=== PATIENT | female | born 1940 ===

== ENCOUNTER 2021-02-12 06:48 | Outpatient (REF) | payer MEDICARE, SELFPAY ==
[2021-02-12 08:34] LABS: Alanine Aminotransferase 12 U/L (0-31); Albumin Level 3.9 g/dL (3.5-5.0); Alkaline Phosphatase 76 U/L (39-117); Anion Gap 13 (12-20); Aspartate Amino Transferase 21 U/L (5-31); Bilirubin Total 0.3 mg/dL (0.0-1.0); Blood Urea Nitrogen 13 mg/dL (9-16); Calcium 8.9 mg/dL (8.4-10.2); Carbon Dioxide 21 mmol/L (22-29); Chloride 101 mmol/L (96-108); Cholesterol 126 mg/dL; Estimated Glomerular Filt Rate > 60; Glucose Fasting 94 mg/dL (60-99); HDL Cholesterol 38 mg/dL; LDL Cholesterol Calculated 65 mg/dl; Potassium 4.8 mmol/L (3.3-5.1); Sodium 130 mmol/L (135-145); Total Protein 7.3 g/dL (6.5-8.0); Triglycerides 116 mg/dL
[2021-02-12 08:47] LABS: TSH reflex Free T4 13.53 uIU/mL (0.32-4.0)
[2021-02-12 09:00] LABS: Thyroid Stimulating Hormone 16.52 uIU/mL (0.32-4.0)
[2021-02-12 10:33] LABS: Free T4 (Free Thyroxine) 1.09 ng/dL (0.71-1.85)
[2021-02-18 12:31] LABS: Vitamin D 25-OH, D2 <4 ng/mL; Vitamin D 25-OH, D3 23 ng/mL; Vitamin D 25-OH, Total 23 ng/mL (30-100)
== END 2021-02-12 06:49 | disposition home or self-care (01) ==
LOC: HO.LAB 06:48
PROVIDERS: PCP Internal Medicine; Visit Provider Internal Medicine
DX: E78.5 Hyperlipidemia, unspecified (principal); E03.9 Hypothyroidism, unspecified; I10 Essential (primary) hypertension; E55.9 Vitamin D deficiency, unspecified
CPT/HCPCS: 36415; 80053; 80061; 82306; 84439; 84443

== ENCOUNTER 2021-08-20 13:07 | Outpatient (REF) | payer MEDICARE, SELFPAY ==
[2021-08-20 14:10] LABS: Alanine Aminotransferase 13 U/L (0-31); Albumin Level 3.9 g/dL (3.5-5.0); Alkaline Phosphatase 71 U/L (39-117); Anion Gap 10 (12-20); Aspartate Amino Transferase 22 U/L (5-31); Bilirubin Total 0.3 mg/dL (0.0-1.0); Blood Urea Nitrogen 20 mg/dL (9-16); Calcium 9.1 mg/dL (8.4-10.2); Carbon Dioxide 24 mmol/L (22-29); Chloride 100 mmol/L (96-108); Cholesterol 118 mg/dL; Estimated Glomerular Filt Rate > 60; Glucose Fasting 108 mg/dL (60-99); HDL Cholesterol 39 mg/dL; LDL Cholesterol Calculated 52 mg/dl; Potassium 4.6 mmol/L (3.3-5.1); Sodium 129 mmol/L (135-145); Triglycerides 136 mg/dL
[2021-08-20 14:30] LABS: Thyroid Stimulating Hormone 0.51 uIU/mL (0.32-4.0)
== END 2021-08-20 13:08 | disposition home or self-care (01) ==
LOC: HO.LAB 13:07
PROVIDERS: PCP Internal Medicine; Visit Provider Internal Medicine
DX: E78.5 Hyperlipidemia, unspecified (principal); E03.9 Hypothyroidism, unspecified
CPT/HCPCS: 36415; 80053; 80061; 84443

== ENCOUNTER 2021-12-31 08:22 | Outpatient (REF) | payer MEDICARE, SELFPAY ==
[2021-12-31 09:18] LABS: Alanine Aminotransferase 16 U/L (0-31); Albumin Level 3.7 g/dL (3.5-5.0); Alkaline Phosphatase 77 U/L (39-117); Anion Gap 13 (12-20); Aspartate Amino Transferase 21 U/L (5-31); Bilirubin Total 0.3 mg/dL (0.0-1.0); Blood Urea Nitrogen 13 mg/dL (9-16); Calcium 8.7 mg/dL (8.4-10.2); Carbon Dioxide 22 mmol/L (22-29); Chloride 101 mmol/L (96-108); Cholesterol 97 mg/dL; Estimated Glomerular Filt Rate > 60; Glucose Fasting 105 mg/dL (60-99); HDL Cholesterol 43 mg/dL; LDL Cholesterol Calculated 39 mg/dl; Potassium 4.9 mmol/L (3.3-5.1); Sodium 131 mmol/L (135-145); Total Protein 6.6 g/dL (6.5-8.0); Triglycerides 75 mg/dL
[2021-12-31 09:21] LABS: Osmolality, Serum 274 mosm/kg (281-305)
[2021-12-31 09:41] LABS: Thyroid Stimulating Hormone 0.32 uIU/mL (0.32-4.0)
== END 2021-12-31 08:23 | disposition home or self-care (01) ==
LOC: HO.LAB 08:22
PROVIDERS: PCP Internal Medicine; Visit Provider Internal Medicine
DX: I10 Essential (primary) hypertension (principal); E03.9 Hypothyroidism, unspecified; E78.5 Hyperlipidemia, unspecified; E87.1 Hypo-osmolality and hyponatremia
CPT/HCPCS: 36415; 80053; 80061; 83930; 84300; 84443

== ENCOUNTER 2022-05-13 08:42 | Inpatient (IN) | payer MEDICARE, SELFPAY ==
[2022-05-13] VITALS (17 sets, daily range): BP systolic 162–210; BP diastolic 47–79; PULSE 81–95; RESP 12–24; TEMP 36–37.5; O2SAT 97–100; BMI 21.6
--- NOTE | 2022-05-13 11:15 | ECG_ITS ---
Test Reason : High blood pressure Blood Pressure : / mmHG Vent. Rate : 092 BPM Atrial Rate : 092 BPM P-R Int : 112 ms QRS Dur : 072 ms QT Int : 338 ms P-R-T Axes : 065 040 052 degrees QTc Int : 417 ms Normal sinus rhythm Normal ECG When compared with ECG of 23-NOV-2019 23:06, No significant change was found Referred By: Janina Meza Electronically Signed By:Moo Sanchez
--- NOTE | 2022-05-13 11:20 | ED.SOB ---
HPI - SOB/Dyspnea General Chief Complaint: Dyspnea Stated Complaint: Difficulty breathing/Swollen legs Time Seen by Provider: 05/13/22 10:57 Source: patient, family (Daughter) and human resources project manager Mode of arrival: ambulatory Limitations: no limitations History of Present Illness HPI Narrative: 82-year-old female brought him with her daughter for evaluation of increase shortness of breath over the past 2 weeks. Patient lives home with her family mostly independent until 2 weeks ago when she started to deteriorate and having difficulty breathing mostly with exertion and sleeping at night, patient also noted that both legs are swollen and edematous bilaterally, subjectively patient thinks she gained weight and more heavier. Patient describes occasional paroxysmal nocturnal dyspnea. No coughing, no sputum production, no fever, no chills, no CP. Patient looks pale daughter stated that her normal color and decline any blood loss in the urine or stool. Related Data Home Medications Medication Instructions Recorded Confirmed bismuth subsalicylate 262 mg/15 mL 524 mg PO Q30M PRN Indigestion 05/13/22 05/13/22 oral suspension (Pepto-Bismol) loratadine 10 mg tablet (Claritin) 10 mg PO DAILY PRN Allergy Symptoms 05/13/22 05/13/22 naproxen sodium 220 mg tablet 220 mg PO Q12H PRN Pain 05/13/22 05/13/22 (Aleve) Previous Rx's Medication Instructions Recorded lisinopril 40 mg tablet 40 mg PO DAILY 90 days #90 tabs 07/06/21 atorvastatin 40 mg tablet 40 mg PO BEDTIME 90 days #90 tabs 04/02/22 levothyroxine 88 mcg tablet 88 mcg PO DAILY #90 tabs 04/02/22 Allergies Allergy/AdvReac Type Severity Reaction Status Date / Time hydrochlorothiazide Allergy Intermediate restlessnes Verified 01/14/22 08:08 s amlodipine AdvReac Intermediate dizziness, Verified 01/14/22 08:08 tiredness Review of Systems Review of Systems: All other systems are reviewed and are negative Constitutional: Reports as per HPI and Reports no additional constitutional complaints Eyes: Reports as per HPI and Reports no additional eye complaints Reports system reviewed and no additional complaints, except as documented Cardiovascular: Reports as per HPI and Reports no additional cardiovascular complaints Respiratory: Reports as per HPI and Reports no additional respiratory complaints Gastrointestinal: Reports as per HPI and Reports no additional gastrointestinal complaints Genitourinary: Reports no additional female genitourinary complaints Musculoskeletal: Reports no additional musculoskeletal complaints Skin/Breast: Reports system reviewed and no additional complaints, except as docu Psychiatric: Reports no additional psychiatric complaints Endocrine: Reports no additional endocrine complaints Hematologic/Lymphatic: Reports no additional hematologic/lymphatic complaints Allergic/Immunologic: Reports no additional allergic/immunologic complaints Reports system reviewed and no additional complaints, except as documented and Reports Abnormal speech present [facility] Past Medical History Medical History Dyslipidemia Essential hypertension Hyponatremia Hypothyroidism Osteoporosis Surgical History History of breast biopsy History of colonoscopy Family History Family History Father No problems noted. Mother In good health Social History Social History Housing: Apartment Alcohol intake: never Patient Tobacco Use Status: Current everyday Tobacco user Tobacco use type: Cigarette Cigarettes Per Day: 3 e-Cigarette/Vaping Use: Never Used Second Hand Smoke Exposure: No Advance Directives: No Advance Directives Information Provided: Yes service: No Current occupational status: disabled Cognitive needs: No Hearing needs: No Vision needs: No Physical Exam Vital Signs: Vital Signs: Last Vital Signs Temp 98.3 F 05/13/22 10:50 Pulse 82 05/13/22 14:00 Resp 18 05/13/22 14:00 BP 171/61 H 05/13/22 14:00 Pulse Ox 99 05/13/22 14:00 O2 Del Method 05/13/22 14:00 BMI result Body Mass Index 21.6 Vital signs have been reviewed as appeared to be correct. Blood pressure normal. Heart rate normal. Respiration rate normal. Temperature normal. Oxygen saturation normal. Appearance: Alert. Oriented X3. No acute distress. Head: Normal external exam. Normocephalic. Atraumatic. No Albrecht signs noted. No raccoon eyes noted Eyes: PERRLA. EOMI. Conjunctiva and sclera normal. Eyelids normal. ENT: TM's Normal. Pharynx normal. Uvula midline. Moist mucous membranes. No trismus noted. No drooling noted. No muffled voice noted. Neck: Normal inspection. Neck supple. FROM. No adenopathy. Thyroid Normal. No meningeal signs. No neck mass noted. CVS: Normal heart rate and rhythm. Heart sound normal. No murmurs noted. Pulses normal throughout. Respiratory: No respiratory distress. Painless inspiration. Breath sounds normal. Bilateral basilar rales. Chest nontender. No accessory muscle usage noted or decreased air movement noted. Abdomen: Soft and nontender. Bowel sounds normal in all 4 quadrants. No distention noted. No organomegaly noted. No visible injury noted. Rectal exam: Brown stool with no blood. Back: No CVA tenderness. Full range of motion noted. Skin: Skin warm and dry. Normal skin color. Normal skin turgor. No rashes/lesions/lacerations noted. Extremities: +3 bilateral lower extremity pitting edema. Extremities exhibit normal range of motion. Extremities nontender. Neuro: Oriented X 3. Cranial nerve exam: II-XII are grossly intact No motor deficit. No sensory deficit. Reflexes normal. Course Course Course Narrative: 82-year-old female came in for evaluation of severe shortness of breath that is progressively getting worse over the past 2 weeks with progressive swelling of bilateral lower extremities found to be severely anemic with significant drop of H&H with no obvious source of blood loss. Will require diuresis/nitro/blood transfusion/serial CBC/admission. Medications Administered Discontinued Medications Generic Name Dose Route Start Last Admin Trade Name Freq PRN Reason Stop Dose Admin Furosemide 40 mg 05/13/22 11:24 05/13/22 11:46 Furosemide 40 Mg/4 Ml Vial IVPUSH 05/13/22 11:25 40 mg ONCE ONE Administration Protocol Nitroglycerin 0.5 inch 05/13/22 11:25 05/13/22 11:45 Nitroglycerin 2 % Oint 1 Gm Packet TRANSDERMA 05/13/22 11:26 0.5 inch ONCE ONE Administration Medical Decision Making Differential Diagnosis Differential Diagnoses: The differential diagnosis associated with the presentation includes (Severe anemia, acute/chronic blood loss, congestive heart failure, ACS.) Admission/Observation Consideration of admission/observation: Escalation of care including admission/observation considered Consult Healthcare Provider Management of the patient was discussed with: Hospitalist Lab Data MDM Lab Attestation statement: I reviewed the patient's lab results. Result Diagrams: 05/13/22 11:33 05/13/22 11:34 Labs: Lab Results 05/13/22 05/13/22 05/13/22 Range/Units 11:24 11:33 11:33 WBC 4.3 L (4.8-10.8) X10*3/uL RBC 3.52 L (4.20-5.50) X10*6/uL Hgb 4.6 L* (12.0-16.0) g/dl Hct 18.9 L* (37.0-47.0) % MCV 53.7 L (80.0-98.0) fL MCH 13.1 L (27.0-33.0) pg MCHC 24.3 L (31.0-35.0) g/dl RDW 23.5 H (11.0-16.0) % Plt Count 273 (160-400) X10*3/uL MPV Not Reportable Immature Gran % (Auto) 0.7 H (0.0-0.4) % Neut % (Auto) 72.0 (45-73) % Lymph % (Auto) 18.2 L (20-40) % [place] % (Auto) 7.5 (2-11) % Eos % (Auto) 0.2 (0-4) % Baso % (Auto) 1.4 (0-2) % Lymph # (Auto) 0.8 L (1.2-4.9) X10*3/uL [place] # (Auto) 0.3 (0.1-1.2) X10*3/uL Eos # (Auto) 0.0 (0.0-0.4) X10*3/uL Baso # (Auto) 0.1 (0.0-0.2) X10*3/uL Abs Immat Gran (auto) 0.03 (0.00-0.03) X10*3/uL Absolute Neuts (auto) 3.1 (2.0-8.3) x10*3/uL Absolute Nucleated RBC 0.030 H (0.0-0.012) X10*3/uL Nucleated RBC % (auto) 0.7 H (0.0-0.2) /100WBC Sodium (135-145) mmol/L Potassium (3.3-5.1) mmol/L Chloride (96-108) mmol/L Carbon Dioxide (22-29) mmol/L Anion Gap (12-20) BUN (9-16) mg/dL Creatinine (0.5-1.4) mg/dL Estim Creat Clear Calc Estimated GFR Random Glucose (60-115) mg/dL Calcium (8.4-10.2) mg/dL Total Bilirubin (0.0-1.0) mg/dL Direct Bilirubin (0.0-0.5) mg/dL AST (5-31) U/L ALT (0-31) U/L Alkaline Phosphatase (39-117) U/L Troponin I High Sens 16.9 (<3.5-17.0) ng/L B-Natriuretic Peptide (<100) pg/mL Total Protein (6.5-8.0) g/dL Albumin (3.5-5.0) g/dL Lipase (8-78) U/L Urine Color Urine Appearance Urine pH (5.0-9.0) Ur Specific [place] (1.005-1.025) Urine Protein (Neg-Trace) mg/dL Urine Glucose (UA) (Negative) mg/dL Urine Ketones (Negative) mg/dL Urine Blood (Negative) Urine Nitrite (Negative) Ur Leukocyte Esterase (Negative) Urine RBC (0-2) /HPF Urine WBC (0-5) /HPF Ur Squamous Epith Cells (0-2) /HPF Urine Bacteria (None Seen) Hyaline Casts (0-2) /LPF Stool Occult Blood (NEGATIVE) Influenza Type A (PCR) NEGATIVE (Negative) Influenza Type B (PCR) NEGATIVE (Negative) RSV RNA Qual (PCR) NEGATIVE (Negative) SARS-CoV-2 RNA (RT-PCR) NEGATIVE (Negative) Blood Type Antibody Screen Crossmatch 05/13/22 05/13/22 05/13/22 Range/Units 11:34 11:34 11:38 WBC (4.8-10.8) X10*3/uL RBC (4.20-5.50) X10*6/uL Hgb (12.0-16.0) g/dl Hct (37.0-47.0) % MCV (80.0-98.0) fL MCH (27.0-33.0) pg MCHC (31.0-35.0) g/dl RDW (11.0-16.0) % Plt Count (160-400) X10*3/uL MPV Immature Gran % (Auto) (0.0-0.4) % Neut % (Auto) (45-73) % Lymph % (Auto) (20-40) % [place] % (Auto) (2-11) % Eos % (Auto) (0-4) % Baso % (Auto) (0-2) % Lymph # (Auto) (1.2-4.9) X10*3/uL [place] # (Auto) (0.1-1.2) X10*3/uL Eos # (Auto) (0.0-0.4) X10*3/uL Baso # (Auto) (0.0-0.2) X10*3/uL Abs Immat Gran (auto) (0.00-0.03) X10*3/uL Absolute Neuts (auto) (2.0-8.3) x10*3/uL Absolute Nucleated RBC (0.0-0.012) X10*3/uL Nucleated RBC % (auto) (0.0-0.2) /100WBC Sodium 129 L (135-145) mmol/L Potassium 4.1 (3.3-5.1) mmol/L Chloride 99 (96-108) mmol/L Carbon Dioxide 24 (22-29) mmol/L Anion Gap 10 L (12-20) BUN 9 (9-16) mg/dL Creatinine 0.69 (0.5-1.4) mg/dL Estim Creat Clear Calc 38.9 Estimated GFR > 60 Random Glucose 108 (60-115) mg/dL Calcium 8.8 (8.4-10.2) mg/dL Total Bilirubin 0.6 (0.0-1.0) mg/dL Direct Bilirubin 0.3 (0.0-0.5) mg/dL AST 31 (5-31) U/L ALT 22 (0-31) U/L Alkaline Phosphatase 77 (39-117) U/L Troponin I High Sens (<3.5-17.0) ng/L B-Natriuretic Peptide 1056 H (<100) pg/mL Total Protein 6.6 (6.5-8.0) g/dL Albumin 3.7 (3.5-5.0) g/dL Lipase 19 (8-78) U/L Urine Color Yellow Urine Appearance Clear Urine pH 7.0 (5.0-9.0) Ur Specific [place] 1.010 (1.005-1.025) Urine Protein Trace (Neg-Trace) mg/dL Urine Glucose (UA) Negative (Negative) mg/dL Urine Ketones Negative (Negative) mg/dL Urine Blood Negative (Negative) Urine Nitrite Negative (Negative) Ur Leukocyte Esterase Trace H (Negative) Urine RBC 0-2 (0-2) /HPF Urine WBC 0-5 (0-5) /HPF Ur Squamous Epith Cells 0-2 (0-2) /HPF Urine Bacteria None Seen (None Seen) Hyaline Casts 0-2 (0-2) /LPF Stool Occult Blood (NEGATIVE) Influenza Type A (PCR) (Negative) Influenza Type B (PCR) (Negative) RSV RNA Qual (PCR) (Negative) SARS-CoV-2 RNA (RT-PCR) (Negative) Blood Type Antibody Screen Crossmatch 05/13/22 05/13/22 Range/Units 12:52 12:59 WBC (4.8-10.8) X10*3/uL RBC (4.20-5.50) X10*6/uL Hgb (12.0-16.0) g/dl Hct (37.0-47.0) % MCV (80.0-98.0) fL MCH (27.0-33.0) pg MCHC (31.0-35.0) g/dl RDW (11.0-16.0) % Plt Count (160-400) X10*3/uL MPV Immature Gran % (Auto) (0.0-0.4) % Neut % (Auto) (45-73) % Lymph % (Auto) (20-40) % [place] % (Auto) (2-11) % Eos % (Auto) (0-4) % Baso % (Auto) (0-2) % Lymph # (Auto) (1.2-4.9) X10*3/uL [place] # (Auto) (0.1-1.2) X10*3/uL Eos # (Auto) (0.0-0.4) X10*3/uL Baso # (Auto) (0.0-0.2) X10*3/uL Abs Immat Gran (auto) (0.00-0.03) X10*3/uL Absolute Neuts (auto) (2.0-8.3) x10*3/uL Absolute Nucleated RBC (0.0-0.012) X10*3/uL Nucleated RBC % (auto) (0.0-0.2) /100WBC Sodium (135-145) mmol/L Potassium (3.3-5.1) mmol/L Chloride (96-108) mmol/L Carbon Dioxide (22-29) mmol/L Anion Gap (12-20) BUN (9-16) mg/dL Creatinine (0.5-1.4) mg/dL Estim Creat Clear Calc Estimated GFR Random Glucose (60-115) mg/dL Calcium (8.4-10.2) mg/dL Total Bilirubin (0.0-1.0) mg/dL Direct Bilirubin (0.0-0.5) mg/dL AST (5-31) U/L ALT (0-31) U/L Alkaline Phosphatase (39-117) U/L Troponin I High Sens (<3.5-17.0) ng/L B-Natriuretic Peptide (<100) pg/mL Total Protein (6.5-8.0) g/dL Albumin (3.5-5.0) g/dL Lipase (8-78) U/L Urine Color Urine Appearance Urine pH (5.0-9.0) Ur Specific [place] (1.005-1.025) Urine Protein (Neg-Trace) mg/dL Urine Glucose (UA) (Negative) mg/dL Urine Ketones (Negative) mg/dL Urine Blood (Negative) Urine Nitrite (Negative) Ur Leukocyte Esterase (Negative) Urine RBC (0-2) /HPF Urine WBC (0-5) /HPF Ur Squamous Epith Cells (0-2) /HPF Urine Bacteria (None Seen) Hyaline Casts (0-2) /LPF Stool Occult Blood NEGATIVE (NEGATIVE) Influenza Type A (PCR) (Negative) Influenza Type B (PCR) (Negative) RSV RNA Qual (PCR) (Negative) SARS-CoV-2 RNA (RT-PCR) (Negative) Blood Type O Positive Antibody Screen NEGATIVE Crossmatch See Detail Independent Interpretation I performed an independent interpretation of an: EKG (Normal sinus rhythm at 92 beats per minute, normal axis deviation, normal intervals, no ischemic ST-T changes.) and Plain X-Ray (Pulmonary congestion.) Radiology Impression Discussion of test interpretation with radiology: I have reviewed the radiologist's reading. Critical Care Time Critical Care Time Critical Care Time: Yes Total Critical Care Time: 60 Attestation: I spent 60 minutes providing critical care service to the patient, this including time spent at the bedside to evaluate the patient, reassess the patient, monitoring vital signs, review labs, and radiographic studies, counseling the patient/family, discussing the case with consultants, disposition the patient. Discharge Plan Discharge Clinical Impression: Congestive heart failure, Severe anemia Patient Disposition: Admitted As Inpatient
[2022-05-13 11:44] LABS: MANUAL DIFF FLAG NO
[2022-05-13 11:54] LABS: Appearance Urine Clear; Color Urine Yellow; Glucose Urine UA Negative (Negative); Leukocyte Esterase Urine Trace (Negative); Nitrite Urine Negative (Negative); UMIC TRIGGER UACC YES; Urine Blood Negative (Negative); Urine Ketones Negative (Negative); Urine Protein Trace mg/dL (Neg-Trace)
[2022-05-13 11:58] LABS: Basophils Absolute Auto 0.1 X10*3/uL (0.0-0.2); Basophils Percent Auto 1.4 % (0-2); Eosinophils Percent Auto 0.2 % (0-4); Imm Gran Abs Auto 0.03 X10*3/uL (0.00-0.03); Imm Gran Pct Auto 0.7 % (0.0-0.4); Lymphocytes Absolute Auto 0.8 X10*3/uL (1.2-4.9); Lymphocytes Percent Auto 18.2 % (20-40); Mean Corpuscular HGB Conc 24.3 g/dl (31.0-35.0); Mean Corpuscular Hemoglobin 13.1 pg (27.0-33.0); Monocytes Absolute Auto 0.3 X10*3/uL (0.1-1.2); Monocytes Percent Auto 7.5 % (2-11); NRBC Pct Auto 0.7 /100WBC (0.0-0.2); Neutrophils Absolute Auto 3.1 x10*3/uL (2.0-8.3); Platelet Count 273 X10*3/uL (160-400); Red Blood Count 3.52 X10*6/uL (4.20-5.50); Red Cell Distribution Width 23.5 % (11.0-16.0); White Blood Count 4.3 X10*3/uL (4.8-10.8)
[2022-05-13 11:59] LABS: Bacteria Urine None Seen (None Seen); Hyaline Casts Urine 0-2 /LPF (0-2); RBC Urine 0-2 /HPF (0-2); Squamous Epithelial Cell Urine 0-2 /HPF (0-2); WBC Urine 0-5 /HPF (0-5)
--- NOTE | 2022-05-13 12:00 | PC.NURSE ---
per pt's daughter, pt sob, weak, unable to stand or walk on her own. pt usually independent with self care/ambulation. this morning pt weak and needed assistance to walk to the bathroom, c/o sob with mild exertion. daughter also reported swelling in BLE. +1 edema to BLE. LS wheezes upper lobes. skin pale, pt's daughter reported that she is always pale. pt denies chest pain/berumen/n/v. SBP high 190s. O2 sat 98-100% r/a. pt's daughter at bedside. will continue to observe.
[2022-05-13 12:01] LABS: Hematocrit 18.9 % (37.0-47.0); Hemoglobin 4.6 g/dl (12.0-16.0); Mean Corpuscular Volume 53.7 fL (80.0-98.0)
[2022-05-13 12:06] LABS: Influenza A PCR NEGATIVE (Negative); Influenza B PCR NEGATIVE (Negative); Resp Syncy Virus RNA Qual PCR NEGATIVE (Negative); SARS COV2 PCR INHOUSE NEGATIVE (Negative)
[2022-05-13 12:07] LABS: Alanine Aminotransferase 22 U/L (0-31); Albumin Level 3.7 g/dL (3.5-5.0); Alkaline Phosphatase 77 U/L (39-117); Anion Gap 10 (12-20); Aspartate Amino Transferase 31 U/L (5-31); Bilirubin Direct 0.3 mg/dL (0.0-0.5); Bilirubin Total 0.6 mg/dL (0.0-1.0); Blood Urea Nitrogen 9 mg/dL (9-16); Calcium 8.8 mg/dL (8.4-10.2); Carbon Dioxide 24 mmol/L (22-29); Chloride 99 mmol/L (96-108); Creatinine Clr Calc Pharmacy 38.9; Estimated Glomerular Filt Rate > 60; Glucose Random 108 mg/dL (60-115); Lipase 19 U/L (8-78); Potassium 4.1 mmol/L (3.3-5.1); Sodium 129 mmol/L (135-145); Total Protein 6.6 g/dL (6.5-8.0)
[2022-05-13 12:12] LABS: B Type Natriuretic Peptide 1056 pg/mL (<100)
[2022-05-13 12:14] LABS: Troponin-I High Sensitivity 16.9 ng/L (<3.5-17.0)
[2022-05-13 12:58] LABS: OBS Int Ctl Valid YES; OBS1 NEGATIVE (NEGATIVE)
--- NOTE | 2022-05-13 13:11 | PHA.MEDREC ---
Pharmacy Consult ? Medication Reconciliation Pharmacy has completed the medication reconciliation. Patient's daughter had rx bottles with her. She was able to report any OTC medications. Litzy Metz, MeenaD
--- NOTE | 2022-05-13 13:54 | PC.NURSE ---
iv lasix given as documented, urine output 1L via purewick. SBP 179, no apparent distress, resting quietly. daughter at bedside.
--- NOTE | 2022-05-13 15:19 | PM.IMHP ---
History of Present Illness Date of Service: 05/13/22 Chief Complaint: sob 82F PMH chronic hyopnateremia, osteoporosis, HTN, hypothyroid, hld, presented with sob and le edema. patient reports difficulty with blood pressure control for past 2 months. over past 2 weeks has had progressive lower extremity edema and sob. sob is present at rest, worse on exertion, positive orthopnea. patient has been taking alleve every day for years. reports heartburn symptoms. denies chest pain, black or red stools. in ED noted to have severe microcytic anemia with hgb 4.6. elevated BNP, vascular ocngestion on cxr, not hypoxic. Review of Systems Review of Systems: Constitutional: Denies fever, denies Chills Eyes: denies blurry vision ENT: denies sore throat CVS: chest pain Respiratory: Denies dyspnea GI: no abdominal pain : denies dysuria MSK: denies neck pain Skin: denies rash Neuro: denies specific motor weakness Psych: denies suicidal ideation Endocrine: denies heat/cold intolerance Hematologic: denies easy bleeding Allergy: denies hives [facility] Medical History Dyslipidemia Essential hypertension Hyponatremia Hypothyroidism Osteoporosis Family History Father No problems noted. Mother In good health Surgical History History of breast biopsy History of colonoscopy Social History Housing: Apartment Alcohol intake: never Patient Tobacco Use Status: Current everyday Tobacco user Tobacco use type: Cigarette Cigarettes Per Day: 3 e-Cigarette/Vaping Use: Never Used Second Hand Smoke Exposure: No Advance Directives: No Advance Directives Information Provided: Yes service: No Current occupational status: disabled Cognitive needs: No Hearing needs: No Vision needs: No Meds Allergies Allergy/AdvReac Type Severity Reaction Status Date / Time hydrochlorothiazide Allergy Intermediate restlessnes Verified 01/14/22 08:08 s amlodipine AdvReac Intermediate dizziness, Verified 01/14/22 08:08 tiredness Active Medications: Current Medications Atorvastatin Calcium (Atorvastatin Calcium 40 Mg Tablet) 40 mg PO BEDTIME IRENA Furosemide (Furosemide 40 Mg/4 Ml Vial) 40 mg IVPUSH BID@0900,1800 [facility]; Protocol Levothyroxine Sodium (Levothyroxine Sodium 88 Mcg Tablet) 88 mcg PO DAILY@0600 [facility] Lisinopril (Lisinopril 40 Mg Tablet) 40 mg PO DAILY [facility]; Protocol Pantoprazole Sodium (Pantoprazole Sodium 40 Mg/10 Ml Vial) 40 mg IVPUSH BID@0630,1630 [facility] Pharmacy Consult (Consult Rx Perform Med Rec) 1 each MISCELLANE ONCE PRN PRN Reason: Consult order Home Medications Medication Instructions Recorded Confirmed Last Taken Type bismuth subsalicylate 262 mg/15 mL 524 mg PO Q30M PRN Indigestion 05/13/22 05/13/22 Unknown History oral suspension (Pepto-Bismol) loratadine 10 mg tablet (Claritin) 10 mg PO DAILY PRN Allergy Symptoms 05/13/22 05/13/22 Unknown History naproxen sodium 220 mg tablet 220 mg PO Q12H PRN Pain 05/13/22 05/13/22 Unknown History (Aleve) Physical Exam Vital Signs and Narrative: Vital Signs: Last Vital Signs Temp 98.3 F 05/13/22 10:50 Pulse 82 05/13/22 14:00 Resp 18 05/13/22 14:00 BP 171/61 H 05/13/22 14:00 Pulse Ox 99 05/13/22 14:00 O2 Del Method 05/13/22 14:00 BMI result Body Mass Index 21.6 General: no acute distress, pallor HEENT: atraumatic Neck: normal to visual inspection CVS: S1, S2, RRR Resp: Crackles bilateral Chest: non tender GI: soft, non tender, non distended : no CVA tenderness Skin: no rashes Extremities: 2-3+ bilateral LE edema Neuro: Oriented X3, grossly intact Psych: cooperative Results Labs CBC and Chem 7: 05/13/22 11:33 05/13/22 11:34 Labs: Laboratory Results - last 24 hr 05/13/22 05/13/22 05/13/22 11:24 11:33 11:33 MCV 53.7 L MCH 13.1 L MCHC 24.3 L RDW 23.5 H Plt Count 273 MPV Not Reportable Immature Gran % (Auto) 0.7 H Neut % (Auto) 72.0 Lymph % (Auto) 18.2 L [place] % (Auto) 7.5 Eos % (Auto) 0.2 Baso % (Auto) 1.4 Lymph # (Auto) 0.8 L [place] # (Auto) 0.3 Eos # (Auto) 0.0 Baso # (Auto) 0.1 Abs Immat Gran (auto) 0.03 Absolute Neuts (auto) 3.1 Absolute Nucleated RBC 0.030 H Nucleated RBC % (auto) 0.7 H Anion Gap Estim Creat Clear Calc Estimated GFR Random Glucose Calcium Total Bilirubin Direct Bilirubin AST ALT Alkaline Phosphatase Troponin I High Sens 16.9 B-Natriuretic Peptide Total Protein Albumin Lipase Urine Color Urine Appearance Urine pH Ur Specific [place] Urine Protein Urine Glucose (UA) Urine Ketones Urine Blood Urine Nitrite Ur Leukocyte Esterase Urine RBC Urine WBC Ur Squamous Epith Cells Urine Bacteria Hyaline Casts Stool Occult Blood Influenza Type A (PCR) NEGATIVE Influenza Type B (PCR) NEGATIVE RSV RNA Qual (PCR) NEGATIVE SARS-CoV-2 RNA (RT-PCR) NEGATIVE Blood Type Antibody Screen Crossmatch 05/13/22 05/13/22 05/13/22 11:34 11:34 11:38 MCV MCH MCHC RDW Plt Count MPV Immature Gran % (Auto) Neut % (Auto) Lymph % (Auto) [place] % (Auto) Eos % (Auto) Baso % (Auto) Lymph # (Auto) [place] # (Auto) Eos # (Auto) Baso # (Auto) Abs Immat Gran (auto) Absolute Neuts (auto) Absolute Nucleated RBC Nucleated RBC % (auto) Anion Gap 10 L Estim Creat Clear Calc 38.9 Estimated GFR > 60 Random Glucose 108 Calcium 8.8 Total Bilirubin 0.6 Direct Bilirubin 0.3 AST 31 ALT 22 Alkaline Phosphatase 77 Troponin I High Sens B-Natriuretic Peptide 1056 H Total Protein 6.6 Albumin 3.7 Lipase 19 Urine Color Yellow Urine Appearance Clear Urine pH 7.0 Ur Specific [place] 1.010 Urine Protein Trace Urine Glucose (UA) Negative Urine Ketones Negative Urine Blood Negative Urine Nitrite Negative Ur Leukocyte Esterase Trace H Urine RBC 0-2 Urine WBC 0-5 Ur Squamous Epith Cells 0-2 Urine Bacteria None Seen Hyaline Casts 0-2 Stool Occult Blood Influenza Type A (PCR) Influenza Type B (PCR) RSV RNA Qual (PCR) SARS-CoV-2 RNA (RT-PCR) Blood Type Antibody Screen Crossmatch 05/13/22 05/13/22 12:52 12:59 MCV MCH MCHC RDW Plt Count MPV Immature Gran % (Auto) Neut % (Auto) Lymph % (Auto) [place] % (Auto) Eos % (Auto) Baso % (Auto) Lymph # (Auto) [place] # (Auto) Eos # (Auto) Baso # (Auto) Abs Immat Gran (auto) Absolute Neuts (auto) Absolute Nucleated RBC Nucleated RBC % (auto) Anion Gap Estim Creat Clear Calc Estimated GFR Random Glucose Calcium Total Bilirubin Direct Bilirubin AST ALT Alkaline Phosphatase Troponin I High Sens B-Natriuretic Peptide Total Protein Albumin Lipase Urine Color Urine Appearance Urine pH Ur Specific [place] Urine Protein Urine Glucose (UA) Urine Ketones Urine Blood Urine Nitrite Ur Leukocyte Esterase Urine RBC Urine WBC Ur Squamous Epith Cells Urine Bacteria Hyaline Casts Stool Occult Blood NEGATIVE Influenza Type A (PCR) Influenza Type B (PCR) RSV RNA Qual (PCR) SARS-CoV-2 RNA (RT-PCR) Blood Type O Positive Antibody Screen NEGATIVE Crossmatch See Detail Imaging Radiologist's Impressions: Impressions Chest X-Ray 05/13/22 11:29 IMPRESSION: Abnormal chest radiograph showing features consistent with CHF versus pneumonia or combination thereof. Assessment and Plan (1) Congestive heart failure: Status: Acute Plan 82F PMH chronic hyopnateremia, osteoporosis, HTN, hypothyroid, hld, presented with sob and le edema acute unspecified CHF iv lasix, echo, monitor lytes severe iron deficiency anemia likely chronic blood loss transfusing 2 units prbc monitor lytes ppi hold nsaids gi eval HTN lisinopril hypothyroid synthroid hyopnatremia 129 fluid restrict, monitor hld statin dvt prophylaxis - mechanical due to suspected gi bleed full code pateint with chf and severe anemia requiring multiple transfusions and iv lasix, therefore, will need 2 midnights inpatient. Time Spent With Patient Time: Total time managing care of this patient today ____ minutes. Quality Stroke Does the patient have a stroke diagnosis?: No VTE Prior VTE?: No VTE Risk Level:: Medical - moderate - high VTE Device Contraindication: N/A - Device Ordered VTE Drug Contraindication: Treatment Not Tolerated
[2022-05-13 15:22] LABS: Ferritin 4 ng/mL (10-250); Iron 11 mcg/dL (30-160); Percent Iron Saturation 2 % (15-50); Total Iron Binding Capacity 450 mcg/dL (228-428); Unsaturated Iron Binding 439 ug/dL
--- NOTE | 2022-05-13 15:30 | PC.NURSE ---
blood transfusion started, pt tolerating well. LSCTA, vss, afebrile, pt denies c/p/sob/dizziness/berumen. no s/s of adverse reaction, no apparent distress, pt resting quietly. daughter at bedside. this data analyst report writer remains at bedside, will continue to observe.
--- NOTE | 2022-05-13 15:45 | PC.NURSE ---
blood transfusion infusing, pt tolerating well. no s/s of adverse reaction. afebrile, vss, LSCTA. daughter at bedside. will continue to observe.
--- NOTE | 2022-05-13 17:32 | PC.NURSE ---
blood transfusion completed, vss, afebrile, no sob/dizziness. denies c/p. no complaints. daughter at bedside. pt assigned to rm [id number], report given to RN.
[2022-05-13] MEDS: Pantoprazole Sodium 40 MG/10 ML VIAL IVPUSH (18:42)
[2022-05-13] MEDS: Atorvastatin Calcium 40 MG TABLET PO (20:23)
[2022-05-14 03:36] VITALS: BP 134/64; PULSE 88; RESP 15; TEMP 36.5; O2SAT 98
[2022-05-14] MEDS: Pantoprazole Sodium 40 MG/10 ML VIAL IVPUSH ×2 (05:53→16:40)
[2022-05-14] MEDS: Levothyroxine Sodium 88 MCG TABLET PO (05:53)
[2022-05-14 06:34] LABS: Hematocrit 29.3 % (37.0-47.0); Hemoglobin 8.8 g/dl (12.0-16.0); Mean Corpuscular Hemoglobin 18.6 pg (27.0-33.0); Platelet Count 220 X10*3/uL (160-400); Red Blood Count 4.73 X10*6/uL (4.20-5.50); Red Cell Distribution Width 30.9 % (11.0-16.0); White Blood Count 6.2 X10*3/uL (4.8-10.8)
[2022-05-14 06:42] LABS: Anion Gap 15 (12-20); Blood Urea Nitrogen 10 mg/dL (9-16); Calcium 8.2 mg/dL (8.4-10.2); Carbon Dioxide 25 mmol/L (22-29); Chloride 96 mmol/L (96-108); Creatinine Clr Calc Pharmacy 40.1; Estimated Glomerular Filt Rate > 60; Glucose Fasting 87 mg/dL (60-99); Potassium 2.9 mmol/L (3.3-5.1); Sodium 133 mmol/L (135-145)
--- NOTE | 2022-05-14 07:00 | CA_ITS ---
Transthoracic Echocardiogram Patient (Last, First, Middle): Carly Johnston, Gender: Female Date of : 1940 Age: 82 Procedure Date: 05/14/2022 Procedure Type: Transthoracic Echocardiogram [place] [facility] [place]: 144.78 cm Weight: 44.91 kg BSA: 1.33 m2 Heart Rate: bpm BP: 180 / 77 mmHg Clinical Quality Manager: Referring MD: Sonny Edgar MD Speech Language Pathologist Travel: Amanuel Hitchcock MD Symptoms: chf Study Quality: Fair ECG Rhythm: Sinus Conclusions: - 1. Normal LV systolic function with mild LVH with grade 2 diastolic dysfunction 2. Mildly dilated left atrium 3. Moderate to severe aortic stenosis with valve area of about 1.1 centimeters sq with mean gradient of 25 mmHg consistent with paradoxical low-flow aortic stenosis 4. Normal RV systolic pressure 5. No gross pericardial effusion Findings Left Ventricle Normal left ventricular size and systolic function. There is mildly increased left ventricular wall thickness. The visually estimated ejection fraction is between 60-65%. Spectral Doppler is indicative of a pseudonormal filling pattern. E/E prime ratio is >15, consistent with elevated filling pressures. Evidence suggests grade II (moderate) diastolic dysfunction. Right Ventricle Normal right ventricular cavity size and systolic function. Atria The left atrium is mildly dilated. There is no evidence of interatrial shunt. The right atrium is normal in size. Aortic Valve There is mild calcification of the aortic valve. There is mild thickening of the aortic valve. There is moderate to severe aortic valve stenosis. The peak aortic gradient is 43 mmHg.The mean gradient is 25 mmHg. The aortic valve area is 1.04 cm2. There is no aortic valve regurgitation. Mitral Valve There is mild anterior and posterior mitral leaflet thickening. There is mild mitral annular calcification. There is trace mitral valve regurgitation. There is no mitral valve stenosis. Pulmonic Valve The pulmonic valve was not well visualized. Tricuspid Valve Likely normal tricuspid valve structure and function. There is mild tricuspid valve regurgitation. The right ventricular systolic pressure is 35 mmHg. Normal right atrial pressure. There is no evidence of pulmonary hypertension. Great Vessels All visible segments of the aorta are normal in size. The pulmonary artery was not well visualized. Venous The inferior vena cava is normal in size and collapses greater than 50% with inspiration. Pericardium/Pleural There is no evidence of pericardial effusion. Measurements 2D Linear Measurements IVSd: 1.23 0.6-0.9/0.6-1.0 cm LVIDd: 3.33 3.9-5.3/4.2-5.9 cm LVIDd Index: 2.50 2.4-3.2/2.2-3.1 cm/m2 LVIDs: 1.94 2.0-3.6 cm LVPWd: 1.22 0.7-1.1 cm Ao Root: 2.90 2.1-3.5 cm LA Diam: 4.00 2.7-3.8/3.0-4.0 cm LAIDs Index: 3.01 1.5-2.3 cm/m2 LV Mass: 162.42 67-162/88-224 g LV Mass Index: 122.12 43-95/49-115 g/m2 LVOT Diam: 2.00 3.0+(-)1.3 cm Mitral Valve MV Pk E: 1.19 MV PK A: 0.99 MV Decel Time: 201.00 E/A: 1.20 E'Lateral: 6.96 E'Medial: 4.90 E/E' Med: 24.30 E/E' Lat: 17.10 PHT: 59.00 MVA PHT: 3.73 Decel Jewell: 5.89 Aortic Valve AoV Pk Augusto: 3.28 AoV Mn Augusto: 2.30 AoV VTI: 0.75 AoV Pk Grad: 43.00 Aov Mn Grad: 25.00 HAMZAH Cont.VTI: 1.04 LVOT LVOT Pk Augusto: 1.08 LVOT Mn Augusto: 0.70 LVOT VTI: 0.25 LVOT Pk Grad: 5.00 LVOT Mn Grad: 2.00 LVOT Diam: 2.00 LVOT Area: 3.14 Diastolic Function MV Pk E: 1.19 MV Pk A: 0.99 E/A: 1.20 E'Medial: 4.90 E/E' Med: 24.30 E' Laterial: 6.96 E/E' Lat: 17.10 Right Ventricle TAPSE (mm): 24.00 TVS' Augusto: 21.00 Tricuspid Valve TR Pk Augusto: 2.82 TR Pk Grad: 32.00 RA Press: 3.00 RVSP: 35.00 Great Vessels Aorta Ao Root-2D: 2.90 2.0-3.7 cm Ao Asc: 2.50 2.1-3.4 cm Pulmonary Valve PV Pk Augusto: 1.34 Peak PV Grad: 7.00 Updated in Other Vendor System with Status of Final Amanuel Hitchcock MD electronically signed on 05/14/2022 4:34:43 PM with status of Final
[2022-05-14 07:06] LABS: Mean Corpuscular Volume 61.9 fL (80.0-98.0)
[2022-05-14 07:07] VITALS: BP 180/77; PULSE 83; RESP 12; TEMP 36.7; O2SAT 97
[2022-05-14] MEDS: Potassium Chloride ER 20 MEQ TAB.ER.PRT 40 MEQ PO (09:04)
[2022-05-14] MEDS: Furosemide 20 MG TABLET PO (09:05)
[2022-05-14] MEDS: lisinopriL 40 MG TABLET PO (09:05)
--- NOTE | 2022-05-14 09:21 | PM.GICN ---
History of Present Illness Data of Consult Service Date: 05/14/22 Requesting physician: Sonny Edgar Primary Care Provider: Allegra Blum MD HPI Reason for consult: severe anemia 82 year old Frisian-speaking female with chronic hyopnateremia, osteoporosis, HTN, hypothyroid, hld brought to [facility] [place] [facility] by her daughter on 05/13/22 with sob and le edema. History obtained with the help of her daughter and HCP, Lottie Yu, who was at her bedside Patient reported difficulty with blood pressure control for past 2 months. over past 2 weeks has had progressive lower extremity edema and sob. Sob is present at rest, worse on exertion, positive orthopnea. Pt admits to symptoms of heartburn and denies abdominal pain, dysphagia, nausea, vomiting, change in appetite. She generally eats very little. Patient admits to taking Prilosec 20 mg once daily for GERD. She denies recent change in bowel habits, constipation, diarrhea, black stools or rectal bleeding. She had constipation 4 months ago and none recently. Pt denied coughing, sputum production, fever, chills, or CP. subjectively patient thinks she gained weight and more heavier. Patient has a hx of mild and last seen by Cardiology in 2018 She denies major pulmonary problems, loud snoring or sleep apnea (admits to disruptive sleep) Patient has a history of vertigo years ago - still feels dizzy if she moves quickly. Denies problems with anesthesia in the past. Patient admits to taking Aleve 2 pills a day for the past several years and denies being on chronic anticoagulation. Pt smokes 1-2 cigarettes daily since she was in her 40s. Pt lives with her and an adult son and was independent with ADLs until 2 weeks ago. Patient denies known family history of colon polyps, colon cancer or other GI malignancies. PAST EGD/COLONOSCOPY: Pt reports having an EGD for GERD symptoms > 10 yrs ago She admits to having colonoscopies x 2 - one in her 60's and 2nd at age 76 yrs Per patient - EGD and both colonoscopies were negative (? at [facility] [place] - no records [facility] Labs in ED showed severe microcytic anemia with hgb 4.6. and hct of 18.9, elevated BNP. She she was transfused 2 units of packed red blood cells overnight. Repeat H&H this morning was 8.8 and 29.3 Iron studies cw iron def anemia Stool occult blood was negative Review of Systems Review of Systems: Constitutional: Denies fever, denies Chills Eyes: denies blurry vision ENT: denies sore throat CVS: chest pain Respiratory: Denies dyspnea GI: no abdominal pain : denies dysuria MSK: denies neck pain Skin: denies rash Neuro: denies specific motor weakness Psych: denies suicidal ideation Endocrine: denies heat/cold intolerance Hematologic: denies easy bleeding Allergy: denies hives PMFSH Past Medical History Medical History Dyslipidemia Essential hypertension Hyponatremia Hypothyroidism Osteoporosis Family History Family History Father No problems noted. Mother In good health Surgical History Surgical History History of breast biopsy History of colonoscopy Social History Social History Household Members: Spouse and Children Housing: House Do you presently have visiting nurse or other home services: No Alcohol intake: never Patient Tobacco Use Status: Current everyday Tobacco user Tobacco use type: Cigarette Cigarettes Per Day: 3 e-Cigarette/Vaping Use: Never Used Second Hand Smoke Exposure: No service: No Current occupational status: disabled Cognitive needs: No Hearing needs: No Vision needs: No Meds Allergies Allergy/AdvReac Type Severity Reaction Status Date / Time hydrochlorothiazide Allergy Intermediate restlessnes Verified 01/14/22 08:08 s amlodipine AdvReac Intermediate dizziness, Verified 01/14/22 08:08 tiredness Active Medications: Current Medications Atorvastatin Calcium (Atorvastatin Calcium 40 Mg Tablet) 40 mg PO BEDTIME [facility] Last Admin: 05/13/22 20:23 Dose: 40 mg Furosemide (Furosemide 20 Mg Tablet) 20 mg PO DAILY [facility]; Protocol Last Admin: 05/14/22 09:05 Dose: 20 mg Levothyroxine Sodium (Levothyroxine Sodium 88 Mcg Tablet) 88 mcg PO DAILY@0600 [facility] Last Admin: 05/14/22 05:53 Dose: 88 mcg Lisinopril (Lisinopril 40 Mg Tablet) 40 mg PO DAILY [facility]; Protocol Last Admin: 05/14/22 09:05 Dose: 40 mg Pantoprazole Sodium (Pantoprazole Sodium 40 Mg/10 Ml Vial) 40 mg IVPUSH BID@0630,1630 [facility] Last Admin: 05/14/22 05:53 Dose: 40 mg Pharmacy Consult (Consult Rx Perform Med Rec) 1 each MISCELLANE ONCE PRN PRN Reason: Consult order Sodium Chloride (0.9 % Sodium Chloride Flush 3 Ml Syringe) 3 ml IVFLUSH QSHIFT [facility] Last Admin: 05/14/22 09:05 Dose: 3 ml Home Medications Medication Instructions Recorded Confirmed Last Taken Type bismuth subsalicylate 262 mg/15 mL 524 mg PO Q30M PRN Indigestion 05/13/22 05/13/22 Unknown History oral suspension (Pepto-Bismol) loratadine 10 mg tablet (Claritin) 10 mg PO DAILY PRN Allergy Symptoms 05/13/22 05/13/22 Unknown History naproxen sodium 220 mg tablet 220 mg PO Q12H PRN Pain 05/13/22 05/13/22 Unknown History (Aleve) Physical Exam Vital Signs: Vital Signs: Last Vital Signs Temp 98.1 F 05/14/22 07:07 Pulse 83 05/14/22 07:07 Resp 12 05/14/22 07:07 BP 180/77 H 05/14/22 07:07 Pulse Ox 97 05/14/22 07:07 O2 Del Method 05/14/22 07:07 BMI result Body Mass Index 21.6 Const: General: no acute distress Nutritional Appearance: average body habitus Orientation/consciousness: patient oriented x3 Limitations: no limitations HEENT: Head: Yes normal to inspection Ears: hearing grossly normal bilaterally Eyes: Sclerae: sclerae normal Pupils: Equal, round and reactive pupils present Neck: Neck: Yes normal visual inspection Chest: Chest palpation & inspection: normal inspection of the chest Resp: Effort & Inspection: normal respiratory effort Auscultation: clear to auscultation bilaterally Cardio: Palpation: normal PMI Rate: regular rate Rhythm: regular rhythm Heart sounds: S1 normal heart sound present, S2 normal heart sound present and no murmurs GI: Palpation (GI): Soft to palpation, nontender and No hepatosplenomegaly present Auscultation: normal bowel sounds Rectal Exam - Female: deferred Skin: General skin exam: no rashes or lesions noted Neuro: General: patient oriented x3, gait normal and moves all extremities Cranial nerves: Yes Equal, round and reactive pupils present Extrem: General: Yes pedal edema (1+ pitting edema) Psych: Appearance: grossly normal Mental Status: mental status grossly normal Results Labs CBC & Chem 7: 05/14/22 05:44 05/14/22 05:44 Labs: Short CBC 05/13/22 05/14/22 Range/Units 11:33 05:44 WBC 4.3 L 6.2 (4.8-10.8) X10*3/uL Hgb 4.6 L* 8.8 L D (12.0-16.0) g/dl Hct 18.9 L* 29.3 L D (37.0-47.0) % Plt Count 273 220 (160-400) X10*3/uL BMP 05/13/22 05/14/22 11:34 05:44 Sodium 129 L 133 L Potassium 4.1 2.9 L D Chloride 99 96 Carbon Dioxide 24 25 BUN 9 10 Creatinine 0.69 0.67 Calcium 8.8 8.2 L D Liver Function 05/13/22 Range/Units 11:34 Total Bilirubin 0.6 (0.0-1.0) mg/dL Direct Bilirubin 0.3 (0.0-0.5) mg/dL AST 31 (5-31) U/L ALT 22 (0-31) U/L Alkaline Phosphatase 77 (39-117) U/L Albumin 3.7 (3.5-5.0) g/dL Urine 05/13/22 Range/Units 11:38 Urine Color Yellow Urine Appearance Clear Urine pH 7.0 (5.0-9.0) Ur Specific [place] 1.010 (1.005-1.025) Urine Protein Trace (Neg-Trace) mg/dL Urine Glucose (UA) Negative (Negative) mg/dL Assessment and Plan (1) Severe anemia: Status: Acute Plan 82 year old Frisian-speaking female admitted with 2 week history of worsening shortness of breath and lower extremity edema. Labs in ED showed severe microcytic anemia with hgb 4.6. and hct of 18.9, elevated BNP. She she was transfused 2 units of packed red blood cells overnight. Repeat H&H this morning was 8.8 and 29.3 Iron studies cw iron def anemia Stool occult blood was negative NIGEL is likely due to upper (PUD, erosive esophagitis, UGI AVMs or Dieulafoy) or lower GI source (Colon polyps, AVMs or colon mass) Pt needs further evaluation with EGD and colonoscopy RECOMMENDATIONS: 1. Monitor H & H daily 2. Agree with IV PPI 3. Proceed with EGD and colonoscopy - both procedures and potential complications including bleeding, perforation, reaction to anesthetic and aspiration were reviewed with the patient and her daughter and HCP, Lottie Yu. Consents for both procedures were signed by the daughter and placed in patient's chart. Golytely + Dulcolax prep ordered for the patient. EGD and Colon scheduled on 05/15 at 12 pm. Patient has a hx of mild and last seen by Cardiology in 2018. Pt needs repeat Echo and Cardiology clearance prior to the procedures She denies major pulmonary problems, loud snoring or sleep apnea (admits to disruptive sleep) Denies problems with anesthesia in the past. ADDENDUM: ECHOCARDIOGRAM SHOWED: Conclusions: - 1. Normal LV systolic function with mild LVH with grade 2? ? ? diastolic dysfunction? 2. Mildly dilated left atrium? 3. Moderate to severe aortic stenosis with valve area of about ? 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 4. Normal RV systolic pressure ? 5. No gross pericardial effusion ? Time Spent With Patient Time: Total time managing care of this patient today 33 minutes. Procedures Date of Service Date of Service: 05/14/22
--- NOTE | 2022-05-14 09:41 | MHC.CM.PN ---
Addendum entered by Kusum Sawyer 05/14/22 09:47: [facility] NOT CONTRACTED WITH [facility], REFERRAL SENT TO CONTRACTED AGENCIES. Original Note: [facility] DELIVERED PT LIVES WITH SPOUSE AND ADULT CHILD. USES NO DME OR PRIOR SERVICES. INDEPENDENT AT BASELINE. + HCP COMPLETED AND FILED. + COVID VAX X3. [place] [facility] [place], NO SERVICES ANTICIPATED. DAUGHTER AND PT AGREEABLE TO [facility] IF NEEDED,REFERRAL PLACED. NO SNF. DAUGHTER WILL TRANSPORT HOME. CM WILL CONTINUE TO FOLLOW.
--- NOTE | 2022-05-14 10:01 | P.PNIM_ITS ---
Subjective Subjective Date of Service: 05/14/22 Interval History: cc: sob, le edema interval history:much improved sob and edema resolved Cardiovascular Cardiovascular: Reports no additional cardiovascular complaints Respiratory Respiratory: Reports no additional respiratory complaints Physical Exam Vital Signs: Vital Signs: Last Vital Signs Temp 98.1 F 05/14/22 07:07 Pulse 83 05/14/22 07:07 Resp 12 05/14/22 07:07 BP 180/77 H 05/14/22 07:07 Pulse Ox 97 05/14/22 07:07 O2 Del Method 05/14/22 07:07 BMI result Body Mass Index 21.6 General: AO X 3, no acute distress Resp: CTA bilateral, no accessory muscles used CVS: S1,S2,RRR GI: soft, non tender, non distended Neuro: motor grossly intact, alert Psych: appropriate affect, appropriate insight Objective Data Active Medications Atorvastatin Calcium (Atorvastatin Calcium 40 Mg Tablet) 40 mg PO BEDTIME [facility] Last Admin: 05/13/22 20:23 Dose: 40 mg Documented By: DEBBIE Furosemide (Furosemide 20 Mg Tablet) 20 mg PO DAILY [facility]; Protocol Last Admin: 05/14/22 09:05 Dose: 20 mg Documented By: ABHILASH Levothyroxine Sodium (Levothyroxine Sodium 88 Mcg Tablet) 88 mcg PO DAILY@0600 [facility] Last Admin: 05/14/22 05:53 Dose: 88 mcg Documented By: DEBBIE Lisinopril (Lisinopril 40 Mg Tablet) 40 mg PO DAILY [facility]; Protocol Last Admin: 05/14/22 09:05 Dose: 40 mg Documented By: ABHILASH Pantoprazole Sodium (Pantoprazole Sodium 40 Mg/10 Ml Vial) 40 mg IVPUSH BID@0630,1630 [facility] Last Admin: 05/14/22 05:53 Dose: 40 mg Documented By: DEBBIE Pharmacy Consult (Consult Rx Perform Med Rec) 1 each MISCELLANE ONCE PRN PRN Reason: Consult order Sodium Chloride (0.9 % Sodium Chloride Flush 3 Ml Syringe) 3 ml IVFLUSH QSHIFT [facility] Last Admin: 05/14/22 09:05 Dose: 3 ml Documented By: ABHILASH Labs CBC & Chem 7: 05/14/22 05:44 05/14/22 05:44 Labs: Laboratory Results - last 24 hr 05/13/22 05/13/22 05/13/22 11:24 11:33 11:33 MCV 53.7 L MCH 13.1 L MCHC 24.3 L RDW 23.5 H Plt Count 273 MPV Not Reportable Immature Gran % (Auto) 0.7 H Neut % (Auto) 72.0 Lymph % (Auto) 18.2 L [place] % (Auto) 7.5 Eos % (Auto) 0.2 Baso % (Auto) 1.4 Lymph # (Auto) 0.8 L [place] # (Auto) 0.3 Eos # (Auto) 0.0 Baso # (Auto) 0.1 Abs Immat Gran (auto) 0.03 Absolute Neuts (auto) 3.1 Absolute Nucleated RBC 0.030 H Nucleated RBC % (auto) 0.7 H Anion Gap Estim Creat Clear Calc Estimated GFR Random Glucose Fasting Glucose Calcium Iron TIBC % Saturation Unsat Iron Binding Ferritin Total Bilirubin Direct Bilirubin AST ALT Alkaline Phosphatase Troponin I High Sens 16.9 B-Natriuretic Peptide Total Protein Albumin Lipase Urine Color Urine Appearance Urine pH Ur Specific [place] Urine Protein Urine Glucose (UA) Urine Ketones Urine Blood Urine Nitrite Ur Leukocyte Esterase Urine RBC Urine WBC Ur Squamous Epith Cells Urine Bacteria Hyaline Casts Stool Occult Blood Influenza Type A (PCR) NEGATIVE Influenza Type B (PCR) NEGATIVE RSV RNA Qual (PCR) NEGATIVE SARS-CoV-2 RNA (RT-PCR) NEGATIVE Blood Type Antibody Screen Crossmatch 05/13/22 05/13/22 05/13/22 11:34 11:34 11:38 MCV MCH MCHC RDW Plt Count MPV Immature Gran % (Auto) Neut % (Auto) Lymph % (Auto) [place] % (Auto) Eos % (Auto) Baso % (Auto) Lymph # (Auto) [place] # (Auto) Eos # (Auto) Baso # (Auto) Abs Immat Gran (auto) Absolute Neuts (auto) Absolute Nucleated RBC Nucleated RBC % (auto) Anion Gap 10 L Estim Creat Clear Calc 38.9 Estimated GFR > 60 Random Glucose 108 Fasting Glucose Calcium 8.8 Iron 11 L TIBC 450 H % Saturation 2 L Unsat Iron Binding 439 Ferritin 4 L Total Bilirubin 0.6 Direct Bilirubin 0.3 AST 31 ALT 22 Alkaline Phosphatase 77 Troponin I High Sens B-Natriuretic Peptide 1056 H Total Protein 6.6 Albumin 3.7 Lipase 19 Urine Color Yellow Urine Appearance Clear Urine pH 7.0 Ur Specific [place] 1.010 Urine Protein Trace Urine Glucose (UA) Negative Urine Ketones Negative Urine Blood Negative Urine Nitrite Negative Ur Leukocyte Esterase Trace H Urine RBC 0-2 Urine WBC 0-5 Ur Squamous Epith Cells 0-2 Urine Bacteria None Seen Hyaline Casts 0-2 Stool Occult Blood Influenza Type A (PCR) Influenza Type B (PCR) RSV RNA Qual (PCR) SARS-CoV-2 RNA (RT-PCR) Blood Type Antibody Screen Crossmatch 05/13/22 05/13/22 05/14/22 12:52 12:59 05:44 MCV 61.9 L D MCH 18.6 L MCHC 30.0 L RDW 30.9 H Plt Count 220 MPV Not Reportable Immature Gran % (Auto) Neut % (Auto) Lymph % (Auto) [place] % (Auto) Eos % (Auto) Baso % (Auto) Lymph # (Auto) [place] # (Auto) Eos # (Auto) Baso # (Auto) Abs Immat Gran (auto) Absolute Neuts (auto) Absolute Nucleated RBC 0.060 H Nucleated RBC % (auto) 1.0 H Anion Gap Estim Creat Clear Calc Estimated GFR Random Glucose Fasting Glucose Calcium Iron TIBC % Saturation Unsat Iron Binding Ferritin Total Bilirubin Direct Bilirubin AST ALT Alkaline Phosphatase Troponin I High Sens B-Natriuretic Peptide Total Protein Albumin Lipase Urine Color Urine Appearance Urine pH Ur Specific [place] Urine Protein Urine Glucose (UA) Urine Ketones Urine Blood Urine Nitrite Ur Leukocyte Esterase Urine RBC Urine WBC Ur Squamous Epith Cells Urine Bacteria Hyaline Casts Stool Occult Blood NEGATIVE Influenza Type A (PCR) Influenza Type B (PCR) RSV RNA Qual (PCR) SARS-CoV-2 RNA (RT-PCR) Blood Type O Positive Antibody Screen NEGATIVE Crossmatch See Detail 05/14/22 05:44 MCV MCH MCHC RDW Plt Count MPV Immature Gran % (Auto) Neut % (Auto) Lymph % (Auto) [place] % (Auto) Eos % (Auto) Baso % (Auto) Lymph # (Auto) [place] # (Auto) Eos # (Auto) Baso # (Auto) Abs Immat Gran (auto) Absolute Neuts (auto) Absolute Nucleated RBC Nucleated RBC % (auto) Anion Gap 15 Estim Creat Clear Calc 40.1 Estimated GFR > 60 Random Glucose Fasting Glucose 87 Calcium 8.2 L D Iron TIBC % Saturation Unsat Iron Binding Ferritin Total Bilirubin Direct Bilirubin AST ALT Alkaline Phosphatase Troponin I High Sens B-Natriuretic Peptide Total Protein Albumin Lipase Urine Color Urine Appearance Urine pH Ur Specific [place] Urine Protein Urine Glucose (UA) Urine Ketones Urine Blood Urine Nitrite Ur Leukocyte Esterase Urine RBC Urine WBC Ur Squamous Epith Cells Urine Bacteria Hyaline Casts Stool Occult Blood Influenza Type A (PCR) Influenza Type B (PCR) RSV RNA Qual (PCR) SARS-CoV-2 RNA (RT-PCR) Blood Type Antibody Screen Crossmatch Assessment and Plan (1) Congestive heart failure: Status: Acute Plan 82F PMH chronic hyopnateremia, osteoporosis, HTN, hypothyroid, hld, presented with sob and le edema acute unspecified CHF diuresed well, will change to po lasix 20mg daily, follow up echo severe iron deficiency anemia likely chronic blood loss transfused 2 units prbc 05/13/22 hgb improved from 4.6 to 8.8 ppi hold nsaids gi appreciated, npo after midnight for egd and colonoscopy HTN uncontrolled continue lisinopril for now if after diuresis persistently elevated may need additional meds hypothyroid synthroid hyopnatremia improved to 133 fluid restrict, monitor hypokalemia replace and montior hld statin dvt prophylaxis - mechanical due to suspected gi bleed full code reason for continued hospitalization:severe anemia requiring inpatient work up (egd and colonoscopy tomorrow) Time Spent With Patient Time: Total time managing care of this patient today ____ minutes. Quality Stroke Does the patient have a stroke diagnosis?: No VTE Prior VTE?: No VTE Risk Level:: Medical - moderate - high VTE Device Contraindication: N/A - Device Ordered VTE Drug Contraindication: Treatment Not Tolerated
--- NOTE | 2022-05-14 10:19 | P.CDIC_ITS ---
CDI Concurrent Query Documentation Clarification: PHYSICIAN'S DOCUMENTATION REQUEST Date of Query: 05/14/22 1019 Patient Name: Carly Johnston Admit Date: 05/13/22 Dear Doctor, A review of the medical record indicates additional documentation may be needed. Please review below and update the documentation accordingly. Clinical Indicators: Is there a diagnosis that correlates with the findings below: Risk Factors/Clinical Indicators/Treatments POA/TREAT/RESOLVED/RULE OUT -PMH chronic iron deficiency anemia -Patient being treated for GI bleed -Administrations: 2 units of packed red blood cells receiv ed 05/13 -Labs: Hgb on 05/13 - 4.6 Hct on 05/13 - 18.9 -Per H&P on 05/13: severe iron deficiency anemia likely chronic blood loss Based on the above, could you clarify in the Progress Notes which of the following is the most likely type of anemia you are evaluating, treating, and/or monitoring? * Acute on chronic iron deficiency anemia due to blood loss * Other ? please specify * Unable to determine Use of terms such as suspected, likely, concern for, or probable (associated with a specific diagnosis that is being evaluated, monitored, or treated as if it exists) are acceptable and can be coded in the inpatient setting, when documented at the time of discharge. Thank you, Ade Sauer MS, RN, CCRN Extension: [phone] Please use your independent medical judgment in providing your response. THIS QUERY IS PART OF THE PERMANENT MEDICAL RECORD
[2022-05-14 11:13] VITALS: BP 180/70; PULSE 82; RESP 12; TEMP 36.8; O2SAT 100
[2022-05-14] MEDS: bisacodyL 5 MG TABLET.DR 10 MG PO (12:40)
[2022-05-14] MEDS: PEG 3350/Na Sulf,Bicarb,Cl/KCL 4,000 ML SOLN.RECON 240 ML PO ×8 (14:10→20:59)
[2022-05-14 15:36] VITALS: BP 182/72; PULSE 98; RESP 20; TEMP 37; O2SAT 97
[2022-05-14 19:03] VITALS: BP 154/69; PULSE 80; RESP 16; TEMP 36.9; O2SAT 99
[2022-05-14] MEDS: Atorvastatin Calcium 40 MG TABLET PO (20:03)
--- NOTE | 2022-05-14 22:08 | PC.NURSE ---
Error was made on blood transfusion completed on 05/13 @ 2112. Blood volume transfused was 350 ml not 0ml.
[2022-05-14 23:25] VITALS: BP 179/75; PULSE 82; RESP 18; TEMP 36.5; O2SAT 98
[2022-05-15] VITALS (12 sets, daily range): BP systolic 96–198; BP diastolic 33–84; PULSE 65–89; RESP 12–18; TEMP 36.2–37.2; O2SAT 95–100
[2022-05-15] MEDS: Pantoprazole Sodium 40 MG/10 ML VIAL IVPUSH ×2 (06:01→16:18)
[2022-05-15] MEDS: Levothyroxine Sodium 88 MCG TABLET PO (06:01)
[2022-05-15 06:52] LABS: Hematocrit 28.2 % (37.0-47.0); Hemoglobin 8.2 g/dl (12.0-16.0); Mean Corpuscular HGB Conc 29.1 g/dl (31.0-35.0); Mean Corpuscular Hemoglobin 18.3 pg (27.0-33.0); Mean Corpuscular Volume 63.1 fL (80.0-98.0); NRBC Pct Auto 0.4 /100WBC (0.0-0.2); Platelet Count 221 X10*3/uL (160-400); Red Blood Count 4.47 X10*6/uL (4.20-5.50); Red Cell Distribution Width 31.4 % (11.0-16.0)
[2022-05-15] MEDS: Furosemide 20 MG TABLET PO (08:58)
[2022-05-15] MEDS: lisinopriL 40 MG TABLET PO (08:58)
[2022-05-15 09:52] LABS: Anion Gap 11 (12-20); Blood Urea Nitrogen 5 mg/dL (9-16); Calcium 8.2 mg/dL (8.4-10.2); Carbon Dioxide 26 mmol/L (22-29); Chloride 97 mmol/L (96-108); Creatinine Clr Calc Pharmacy 42.7; Estimated Glomerular Filt Rate > 60; Glucose Fasting 86 mg/dL (60-99); Potassium 3.1 mmol/L (3.3-5.1); Sodium 131 mmol/L (135-145)
--- NOTE | 2022-05-15 09:52 | P.CONCA_ITS ---
History of Present Illness History of Present Illness Date of Service: 05/15/22 Requesting physician: Sonny Edgar Consult reason: congestive heart failure Chief complaint: CHF, anemia Narrative: I was consulted to see Carly in cardiology consultation today for decompensated congestive heart failure. History was obtained with the help of her daughter was at bedside who speaks excellent Slovak and patient was able to converse in Slovak, they declined deaf interpreter. Patient came to the hospital with progressive symptoms of heart failure. As per the daughter about 2 weeks ago she started having increasing leg swelling and a patient's at the leg swelling gradually worsened and went all the way up to the thigh which made it difficult to walk with heavy legs and then also then 3 days ago started noticing increasing symptoms of exertional shortness of breath with started on and then she progressed to have symptoms lying down with shortness of breath. The daughter also notice that she was very pale. She denies any clear bleeding issues or black stools. She came to the hospital was noted to be in heart failure with significant elevated BNP in the 1000 range along with chest x-ray findings with marked anemia with hemoglobin of 4.6. She has been taking Aleve on a daily basis for headaches. She has never had any bleeding issues in the past. As per the daughter she has had difficult control blood pressures since about February. She has never had any prior heart failure. She is to see Cardiology in our office before the pandemic for the murmur. Has not had any follow-up visit since then, she is not able to say why. She denies any palpitations, lightheadedness, syncope. No exertional chest pain. She has never had myocardial infarction or any vascular events in the past. Since transfusion and diuresis she says she feels very well and her shortness of breath is back to baseline. Leg edema is improved significantly. Review of Systems Constitutional: Constitutional: Reports no additional constitutional complaints Eyes: Eyes: Reports no additional eye complaints Cardiovascular: Cardiovascular: Denies chest pain, Reports leg edema, Denies lightheadedness, Denies Loss of Consciousness, Denies palpitations, Reports dyspnea on exertion and Reports orthopnea Respiratory: Respiratory: Reports no additional respiratory complaints and Reports dyspnea on exertion Gastrointestinal: Gastrointestinal: Reports no additional gastrointestinal complaints Genitourinary: Genitourinary: Reports no additional female genitourinary complaints Musculoskeletal: Musculoskeletal: Reports no additional musculoskeletal complaints Integumentary/Breasts: Skin/Breast: Reports system reviewed and no additional complaints, except as docu Neurologic: Reports system reviewed and no additional complaints, except as documented Psychiatric: Psychiatric: Reports no additional psychiatric complaints Endocrine: Endocrine: Reports no additional endocrine complaints and Denies palpitations Hematologic/Lymphatic: Hematologic/Lymphatic: Reports no additional hematologic/lymphatic complaints Allergic/Immunologic: Allergic/Immunologic: Reports no additional allergic/immunologic complaints [facility] Past Medical History Medical History Dyslipidemia Essential hypertension Hyponatremia Hypothyroidism Osteoporosis Family History Family History Father No problems noted. Mother In good health Surgical History Surgical History History of breast biopsy History of colonoscopy Social History Social History Household Members: Spouse and Children Housing: House Do you presently have visiting nurse or other home services: No Alcohol intake: never Patient Tobacco Use Status: Current everyday Tobacco user Tobacco use type: Cigarette Cigarettes Per Day: 3 e-Cigarette/Vaping Use: Never Used Second Hand Smoke Exposure: No service: No Current occupational status: disabled Cognitive needs: No Hearing needs: No Vision needs: No Meds Allergies Allergy/AdvReac Type Severity Reaction Status Date / Time hydrochlorothiazide Allergy Intermediate restlessnes Verified 01/14/22 08:08 s amlodipine AdvReac Intermediate dizziness, Verified 01/14/22 08:08 tiredness Active Medications: Current Medications Atorvastatin Calcium (Atorvastatin Calcium 40 Mg Tablet) 40 mg PO BEDTIME IRENA Last Admin: 05/14/22 20:03 Dose: 40 mg Furosemide (Furosemide 20 Mg Tablet) 20 mg PO DAILY IRENA; Protocol Last Admin: 05/15/22 08:58 Dose: 20 mg Levothyroxine Sodium (Levothyroxine Sodium 88 Mcg Tablet) 88 mcg PO DAILY@0600 IRENA Last Admin: 05/15/22 06:01 Dose: 88 mcg Lisinopril (Lisinopril 40 Mg Tablet) 40 mg PO DAILY IRENA; Protocol Last Admin: 05/15/22 08:58 Dose: 40 mg Pantoprazole Sodium (Pantoprazole Sodium 40 Mg/10 Ml Vial) 40 mg IVPUSH BID@0630,7860 [facility] Last Admin: 05/15/22 06:01 Dose: 40 mg Pharmacy Consult (Consult Rx Perform Med Rec) 1 each MISCELLANE ONCE PRN PRN Reason: Consult order Sodium Chloride (0.9 % Sodium Chloride Flush 3 Ml Syringe) 3 ml IVFLUSH QSHIFT [facility] Last Admin: 05/15/22 08:59 Dose: 3 ml Home Medications Medication Instructions Recorded Confirmed Last Taken Type bismuth subsalicylate 262 mg/15 mL 524 mg PO Q30M PRN Indigestion 05/13/2205/13 Unknown History oral suspension (Pepto-Bismol) loratadine 10 mg tablet (Claritin) 10 mg PO DAILY PRN Allergy Symptoms 05/13/22 05/13/22 Unknown History naproxen sodium 220 mg tablet 220 mg PO Q12H PRN Pain 05/13/22 05/13/22 Unknown History (Aleve) Physical Exam Vital Signs: Vital Signs: Last Vital Signs Temp 97.9 F 05/15/22 07:12 Pulse 86 05/15/22 07:12 Resp 12 05/15/22 07:12 BP 180/70 H 05/15/22 07:12 Pulse Ox 96 05/15/22 07:12 O2 Del Method 05/15/22 07:12 BMI result Body Mass Index 21.6 Const: General: cooperative, comfortable, no acute distress, alert, awake and Physically active Nutritional Appearance: thin Orientation/consciousness: patient oriented x3 Limitations: no limitations HEENT: Head: Yes normocephalic and Yes atraumatic Neck: Neck: Yes trachea midline, Yes supple and Yes no JVD Chest: Chest palpation & inspection: normal inspection of the chest Resp: Effort & Inspection: normal respiratory effort Auscultation: clear to auscultation bilaterally Cardio: Jugular venous distension: no JVD Palpation: normal PMI Rate: regular rate Rhythm: regular rhythm Heart sounds: S1 normal heart sound present, no click, no gallops, Murmur heart sound present systolic late, decrescendo and crescendo and Other heart sounds present (Soft) GI: Auscultation: normal bowel sounds Skin: General skin exam: no rashes or lesions noted Neuro: General: patient oriented x3 and no focal motor deficits Extrem: General: No clubbing, No cyanosis and Yes pedal edema Psych: Appearance: grossly normal Objective Labs and Meds Result diagrams: 05/15/22 06:34 05/14/22 05:44 Lab results: Laboratory Results - last 24 hr 05/13/22 05/15/22 11:33 06:34 WBC 5.0 RBC 4.47 Hgb 8.2 L Hct 28.2 L MCV 63.1 L MCH 18.3 L MCHC 29.1 L RDW 31.4 H Plt Count 221 MPV Not Reportable Absolute Nucleated RBC 0.020 H Nucleated RBC % (auto) 0.4 H Smear Path Review EKG shows normal sinus rhythm with nonspecific ST changes Assessment and Plan (1) Decompensated heart failure: Status: Acute Decompensated heart failure most likely precipitated by her severe anemia in the setting of moderately severe aortic stenosis with hypertensive heart disease as well as uncontrolled blood pressure. Clinically she is doing extremely well at this point time and does not appear to be in any sort of heart failure since transfusion diuresis. Agree with switching to p.o. Lasix at 20 mg daily. I had a detailed discussion about management of heart failure with her and with her daughter. Advised daily weight monitoring and avoidance of salt loading. Additional diuretics as needed for weight gain. Better control blood pressure is necessary and absolutely important. I would add spironolactone 25 mg to her regimen for better blood pressure control as well as for heart failure. Also add Norvasc 2.5 mg to her regimen. Continue lisinopril. Most likely as mention precipitated by anemia continue maintain hematocrit over 30. Would consider iron therapy. Agree with GI workup. She is planned to undergo endoscopy today. With general anesthesia be careful given her aortic stenosis and avoid vasodilating agent and follow-up blood pressure closely during the procedure. She is at intermediate risk for perioperative cardiovascular morbidity mortality. However I think workup for anemia as essential for her. This was discussed with her. Control of blood pressures discussed. Low-salt diet was discussed. Her aortic stenosis at least moderately severe clinically appears to be in the severe range. Will follow closely as outpatient. At some point time in the near future she require consideration for transcatheter aortic valve replacement as long as her medical issues have resolved. Will follow with her as outpatient. Thank you for allowing me to partake Time Spent With Patient Time: Total time managing care of this patient today ____ minutes. Procedures Date of Service Date of Service: 05/15/22
--- NOTE | 2022-05-15 12:44 | P.CONAN_ITS ---
Documented by User: Cayla Garcia MD 05/15/22 13:03 [facility] Past Medical History Medical History Dyslipidemia Essential hypertension Hyponatremia Hypothyroidism Osteoporosis Family History Family History Father No problems noted. Mother In good health Family history of problems with anesthesia: No Surgical History Surgical History History of breast biopsy History of colonoscopy History of Problems with Anesthesia: No Social History Social History Household Members: Spouse and Children Housing: House Do you presently have visiting nurse or other home services: No Alcohol intake: never Patient Tobacco Use Status: Current everyday Tobacco user Tobacco use type: Cigarette Cigarettes Per Day: 2 e-Cigarette/Vaping Use: Never Used Second Hand Smoke Exposure: No service: No Current occupational status: disabled Cognitive needs: No Hearing needs: No Vision needs: No Meds Allergies Allergy/AdvReac Type Severity Reaction Status Date / Time hydrochlorothiazide Allergy Intermediate restlessnes Verified 01/14/22 08:08 s amlodipine AdvReac Intermediate dizziness, Verified 01/14/22 08:08 tiredness Home Medications Medication Instructions Recorded Confirmed Last Taken Type bismuth subsalicylate 262 mg/15 mL 524 mg PO Q30M PRN Indigestion 05/13/22 05/13/22 Unknown History oral suspension (Pepto-Bismol) loratadine 10 mg tablet (Claritin) 10 mg PO DAILY PRN Allergy Symptoms 05/13/22 05/13/22 Unknown History naproxen sodium 220 mg tablet 220 mg PO Q12H PRN Pain 05/13/22 05/13/22 Unknown History (Aleve) Exam Airway Mallampati Class: II TM Dist: >3cm Neck ROM: Full Denture: Upper and Lower Heart: rr murmur of Lungs: cta Assessment and Plan Assessment Anesthesia Assessment: Anesthesia Plan Discussed and Chart Reviewed Final Anesthetic Review Family History of Problems with Anesthesia: No History of Problems with Anesthesia: No NPO: Yes ASA Class: III Final Preanesthetic Review: No Changes in Pt Med Stat, Meds/Allgs Chart Reviewed, Consent Obtained/Reviewed and Anes Risks/Benef Reviewed Patient Risk: Intermediate Procedure Risk: Low Anesthetic Plan Anesthetic Plan: MAC: Disposition: Standard PACU Documented by User: Brittny Sandoval MD [facility] Active Problems Active Problems: All Active Problems (Updated 05/15/22 @ 09:59 by Amanuel Hitchcock MD) Decompensated heart failure (Acute) Congestive heart failure (Acute) Severe anemia (Acute) Hyponatremia (Acute) Osteoporosis (Acute) Hypothyroidism (Acute) Dyslipidemia (Acute) Essential hypertension (Acute) Past Medical History Medical History Dyslipidemia Essential hypertension Hyponatremia Hypothyroidism Osteoporosis Family History Family History Father No problems noted. Mother In good health Surgical History Surgical History History of breast biopsy History of colonoscopy Social History Social History Household Members: Spouse and Children Housing: House Do you presently have visiting nurse or other home services: No Alcohol intake: never Patient Tobacco Use Status: Current everyday Tobacco user Tobacco use type: Cigarette Cigarettes Per Day: 2 e-Cigarette/Vaping Use: Never Used Second Hand Smoke Exposure: No service: No Current occupational status: disabled Cognitive needs: No Hearing needs: No Vision needs: No Meds Allergies Allergy/AdvReac Type Severity Reaction Status Date / Time hydrochlorothiazide Allergy Intermediate restlessnes Verified 01/14/22 08:08 s amlodipine AdvReac Intermediate dizziness, Verified 01/14/22 08:08 tiredness Active Medications: Current Medications Atorvastatin Calcium (Atorvastatin Calcium 40 Mg Tablet) 40 mg PO BEDTIME IRENA Last Admin: 05/14/22 20:03 Dose: 40 mg Furosemide (Furosemide 20 Mg Tablet) 20 mg PO DAILY IRENA; Protocol Last Admin: 05/15/22 08:58 Dose: 20 mg Levothyroxine Sodium (Levothyroxine Sodium 88 Mcg Tablet) 88 mcg PO DAILY@0600 [facility] Last Admin: 05/15/22 06:01 Dose: 88 mcg Lisinopril (Lisinopril 40 Mg Tablet) 40 mg PO DAILY [facility]; Protocol Last Admin: 05/15/22 08:58 Dose: 40 mg Pantoprazole Sodium (Pantoprazole Sodium 40 Mg/10 Ml Vial) 40 mg IVPUSH BID@0630,1630 [facility] Last Admin: 05/15/22 06:01 Dose: 40 mg Pharmacy Consult (Consult Rx Perform Med Rec) 1 each MISCELLANE ONCE PRN PRN Reason: Consult order Sodium Chloride (0.9 % Sodium Chloride Flush 3 Ml Syringe) 3 ml IVFLUSH QSHIFT [facility] Last Admin: 05/15/22 08:59 Dose: 3 ml Home Medications Medication Instructions Recorded Confirmed Last Taken Type bismuth subsalicylate 262 mg/15 mL 524 mg PO Q30M PRN Indigestion 05/13/22 05/13/22 Unknown History oral suspension (Pepto-Bismol) loratadine 10 mg tablet (Claritin) 10 mg PO DAILY PRN Allergy Symptoms 05/13/22 05/13/22 Unknown History naproxen sodium 220 mg tablet 220 mg PO Q12H PRN Pain 05/13/22 05/13/22 Unknown History (Aleve) Exam Exam Date and Time: May 15, 2022 1244 Height,Weight and Vital Signs: Height 4 ft 9 in Weight 45.35 kg Last Vital Signs Temp 98.9 F 05/15/22 12:21 Pulse 89 05/15/22 12:21 Resp 16 05/15/22 12:21 BP 183/53 H 05/15/22 12:21 Pulse Ox 97 05/15/22 12:21 O2 Del Method 05/15/22 12:21 Pertinent Lab Results Pertinent Lab Results: Laboratory Tests 05/13/22 05/13/22 05/13/22 11:24 11:33 11:33 WBC 4.3 L RBC 3.52 L Hgb 4.6 L* Hct 18.9 L* MCV 53.7 L MCH 13.1 L MCHC 24.3 L RDW 23.5 H Plt Count 273 MPV Not Reportable Immature Gran % (Auto) 0.7 H Neut % (Auto) 72.0 Lymph % (Auto) 18.2 L [place] % (Auto) 7.5 Eos % (Auto) 0.2 Baso % (Auto) 1.4 Lymph # (Auto) 0.8 L [place] # (Auto) 0.3 Eos # (Auto) 0.0 Baso # (Auto) 0.1 Abs Immat Gran (auto) 0.03 Absolute Neuts (auto) 3.1 Absolute Nucleated RBC 0.030 H Nucleated RBC % (auto) 0.7 H Smear Path Review Sodium Potassium Chloride Carbon Dioxide Anion Gap BUN Creatinine Estim Creat Clear Calc Estimated GFR Random Glucose Fasting Glucose Calcium Iron TIBC % Saturation Unsat Iron Binding Ferritin Total Bilirubin Direct Bilirubin AST ALT Alkaline Phosphatase Troponin I High Sens 16.9 B-Natriuretic Peptide Total Protein Albumin Lipase Urine Color Urine Appearance Urine pH Ur Specific Rankin Urine Protein Urine Glucose (UA) Urine Ketones Urine Blood Urine Nitrite Ur Leukocyte Esterase Urine RBC Urine WBC Ur Squamous Epith Cells Urine Bacteria Hyaline Casts Stool Occult Blood Influenza Type A (PCR) NEGATIVE Influenza Type B (PCR) NEGATIVE RSV RNA Qual (PCR) NEGATIVE SARS-CoV-2 RNA (RT-PCR) NEGATIVE Blood Type Antibody Screen Crossmatch 05/13/22 05/13/22 05/13/22 11:34 11:34 11:38 WBC RBC Hgb Hct MCV MCH MCHC RDW Plt Count MPV Immature Gran % (Auto) Neut % (Auto) Lymph % (Auto) [place] % (Auto) Eos % (Auto) Baso % (Auto) Lymph # (Auto) [place] # (Auto) Eos # (Auto) Baso # (Auto) Abs Immat Gran (auto) Absolute Neuts (auto) Absolute Nucleated RBC Nucleated RBC % (auto) Smear Path Review Sodium 129 L Potassium 4.1 Chloride 99 Carbon Dioxide 24 Anion Gap 10 L BUN 9 Creatinine 0.69 Estim Creat Clear Calc 38.9 Estimated GFR > 60 Random Glucose 108 Fasting Glucose Calcium 8.8 Iron 11 L TIBC 450 H % Saturation 2 L Unsat Iron Binding 439 Ferritin 4 L Total Bilirubin 0.6 Direct Bilirubin 0.3 AST 31 ALT 22 Alkaline Phosphatase 77 Troponin I High Sens B-Natriuretic Peptide 1056 H Total Protein 6.6 Albumin 3.7 Lipase 19 Urine Color Yellow Urine Appearance Clear Urine pH 7.0 Ur Specific Rankin 1.010 Urine Protein Trace Urine Glucose (UA) Negative Urine Ketones Negative Urine Blood Negative Urine Nitrite Negative Ur Leukocyte Esterase Trace H Urine RBC 0-2 Urine WBC 0-5 Ur Squamous Epith Cells 0-2 Urine Bacteria None Seen Hyaline Casts 0-2 Stool Occult Blood Influenza Type A (PCR) Influenza Type B (PCR) RSV RNA Qual (PCR) SARS-CoV-2 RNA (RT-PCR) Blood Type Antibody Screen Crossmatch 05/13/22 05/13/22 05/14/22 12:52 12:59 05:44 WBC 6.2 RBC 4.73 D Hgb 8.8 L D Hct 29.3 L D MCV 61.9 L D MCH 18.6 L MCHC 30.0 L RDW 30.9 H Plt Count 220 MPV Not Reportable Immature Gran % (Auto) Neut % (Auto) Lymph % (Auto) [place] % (Auto) Eos % (Auto) Baso % (Auto) Lymph # (Auto) [place] # (Auto) Eos # (Auto) Baso # (Auto) Abs Immat Gran (auto) Absolute Neuts (auto) Absolute Nucleated RBC 0.060 H Nucleated RBC % (auto) 1.0 H Smear Path Review Sodium Potassium Chloride Carbon Dioxide Anion Gap BUN Creatinine Estim Creat Clear Calc Estimated GFR Random Glucose Fasting Glucose Calcium Iron TIBC % Saturation Unsat Iron Binding Ferritin Total Bilirubin Direct Bilirubin AST ALT Alkaline Phosphatase Troponin I High Sens B-Natriuretic Peptide Total Protein Albumin Lipase Urine Color Urine Appearance Urine pH Ur Specific Rankin Urine Protein Urine Glucose (UA) Urine Ketones Urine Blood Urine Nitrite Ur Leukocyte Esterase Urine RBC Urine WBC Ur Squamous Epith Cells Urine Bacteria Hyaline Casts Stool Occult Blood NEGATIVE Influenza Type A (PCR) Influenza Type B (PCR) RSV RNA Qual (PCR) SARS-CoV-2 RNA (RT-PCR) Blood Type O Positive Antibody Screen NEGATIVE Crossmatch See Detail 05/14/22 05/15/22 05/15/22 05:44 06:34 06:34 WBC 5.0 RBC 4.47 Hgb 8.2 L Hct 28.2 L MCV 63.1 L MCH 18.3 L MCHC 29.1 L RDW 31.4 H Plt Count 221 MPV Not Reportable Immature Gran % (Auto) Neut % (Auto) Lymph % (Auto) [place] % (Auto) Eos % (Auto) Baso % (Auto) Lymph # (Auto) [place] # (Auto) Eos # (Auto) Baso # (Auto) Abs Immat Gran (auto) Absolute Neuts (auto) Absolute Nucleated RBC 0.020 H Nucleated RBC % (auto) 0.4 H Smear Path Review Sodium 133 L 131 L Potassium 2.9 L D 3.1 L Chloride 96 97 Carbon Dioxide 25 26 Anion Gap 15 11 L BUN 10 5 L Creatinine 0.67 0.63 Estim Creat Clear Calc 40.1 42.7 Estimated GFR > 60 > 60 Random Glucose Fasting Glucose 87 86 Calcium 8.2 L D 8.2 L Iron TIBC % Saturation Unsat Iron Binding Ferritin Total Bilirubin Direct Bilirubin AST ALT Alkaline Phosphatase Troponin I High Sens B-Natriuretic Peptide Total Protein Albumin Lipase Urine Color Urine Appearance Urine pH Ur Specific Rankin Urine Protein Urine Glucose (UA) Urine Ketones Urine Blood Urine Nitrite Ur Leukocyte Esterase Urine RBC Urine WBC Ur Squamous Epith Cells Urine Bacteria Hyaline Casts Stool Occult Blood Influenza Type A (PCR) Influenza Type B (PCR) RSV RNA Qual (PCR) SARS-CoV-2 RNA (RT-PCR) Blood Type Antibody Screen Crossmatch
--- NOTE | 2022-05-15 12:49 | P.BOP_ITS ---
Brief Operative Note Date of Service: 05/15/22 Pre-op diagnosis: severe NIGEL anemia Post-op diagnosis: other ( GASTRIC ULCERS, GASTRITIS, DIVERTICULOSIS, HEMORRHOIDS, MULTIPLE COLONIC ULCERS) Procedure: EGD WITH BIOPSIES COLONOSCOPY TO CECUM WITH BIOPSIES Surgeon: Clara Cheek MD Anesthesia: MAC Was an Hypoid Gear Tester used for this Procedure?: No Hypoid Gear Tester: Yessenia Dodd Estimated blood loss (mL): 0 Pathology: other ( A. small bowel bxs, R/O celiac B. gastric ulcer bxs C. gastric antrum bxs, R/O H. pylori D. gastric body bxs E. right colon bxs, R/O IBD F. left colon bxs, R/O IBD) Condition: stable Disposition: PACU
--- NOTE | 2022-05-15 12:49 | MHC.SHP ---
Pre-Procedural Eval Section A Date of Service: 05/15/22 The patient is an INPATIENT: Yes Changes since office visit: Yes New Medical Problems, Yes Changes in Medication and Yes Patient answered all questions; No Cold of Flu in the past 2 weeks The History & Physical has been completed within 30 days and I have reviewed it.: Yes Section B Chief Complaint: CHF, anemia Allergies: Allergies Allergy/AdvReac Type Severity Reaction Status Date / Time hydrochlorothiazide Allergy Intermediate restlessnes Verified 01/14/22 08:08 s amlodipine AdvReac Intermediate dizziness, Verified 01/14/22 08:08 tiredness Plan I have reviewed the history and physical and performed a pertinent physical examination on my patient. No changes have occurred unless specified. Time Spent With Patient Time: Total time managing care of this patient today ____ minutes.
--- NOTE | 2022-05-15 12:50 | P.OP_ITS ---
Operative Note Operative Note Date of Service: 05/15/22 Narrative: Pre-op diagnosis: severe NIGEL anemia Post-op diagnosis:?other ( GASTRIC ULCERS, GASTRITIS, DIVERTICULOSIS, HEMORRHOIDS, MULTIPLE COLONIC ULCERS) Surgeon: Clara Cheek MD Anesthesia:?MAC FLEXIBLE TRANSORAL UPPER GASTROINTESTINAL ENDOSCOPY WITH BIOPSIES AND COLONOSCOPY TILL CECUM WITH BIOPSIES UPPER ENDOSCOPY Consent: Indications for the procedure and potential complications of bleeding, perforation, reaction to medications and missed diagnosis were discussed with the patient and her daughter and HCP and informed consent was obtained from the daughter.. Instrument: Olympus GIF H 190 mid size upper endoscope Monitoring: Vital signs and clinical assessment, continuous EKG monitoring, Pulse oximetry, Carbon Dioxide monitoring and blood pressure monitoring were done throughout the procedure. Procedure: The patient was placed in the left lateral decubitis position and pre-procedure medications were administered and a bite block was placed. The endoscope was inserted into the mouth and advanced under direct vision to the third part of duodenum. A careful inspection was made as the upper endoscope was withdrawn including a retroflexed examination of the proximal stomach; Findings and interventions are described below. Findings: Larynx: Normal Esophagus: GE junction at 35 cms. No esophagitis or Rosales's. Stomach: Moderate diffuse gastric erythema with nodular appearing mucosa in the gastric body. Biopsies were obtained from the gastric body and antrum. Two chronic appearing 10 to 12 mm clean based non-bleeding ulcers in the antrum - one was biopsied. Grade 2 flap valve on retroflexed examination of the cardia. Duodenum: Normal bulb and descending duodenum. Biopsies obtained from 3rd part of duodenum to check for celiac sprue. Intervention: Biopsies as noted above COLONOSCOPY PROCEDURE NOTE Consent: Indications for the procedure and potential complications of bleeding, perforation, reaction to medications and missed diagnosis were discussed with the patient and informed consent was obtained. Instrument: Olympus PCF H 190 L variable stiffness pediatric colonoscope Monitoring: Vital signs and clinical assessment, intermittent blood pressure monitoring, continuous EKG monitoring, Pulse oximetry and Carbon Dioxide monitoring were done throughout the procedure. Colon withdrawl time was 15 minutes. Procedure: The patient was placed in the left lateral decubitis position and pre-procedure medications were administered. After a digital rectal examination of the ano-rectum, the video colonoscope was inserted into the rectum and advanced through the colon to the cecum. The colonoscope was slowly withdrawn in a retrograde panoramic fashion and the colon mucosa was carefully examined including a retroflexed view of the rectum. Findings and interventions are described below. Procedure Difficulty: There was narrowing with a sharp turn in the sigmoid colon which was navigated with some difficulty Findings: Terminal Ileum: Distal 3-4 cms was examined and appeared normal Cecum: Scattered 5 to 8 mm aphthoid ulcers throughout the colon with normal intervening mucosa - random biopsies were obtained from the right and left colon. Moderate diverticulosis throughout the colon. Ascending Colon: Scattered 5 to 8 mm aphthoid ulcers throughout the colon with normal intervening mucosa - random biopsies were obtained from the right and left colon. Moderate diverticulosis throughout the colon. Transverse Colon: Scattered 5 to 8 mm aphthoid ulcers throughout the colon with normal intervening mucosa - random biopsies were obtained from the right and left colon. Moderate diverticulosis throughout the colon. Descending Colon: Scattered 5 to 8 mm aphthoid ulcers throughout the colon with normal intervening mucosa - random biopsies were obtained from the right and left colon. Moderate diverticulosis throughout the colon. Sigmoid Colon: Scattered 5 to 8 mm aphthoid ulcers throughout the colon with normal intervening mucosa - random biopsies were obtained from the right and left colon. Moderate diverticulosis throughout the colon. Rectum: Normal Ano-rectum: Large internal hemorrhoids Colon preparation: Excellent Impression and Post Procedure Diagnosis: Endoscopy Findings: STOMACH: Moderate diffuse gastric erythema with nodular appearing mucosa in the gastric body. Biopsies were obtained from the gastric body and antrum. Two chronic appearing 10 to 12 mm clean based non-bleeding ulcers in the antrum - one was biopsied. DUODENUM: Normal - biopsied to check for celiac sprue Colonoscopy Findings: No polyps were detected. Scattered 5 to 8 mm aphthoid ulcers throughout the colon with normal intervening mucosa - random biopsies were obtained from the right and left colon - likely d ue to NSAID use versus IBD. Moderate to severe diverticulosis seen in the entire colon (left > right) Moderate hemorrhoids on retroflexed exam. Iron deficiency anemia likely due to chronic slow blood loss from gastric ulcers and aphthoid ulcers seen in the colon (worse in the right colon) Plan: Await pathology results Repeat Colonoscopy not recommended due to advanced age (if colon biopsies are normal). Above findings were reviewed with the patient's daughter and PUD and handout was given in the discharge area. Daughter was advised to stop Naproxen and increase Omeprazole to 20 mg twice daily. Transfuse 1 additonal unit of PRBC today and ok to discharge home tomorrow (if no additional cardiac pruett planned) if hct > 30 %. Pt needs to start oral iron replacement. Patient can schedule a FU appointment in the GI Clinic with Clara Cheek M.D. for fu of anemia in 3 to 4 weeks. ADDENDUM: BIOPSIES SHOWED: A.? Small bowel, biopsy:? Small intestinal mucosa within normal limits; negative for celiac disease. B.? Stomach, ulcer, biopsy:? Antral-type mucosa with moderate chronic active inflammation and regenerative changes consistent with sampling near an ulcer; no Helicobacter organisms seen. C.? Stomach, antrum, biopsy:? Antral-type mucosa with mild chronic, focally active, inflammation; no Helicobacter organisms seen. D.? Stomach, body, biopsy:? Oxyntic mucosa with moderate chronic inactive inflammation; no Helicobacter organisms seen. E.? Colon, right, biopsy:? Mildly active colitis. F.? Colon, left, biopsy:? Focally active colitis with crypt disarray. COMMENT:? There are some features of chronicity in the colon; however, fully- developed chronic injury is not identified.
--- NOTE | 2022-05-15 14:04 | P.PNIM_ITS ---
Subjective Subjective Date of Service: 05/15/22 Interval History: cc: sob, le edema interval history:much improved sob and edema resolved Review of Systems no sob no rectal bleed Physical Exam Vital Signs: Vital Signs: Last Vital Signs Temp 98.9 F 05/15/22 12:21 Pulse 89 05/15/22 12:21 Resp 16 05/15/22 12:21 BP 183/53 H 05/15/22 12:21 Pulse Ox 97 05/15/22 12:21 O2 Del Method 05/15/22 12:21 BMI result Body Mass Index 21.6 Objective Data Active Medications Atorvastatin Calcium (Atorvastatin Calcium 40 Mg Tablet) 40 mg PO BEDTIME [facility] Last Admin: 05/14/22 20:03 Dose: 40 mg Documented By: DEBBIE Furosemide (Furosemide 20 Mg Tablet) 20 mg PO DAILY [facility]; Protocol Last Admin: 05/15/22 08:58 Dose: 20 mg Documented By: CYDNEY Levothyroxine Sodium (Levothyroxine Sodium 88 Mcg Tablet) 88 mcg PO DAILY@0600 [facility] Last Admin: 05/15/22 06:01 Dose: 88 mcg Documented By: DEBBIE Lisinopril (Lisinopril 40 Mg Tablet) 40 mg PO DAILY [facility]; Protocol Last Admin: 05/15/22 08:58 Dose: 40 mg Documented By: CYDNEY Pantoprazole Sodium (Pantoprazole Sodium 40 Mg/10 Ml Vial) 40 mg IVPUSH BID@0630,1630 [facility] Last Admin: 05/15/22 06:01 Dose: 40 mg Documented By: DEBBIE Pharmacy Consult (Consult Rx Perform Med Rec) 1 each MISCELLANE ONCE PRN PRN Reason: Consult order Sodium Chloride (0.9 % Sodium Chloride Flush 3 Ml Syringe) 3 ml IVFLUSH QSHIFT [facility] Last Admin: 05/15/22 08:59 Dose: 3 ml Documented By: CYDNEY Spironolactone (Spironolactone 25 Mg Tablet) 25 mg PO DAILY [facility]; Protocol Labs CBC & Chem 7: 05/15/22 06:34 05/15/22 06:34 Labs: Laboratory Results - last 24 hr 05/13/22 05/15/22 05/15/22 11:33 06:34 06:34 MCV 63.1 L MCH 18.3 L MCHC 29.1 L RDW 31.4 H Plt Count 221 MPV Not Reportable Absolute Nucleated RBC 0.020 H Nucleated RBC % (auto) 0.4 H Smear Path Review Anion Gap 11 L Estim Creat Clear Calc 42.7 Estimated GFR > 60 Fasting Glucose 86 Calcium 8.2 L Assessment and Plan (1) Congestive heart failure: Status: Acute Plan 82F PMH chronic hyopnateremia, osteoporosis, HTN, hypothyroid, hld, presented with sob and le edema acute unspecified CHF diuresed well, will change to po lasix 20mg daily, follow up echo severe iron deficiency anemia likely chronic blood loss transfused 2 units prbc 05/13/22 hgb improved from 4.6 to 8.8 ppi hold nsaids gi appreciated, for egd and colonoscopy today HTN uncontrolled continue lisinopril for now Starting Norvasc 2.5 and Aldactone 25 today 05/15 hypothyroid synthroid hyopnatremia improved to 133 fluid restrict, monitor hypokalemia replace and montior hld statin dvt prophylaxis - mechanical due to suspected gi bleed full code reason for continued hospitalization:severe anemia requiring inpatient work up Time Spent With Patient Time: Total time managing care of this patient today ____ minutes. Quality Stroke Does the patient have a stroke diagnosis?: No VTE Prior VTE?: No VTE Risk Level:: Medical - moderate - high VTE Device Contraindication: N/A - Device Ordered VTE Drug Contraindication: Treatment Not Tolerated
[2022-05-15] MEDS: Spironolactone 25 MG TABLET PO (16:18)
[2022-05-15] MEDS: Atorvastatin Calcium 40 MG TABLET PO (20:19)
[2022-05-15] MEDS: hydrALAZINE HCl 20 MG/ML VIAL 5 MG IVPUSH (23:14)
[2022-05-16 04:00] VITALS: BP 152/60; PULSE 90; RESP 15; TEMP 36.1; O2SAT 96
[2022-05-16] MEDS: Levothyroxine Sodium 88 MCG TABLET PO (05:54)
[2022-05-16] MEDS: Pantoprazole Sodium 40 MG/10 ML VIAL IVPUSH (05:55)
[2022-05-16 08:00] VITALS: BP 160/75; PULSE 85; RESP 18; TEMP 37.1; O2SAT 97
[2022-05-16 09:00] LABS: Hematocrit 28.4 % (37.0-47.0); Hemoglobin 8.2 g/dl (12.0-16.0); Mean Corpuscular HGB Conc 28.9 g/dl (31.0-35.0); Mean Corpuscular Hemoglobin 18.3 pg (27.0-33.0); Mean Corpuscular Volume 63.3 fL (80.0-98.0); Platelet Count 221 X10*3/uL (160-400); Red Blood Count 4.49 X10*6/uL (4.20-5.50); Red Cell Distribution Width 32.7 % (11.0-16.0); White Blood Count 6.7 X10*3/uL (4.8-10.8)
--- NOTE | 2022-05-16 10:07 | PM.DS ---
DS: Providers Provider Date of Service: 05/16/22 Date of admission: 05/13/22 15:18 Primary care physician: Allegra Blum MD Consults: 05/13/22 14:55 Consult to Gastroenterology Routine Consulting Provider: Ines Wynne Reason for consultation: severe anemia, nsaid use 05/14/22 12:06 Consult to Cardiology Routine Consulting Provider: Amanuel Hitchcock Reason for consultation: chf, optimization for EGD/colonosocpy DS: Diagnosis Discharge Diagnosis (1) Congestive heart failure: Status: Acute DS: Summary Hospital Course Hospital Course: Chief Complaint: sob 82F PMH chronic hyopnateremia, osteoporosis, HTN, hypothyroid, hld, presented with sob and le edema. patient reports difficulty with blood pressure control for past 2 months. over past 2 weeks has had progressive lower extremity edema and sob. sob is present at rest, worse on exertion, positive orthopnea. patient has been taking alleve every day for years. reports heartburn symptoms. denies chest pain, black or red stools. in ED noted to have severe microcytic anemia with hgb 4.6. elevated BNP, vascular ocngestion on cxr, not hypoxic. Hospital course: Acute diastolic heart failure treated with IV Lasix. She is improved and now changed to oral Lasix at 20 mg twice daily. The heart failure may have been precipitated by uncontrolled hypertension and profound anemia. She was seen by Cardiology echocardiogram showed ejection fraction of 60% and evidence of diastolic dysfunction. Aldactone 25 mg daily added to her regimen. Symptomatically she is feeling much better today pain Severe iron deficiency anemia, with acute blood loss on chronic blood loss. She had EGD which showed evidence of gastric ulcer and a colonoscopy showed polyps but no bleeding. Gastroenterology recommended the patient no longer takes a naproxen, other forms of NSAID and to take Prilosec 20 mg twice daily. Of note her presenting hemoglobin was 4.6 and has improved to after 2 units of RBC to 2 now, hematocrit was 18 and presently 28 and has been stable for the last 3 days. Additionally was treated with IV iron and will be discharged with oral iron as well HTN uncontrolled, she was continue lisinopril at 40 mg and started on not vaccine and will be increased to 5 mg daily, and additionally Aldactone 25 mg p.o. daily has been added her blood pressure is overall better but may need further adjustment to be done by her primary care physician. hypothyroid continuesynthroid hyopnatremia improved to 133 fluid restrict, monitor hypokalemia, replaced HLD continue Lipitor Time Spent with Patient Time attestation: Total time managing care of this patient today ____ minutes. Discharge coordination time: Greater than 30 minutes Quality: Safe Use of Opioids Does Pt have an Active Cancer Diagnosis on the Problem List?: No Quality: Stroke Does the patient have a stroke diagnosis?: No Physical Exam Vital Signs: Vital Signs: Last Vital Signs Temp 98.8 F 05/16/22 08:00 Pulse 85 05/16/22 08:00 Resp 18 05/16/22 08:00 BP 160/75 H 05/16/22 08:00 Pulse Ox 97 05/16/22 08:00 O2 Del Method 05/16/22 08:00 BMI result Body Mass Index 21.6 DS: Data Data Completed and Pending Pending studies at discharge: Pending at discharge 05/15/22 13:15 Surgical [PTH] Routine Labs on day of discharge: Laboratory Results - last 24 hr 05/16/22 08:34 WBC 6.7 RBC 4.49 Hgb 8.2 L Hct 28.4 L MCV 63.3 L MCH 18.3 L MCHC 28.9 L RDW 32.7 H Plt Count 221 MPV Not Reportable Absolute Nucleated RBC 0.000 Nucleated RBC % (auto) 0.0 Discharge Plan Discharge Anticipated Discharge Date/Time: 05/16/22 10:09 Patient Disposition: Home, Self-Care Discharge Diagnosis: Exacerbation of heart failure, Anemia, gastric Referrals: Allegra Figueroa MD [Primary Care Provider] - 1 Week Discharge Medications: New spironolactone 25 mg Tablet 25 mg PO DAILY Qty: 30 0RF Protocol: Hold for SBP< HOLD for SBP < : 90 furosemide 20 mg Tablet 20 mg PO DAILY Qty: 30 0RF Protocol: Hold for SBP< HOLD for SBP < : 90 amlodipine 5 mg Tablet 5 mg PO DAILY Qty: 30 0RF Protocol: Hold for SBP< HOLD for SBP < : 90 Continued lisinopril 40 mg tablet 40 mg PO DAILY 90 Days Qty: 90 3RF levothyroxine 88 mcg tablet 88 mcg PO DAILY Qty: 90 0RF atorvastatin 40 mg tablet 40 mg PO BEDTIME 90 Days Qty: 90 3RF loratadine [Claritin] 10 mg Tablet 10 mg PO DAILY PRN (Reason: Allergy Symptoms) Discontinued bismuth subsalicylate [Pepto-Bismol] 262 mg/15 mL Suspension 524 mg PO Q30M PRN (Reason: Indigestion) Rx Instructions: do not exceed 8 doses in a 24 hour period naproxen sodium [Aleve] 220 mg Tablet 220 mg PO Q12H PRN (Reason: Pain) No Action omeprazole 20 mg capsule,delayed release(DR/EC) 20 mg PO BID Discharge Orders: Discharge Order (Routine); Ordered 05/16/22 Ordered By: Marcel Miguel Diet: Advance to usual diet Activity on Discharge: As tolerated Stand Alone Forms: Patient Portal Discharge page Other Ambulatory Orders: Basic Metabolic Panel (Routine) Timeframe: [id number] Facility: [facility] - Location: Laboratory Ordered By: Marcel Miguel Care Plan Goals: Recovery from heart failure and anemia. Health Concerns: Heart failure, anemia Plan of Treatment: UA treated for heart failure that is now under control and that will continue to take Lasix along with other medications for this. Limit your salt intake, and watch her weight if you notice an increase of 2 lb over a day call your doctor For the anemia UA noted to have ulcers in the stomach and for this it is recommended that to avoid naproxen, ibuprofen and other [id number] medications unless it is okay with your doctor. Take Prilosec 20 mg twice daily follow-up with Dr. Ballard for polyp biopsy results Follow-up patient primary care doctor within a week, call for appointment. Assessment: As above Discharge Date/Time: 05/16/22 18:38
[2022-05-16] MEDS: Furosemide 20 MG TABLET PO (10:15)
[2022-05-16] MEDS: lisinopriL 40 MG TABLET PO (10:16)
[2022-05-16] MEDS: Spironolactone 25 MG TABLET PO (10:16)
--- NOTE | 2022-05-16 10:17 | HO.POSTANES ---
Post Anesthesia Evaluation Post Anesthesia Evaluation Vital Signs: Vital Signs Temp Pulse Resp BP Pulse Ox O2 Del Method 05/16/22 08:00 98.8 F 85 18 160/75 H 97 Room Air 05/16/22 04:00 96.9 F 90 15 152/60 H 96 Room Air 05/15/22 23:20 97.6 F 79 17 142/54 H 95 Room Air Anesthesia: Monitored Mental Status: Awake Pain Control: Satisfactory Nausea/Vomiting: None Hydration: Adequate Anesthesia-Related Issues: No Anes. Related Issues
--- NOTE | 2022-05-16 10:23 | MHC.CM.PN ---
DP: PT MEDICALLY CLEARED FOR DC HOME, NO SERVICES. RN AWARE. DAUGHTER WILL TRANSPORT HOME.
--- NOTE | 2022-05-16 10:51 | PM.PNCARD ---
Subjective Subjective Date of Service: 05/16/22 <UNIQUE Dee - Last Filed: 05/16/22 11:29> 05/16/22 <Amanuel Hitchcock MD - Last Filed: 05/16/22 12:17> Principal diagnosis: CHF, mod to severe , severe Anemia <UNIQUE Dee - Last Filed: 05/16/22 11:29> Interval history: Seen at 1030. Today she reports she is feeling much better. Breathing is comfortable. No chest pains, palpitation, dizziness, Legs are back to normal. No bleeding reported. Tele SR, PACs rate 70-80s. Am labs pending. Daughter at bedside. Pt speaking Maltese. <UNIQUE Dee - Last Filed: 05/16/22 11:29> Review of Systems Review of Systems as above <UNIQUE Dee - Last Filed: 05/16/22 11:29> Yes all other systems are reviewed and are negative <UNIQUE Dee - Last Filed: 05/16/22 11:29> Physical Exam Vital Signs: Last Vital Signs Temp 98.8 F 05/16/22 08:00 Pulse 85 05/16/22 08:00 Resp 18 05/16/22 08:00 BP 160/75 H 05/16/22 08:00 Pulse Ox 97 05/16/22 08:00 O2 Del Method 05/16/22 08:00 BMI result Body Mass Index 21.6 <UNIQUE Dee - Last Filed: 05/16/22 11:29> Const General: cooperative, comfortable and no acute distress <UNIQUE Dee - Last Filed: 05/16/22 11:29> Orientation/consciousness: patient oriented x3 <UNIQUE Dee - Last Filed: 05/16/22 11:29> Neck Neck: Yes normal visual inspection <UNIQUE Dee - Last Filed: 05/16/22 11:29> Resp Effort & Inspection: normal respiratory effort <UNIQUE Dee - Last Filed: 05/16/22 11:29> Auscultation: clear to auscultation bilaterally, no crackles, no rales, no rhonchi and no wheezes <Cierra Murry NP-C - Last Filed: 05/16/22 11:29> Cardio Jugular venous distension: no JVD <TESS DeeC - Last Filed: 05/16/22 11:29> Rate: regular rate <TESS DeeC - Last Filed: 05/16/22 11:29> Rhythm: regular rhythm <Cierra Murry NP-C - Last Filed: 05/16/22 11:29> Heart sounds: S2 normal heart sound present, no gallops and Murmur heart sound present (3/6 left sternal border) systolic <Cierra Murry NP-C - Last Filed: 05/16/22 11:29> Peripheral pulses: Peripheral pulses 2+ throughout <Cierra Murry NP-C - Last Filed: 05/16/22 11:29> GI Inspection: Yes normal to inspection <Cierra Murry NP-C - Last Filed: 05/16/22 11:29> Neuro General: patient oriented x3 <TESS DeeC - Last Filed: 05/16/22 11:29> Extrem General: Yes normal to inspection <Cierra Murry NP-C - Last Filed: 05/16/22 11:29> Psych Appearance: grossly normal <TESS DeeC - Last Filed: 05/16/22 11:29> Mental Status: mental status grossly normal <TESS DeeC - Last Filed: 05/16/22 11:29> Speech and movement: Normal speech and movement present <Cierra Murry NP-C - Last Filed: 05/16/22 11:29> Objective Labs and Meds Result diagrams: : 05/16/22 08:34 05/16/22 10:14 <Cierra Murry LUCA-C - Last Filed: 05/16/22 11:29> Lab results: Laboratory Results - last 24 hr 05/16/22 08:34 WBC 6.7 RBC 4.49 Hgb 8.2 L Hct 28.4 L MCV 63.3 L MCH 18.3 L MCHC 28.9 L RDW 32.7 H Plt Count 221 MPV Not Reportable Absolute Nucleated RBC 0.000 Nucleated RBC % (auto) 0.0 <UNIQUE Dee - Last Filed: 05/16/22 11:29> Progress Note: A&P Assessment and plan (1) Decompensated heart failure: Status: Acute <UNIQUE Dee - Last Filed: 05/16/22 11:29> Assessment and Plan: Admit with edema, sob. Found to have severe anemia, uncontrolled HTN and acute diastolic HF. Echo showed EF 60-65%, mild LVH, grade 2 diastolic dysfunction, mod to severe . Was diuresed with IV Lasix, Transfused with RBCs and HTN treated with clinical improvement in condition. This am, feeling good , breathing unlabored. No clinical signs of fluid overload. BNP iniitally 1056 and repeat this am 655. She has been started on Lasix 20mg po and Aldactone 25mg daily this admit, which will be continued. BP still somewhat elevated, asymptomatic.Will add low dose Amlodipine 2.5mg daily. Continue Lisinopril. K this am 2.9. Hospitalist aware and will be replacing. Can then be discharged from cardiology perspective. We will arrange the outpt fu. <UNIQUE Dee - Last Filed: 05/16/22 11:29> Admit with edema, sob. Found to have severe anemia, uncontrolled HTN and acute diastolic HF. Echo showed EF 60-65%, mild LVH, grade 2 diastolic dysfunction, mod to severe . Was diuresed with IV Lasix, Transfused with RBCs and HTN treated with clinical improvement in condition. This am, feeling good , breathing unlabored. No clinical signs of fluid overload. BNP iniitally 1056 and repeat this am 655. She has been started on Lasix 20mg po and Aldactone 25mg daily this admit, which will be continued. BP still somewhat elevated, asymptomatic.Will add low dose Amlodipine 2.5mg daily. Continue Lisinopril. K this am 2.9. Hospitalist aware and will be replacing. Can then be discharged from cardiology perspective. We will arrange the outpt fu. Patient seen and examined. Case discussed with Cierra Murry. Patient feeling very well. Underwent endoscopy and noted to have gastric ulcers. Anemia as a reason for her decompensation. Continue treat iron deficiency aggressively. Start on iron replacement therapy orally and if needed should also receive IV iron as outpatient. Continue monitor CBC. Continue Lasix. Continue Aldactone. Follow-up BMP in 1 weeks time. Also add amlodipine 2.5 mg to regimen for better blood pressure control. Will follow-up as outpatient. Patient can be discharged home from our perspective. <Amanuel Hitchcock MD - Last Filed: 05/16/22 12:17> (2) Aortic stenosis: Status: Acute <UNIQUE Dee - Last Filed: 05/16/22 11:29> Assessment and Plan: Hx of . Echo this admit with moderate to severe , mean gradiant 25mmhg, gil 1.1 cm2. Will follow this as outpt. <UNIQUE Dee - Last Filed: 05/16/22 11:29> (3) Severe anemia: Status: Acute <UNIQUE Dee - Last Filed: 05/16/22 11:29> Assessment and Plan: Hgb 4.6 on admit. She has been transfused with RBCs. GI evaluated and endoscopy done showing gastric and colon ulcers. She has been started on Iron supplement and with folllow with GI as outpt. Hgb 8.2 this am. No active bleeding reported. <UNIQUE Dee - Last Filed: 05/16/22 11:29> (4) Essential hypertension: Status: Acute <UNIQUE Dee - Last Filed: 05/16/22 11:29> Assessment and Plan: Elevated this admit. Has been diuresed and PO lasix and aldactone added. Will follow further as outpt <UNIQUE Dee - Last Filed: 05/16/22 11:29> Time Spent With Patient Time: Total time managing care of this patient today _22___ minutes. <UNIQUE Dee - Last Filed: 05/16/22 11:29> Progress Note: Quality Stroke Does the patient have a stroke diagnosis?: No <UNIQUE Dee - Last Filed: 05/16/22 11:29> Procedures Date of Service Date of Service: 05/16/22 <UNIQUE Dee - Last Filed: 05/16/22 11:29>
[2022-05-16 11:19] LABS: Anion Gap 12 (12-20); B Type Natriuretic Peptide 655 pg/mL (<100); Blood Urea Nitrogen 6 mg/dL (9-16); Calcium 8.2 mg/dL (8.4-10.2); Carbon Dioxide 26 mmol/L (22-29); Chloride 96 mmol/L (96-108); Estimated Glomerular Filt Rate > 60; Glucose Random 82 mg/dL (60-115); Potassium 2.9 mmol/L (3.3-5.1); Sodium 131 mmol/L (135-145)
[2022-05-16 11:49] VITALS: BP 159/69; PULSE 98; RESP 19; TEMP 37.3; O2SAT 94
[2022-05-16] MEDS: Potassium Chloride/H20 10 MEQ/100 ML PIGGYBACK 100 MEQ IV (12:10)
[2022-05-16] MEDS: amLODIPine Besylate 2.5 MG TABLET PO (12:10)
[2022-05-16] MEDS: Potassium Chloride Packet 20 MEQ PACKET 40 MEQ PO (12:11)
[2022-05-16 12:55] LABS: Magnesium 1.6 mg/dL (1.6-2.6)
--- NOTE | 2022-05-16 13:17 | HO.PM.IMPN ---
Subjective Subjective Date of Service: 05/16/22 Interval History: cc: sob, le edema interval history:much improved sob and edema resolved Physical Exam Vital Signs: Vital Signs: Last Vital Signs Temp 99.2 F 05/16/22 11:49 Pulse 98 05/16/22 11:49 Resp 19 05/16/22 11:49 BP 159/69 H 05/16/22 11:49 Pulse Ox 94 05/16/22 11:49 O2 Del Method 05/16/22 11:49 BMI result Body Mass Index 21.6 Const: Other: General: AO X 3, no acute distress Resp: CTA bilateral CVS: S1,S2,RRR GI: +BS, NT, no distention Skin: No rash Neuro: motor grossly intact Psych: appropriate affect Objective Data Active Medications Amlodipine Besylate (Amlodipine Besylate 5 Mg Tablet) 5 mg PO DAILY [facility]; Protocol Atorvastatin Calcium (Atorvastatin Calcium 40 Mg Tablet) 40 mg PO BEDTIME [facility] Last Admin: 05/15/22 20:19 Dose: 40 mg Documented By: LINH Furosemide (Furosemide 20 Mg Tablet) 20 mg PO DAILY [facility]; Protocol Last Admin: 05/16/22 10:15 Dose: 20 mg Documented By: LIV Levothyroxine Sodium (Levothyroxine Sodium 88 Mcg Tablet) 88 mcg PO DAILY@0600 [facility] Last Admin: 05/16/22 05:54 Dose: 88 mcg Documented By: BREA Lisinopril (Lisinopril 40 Mg Tablet) 40 mg PO DAILY [facility]; Protocol Last Admin: 05/16/22 10:16 Dose: 40 mg Documented By: LIV Pantoprazole Sodium (Pantoprazole Sodium 40 Mg/10 Ml Vial) 40 mg IVPUSH BID@0630,1630 [facility] Last Admin: 05/16/22 05:55 Dose: 40 mg Documented By: BREA Pharmacy Consult (Consult Rx Perform Med Rec) 1 each MISCELLANE ONCE PRN PRN Reason: Consult order Sodium Chloride (0.9 % Sodium Chloride Flush 3 Ml Syringe) 3 ml IVFLUSH QSHIFT [facility] Last Admin: 05/16/22 10:15 Dose: 3 ml Documented By: LIV Spironolactone (Spironolactone 25 Mg Tablet) 25 mg PO DAILY [facility]; Protocol Last Admin: 05/16/22 10:16 Dose: 25 mg Documented By: LIV Labs CBC & Chem 7: 05/16/22 08:34 05/16/22 10:14 Labs: Laboratory Results - last 24 hr 05/16/22 05/16/22 05/16/22 08:34 10:14 10:14 MCV 63.3 L MCH 18.3 L MCHC 28.9 L RDW 32.7 H Plt Count 221 MPV Not Reportable Absolute Nucleated RBC 0.000 Nucleated RBC % (auto) 0.0 Anion Gap 12 Estim Creat Clear Calc 42.0 Estimated GFR > 60 Random Glucose 82 Calcium 8.2 L Magnesium 1.6 B-Natriuretic Peptide 655 H Assessment and Plan (1) Congestive heart failure: Status: Acute Plan 82F PMH chronic hyopnateremia, osteoporosis, HTN, hypothyroid, hld, presented with sob and le edema acute unspecified CHF diuresed well, will change to po lasix 20mg daily, follow up echo severe iron deficiency anemia likely chronic blood loss transfused 2 units prbc 05/13/22 hgb improved from 4.6 to 8.8 ppi hold nsaids EGD, colonoscopy 05/15--polyp removed, 2 gastric ulcers--gi recommend ppi bid, stopp nsaids HTN uncontrolled continue lisinopril for now Norvasc increase to 5 and Aldactone 25 on 05/15 hypothyroid synthroid hyopnatremia improved to 133 fluid restrict, monitor hypokalemia replace and montior, mag ok hld statin dvt prophylaxis - mechanical due to suspected gi bleed full code reason for continued hospitalization: replacing and monitoring K, likely dc later today Time Spent With Patient Time: Total time managing care of this patient today ____ minutes. Quality Stroke Does the patient have a stroke diagnosis?: No VTE Prior VTE?: No VTE Risk Level:: Medical - moderate - high VTE Device Contraindication: N/A - Device Ordered VTE Drug Contraindication: Treatment Not Tolerated
[2022-05-16 16:42] LABS: Potassium 3.5 mmol/L (3.3-5.1)
== END 2022-05-16 18:38 | disposition home or self-care (01) | DRG 291 ==
LOC: HO.ED 15:01 → HO.EDOVER 15:20 → HO.IMC 16:25
PROVIDERS: Internal Medicine Gastroenterology; Nurse Practitioner Family; Admitting Provider Internal Medicine; Emergency Provider Emergency Medicine; PCP Internal Medicine; Visit Provider Internal Medicine
PROC: 0DB98ZX Excision of Duodenum, Via Natural or Artificial Opening Endoscopic, Diagnostic (ICD-10-PCS; principal; 2022-05-15 13:00)
DX: I11.0 Hypertensive heart disease with heart failure (principal); I50.31 Acute diastolic (congestive) heart failure; K25.4 Chronic or unspecified gastric ulcer with hemorrhage; K57.31 Diverticulosis of large intestine without perforation or abscess with bleeding; E87.1 Hypo-osmolality and hyponatremia; K63.3 Ulcer of intestine; D62 Acute posthemorrhagic anemia; E78.5 Hyperlipidemia, unspecified; E03.9 Hypothyroidism, unspecified; K64.8 Other hemorrhoids; I35.0 Nonrheumatic aortic (valve) stenosis; F17.210 Nicotine dependence, cigarettes, uncomplicated; Z20.822 Contact with and (suspected) exposure to COVID-19; E87.6 Hypokalemia; Z71.6 Tobacco abuse counseling; Z88.8 Allergy status to other drugs, medicaments and biological substances; Z79.890 Hormone replacement therapy; Z79.899 Other long term (current) drug therapy
CPT/HCPCS: 0241U; 36415; 71045; 80048; 80076; 81001; 82272; 82728; 83540; 83690; 83735; 83880; 84132; 84484; 85025; 85027; 86850; 86900; 86901; 86923; 88305; 88342; 93005; 93306; 99285; J1940; P9016

== ENCOUNTER 2022-05-28 10:24 | Outpatient (REF) | payer MEDICARE, SELFPAY ==
[2022-05-28 12:39] LABS: Hematocrit 32.7 % (37.0-47.0); Hemoglobin 9.4 g/dl (12.0-16.0); Mean Corpuscular HGB Conc 28.7 g/dl (31.0-35.0); Mean Corpuscular Hemoglobin 20.5 pg (27.0-33.0); Mean Corpuscular Volume 71.4 fL (80.0-98.0); Mean Platelet Volume 9.1 fL (9.4-12.3); Platelet Count 640 X10*3/uL (160-400); Red Blood Count 4.58 X10*6/uL (4.20-5.50); White Blood Count 9.9 X10*3/uL (4.8-10.8)
[2022-05-28 13:06] LABS: B Type Natriuretic Peptide 216 pg/mL (<100)
[2022-05-28 13:23] LABS: Anion Gap 14 (12-20); Blood Urea Nitrogen 11 mg/dL (9-16); Calcium 9.6 mg/dL (8.4-10.2); Carbon Dioxide 25 mmol/L (22-29); Chloride 100 mmol/L (96-108); Cholesterol 131 mg/dL; Estimated Glomerular Filt Rate > 60; Glucose Random 93 mg/dL (60-115); HDL Cholesterol 38 mg/dL; LDL Cholesterol Calculated 58 mg/dl; Magnesium 1.8 mg/dL (1.6-2.6); Potassium 4.4 mmol/L (3.3-5.1); Sodium 135 mmol/L (135-145); Triglycerides 175 mg/dL
[2022-05-28 13:27] LABS: Thyroid Stimulating Hormone 2.35 uIU/mL (0.32-4.0)
== END 2022-05-28 10:25 | disposition home or self-care (01) ==
LOC: HO.LAB 10:24
PROVIDERS: PCP Internal Medicine; Visit Provider Internal Medicine Cardiovascular Disease
DX: I11.0 Hypertensive heart disease with heart failure (principal); I50.30 Unspecified diastolic (congestive) heart failure; I35.0 Nonrheumatic aortic (valve) stenosis; E78.5 Hyperlipidemia, unspecified; E03.9 Hypothyroidism, unspecified
CPT/HCPCS: 36415; 80048; 80061; 83735; 83880; 84443; 85027; 99212

== ENCOUNTER 2022-07-15 13:55 | Inpatient (IN) | payer MEDICARE, SELFPAY ==
[2022-07-15 14:17] VITALS: BP 122/59; PULSE 99; RESP 16; TEMP 36.8; O2SAT 98; BMI 19.5
--- NOTE | 2022-07-15 14:18 | ED.NAVMDI ---
HPI - Nausea/Vomiting/Diarrhea General Chief complaint: General Medical <JESSICA Chi Last Filed: 07/15/22 14:23> Stated complaint: vomiting diarrhea <JESSICA Chi Last Filed: 07/15/22 14:23> Time Seen by Provider: 07/15/22 15:55 <JESSICA Chi Last Filed: 07/15/22 14:23> Source: patient and family <JESSICA Tierney Last Filed: 07/15/22 19:26> Mode of arrival: ambulatory <JESSICA Tierney Last Filed: 07/15/22 19:26> Limitations: no limitations <JESSICA Tierney Last Filed: 07/15/22 19:26> History of Present Illness HPI Narrative: 82yoF with a PMHx of chronic hyponatremia, osteoporosis, aortic stenosis, CHF, HTN, hypothyroidism and HLD who is [place]ian-speaking presenting to the ER with her daughter at bedside with complaints of generalized lightheadedness/dizziness that started after she had 1 episode of nausea/vomiting and diarrhea this morning around 09:00. She reports she woke up at 06:00 and she felt completely fine was able to do some of her ADLs although started feeling a weird sensation in the back of her neck along with chills until she started having the episode of nausea/vomiting and diarrhea. She reports that this time she feels much better and does not have any lightheadedness/dizziness, sensation that she needs to vomit, nausea, chills or neck pain. She is currently on spironolactone and furosemide. She denies any recent head injury, headaches, change in vision, black or bloody emesis, sore throat, cough, shortness of breath, chest pain, palpitations, paresthesias, dyspnea on exertion, orthopnea, abdominal pain, flank pain, dysuria, hematuria, abnormal vaginal discharge, lower extremity edema or calf tenderness or any other symptoms complaints or concerns at this time. <JESSICA Tierney Last Filed: 07/15/22 19:26> MD elicited complaint: nausea, vomiting, diarrhea and other (Lightheadedness/dizziness) <JESSICA Tierney Last Filed: 07/15/22 19:26> Onset (ago): hour(s) (Around 09:00 prior to arrival) <JESSICA Tierney - Last Filed: 07/15/22 19:26> Description of vomiting: bilious <JESSICA Tierney - Last Filed: 07/15/22 19:26> Description of diarrhea: watery <JESSICA Tierney - Last Filed: 07/15/22 19:26> Associated nausea: Yes <JESSICA Tierney - Last Filed: 07/15/22 19:26> Associated abdominal pain: No <JESSICA Tierney - Last Filed: 07/15/22 19:26> Location of pain: none <JESSICA Tierney - Last Filed: 07/15/22 19:26> Pain consistency: now resolved <JESSICA Tierney - Last Filed: 07/15/22 19:26> Severity: mild <JESSICA Tierney - Last Filed: 07/15/22 19:26> Exacerbating factors: none <JESSICA Tierney - Last Filed: 07/15/22 19:26> Relieving factors: none <JESSICA Tierney - Last Filed: 07/15/22 19:26> Associated symptoms: fever/chills (Lightheadedness) <JESSICA Tierney - Last Filed: 07/15/22 19:26> Related Data Home medications: Previous Rx's Medication Instructions Recorded amlodipine 5 mg tablet 5 mg PO DAILY 90 days #90 tabs 06/10/22 ascorbic acid (vitamin C) 500 mg 500 mg PO DAILY 90 days #90 tabs 06/10/22 tablet atorvastatin 40 mg tablet 40 mg PO BEDTIME 90 days #90 tabs 06/10/22 ferrous sulfate 325 mg (65 mg 325 mg PO DAILY 90 days #90 tabs 06/10/22 iron) tablet furosemide 20 mg tablet 20 mg PO DAILY 90 days #90 tabs 06/10/22 levothyroxine 88 mcg tablet 88 mcg PO DAILY #90 tabs 06/10/22 lisinopril 40 mg tablet 40 mg PO DAILY 90 days #90 tabs 06/10/22 loratadine 10 mg tablet (Claritin) 10 mg PO DAILY PRN Allergy 06/10/22 Symptoms 90 days #90 tabs omeprazole 20 mg capsule,delayed 20 mg PO BID 90 days #180 caps 06/10/22 release spironolactone 25 mg tablet 25 mg PO DAILY 90 days #90 tabs 06/10/22 <JESSICA Chi Last Filed: 07/15/22 14:23> Allergies/Adverse reactions: Allergies Allergy/AdvReac Type Severity Reaction Status Date / Time hydrochlorothiazide Allergy Intermediate restlessnes Verified 06/10/22 08:07 s amlodipine AdvReac Intermediate dizziness, Verified 06/10/22 08:07 tiredness <JESSICA Chi Last Filed: 07/15/22 14:23> Review of Systems Review of Systems: Constitutional : + chills, No Weight loss, No Fever, No Night Sweats, No Fatigue, No Malaise ENT/Mouth : No Hearing loss, No Ear Pain, No Nasal Congestion, No Sinus Pain, No Hoarseness, No sore throat, No Rhinorrhea, No Swallowing Difficulty Eyes: No Eye Pain, No Swelling, No Redness, No Foreign Body, No Discharge, No Vision Changes Cardiovascular : No Chest Pain, No SOB, No Dyspnea on Exertion, No Orthopnea, No Edema, No Palpitations Respiratory : No Cough, No Sputum, No Wheezing, No Smoke Exposure, No Dyspnea Gastrointestinal : + Nausea, + Vomiting, + Diarrhea, No Constipation, No abdominal Pain, No Hematochezia, No Melena Genitourinary : no irregular bleeding, No Dysuria, No Urinary Frequency, No Hematuria, No Urinary Incontinence, No Urgency, No Flank Pain, No Urinary Flow Changes, No Hesitancy Musculoskeletal : No joint pain, No Myalgias, No Joint Swelling Skin : No Skin Lesions, No rash Neuro : No Weakness, No Numbness, No Paresthesias, No Loss of Consciousness, + Dizziness, No Headache Psych : No Anxiety/Panic, No Depression, No SI/HI/AH/VH, No Social Issues, Heme/Lymph: No Bruising, No Bleeding,No Lymphadenopathy Endocrine : No Polyuria, No Polydipsia, No Temperature Intolerance <JESSICA Tierney Last Filed: 07/15/22 19:26> Yes all other systems are reviewed and are negative <JESSICA Tierney Last Filed: 07/15/22 19:26> Gastrointestinal: Gastrointestinal: Reports nausea <JESSICA Tierney Last Filed: 07/15/22 19:26> [facility] Past Medical History Attestation statement: The following information was validated with the patient. <JESSICA Tierney - Last Filed: 07/15/22 19:26> Source: old records reviewed, obtained from family and nursing notes reviewed <JESSICA Tierney - Last Filed: 07/15/22 19:26> Medical History: Medical History Aortic stenosis Congestive heart failure Dyslipidemia Essential hypertension Hyponatremia Hypothyroidism Osteoporosis <JESSICA Chi - Last Filed: 07/15/22 14:23> Surgical History: Surgical History History of breast biopsy History of colonoscopy <JESSICA Chi - Last Filed: 07/15/22 14:23> Family History Family History: Family History Father No problems noted. Mother In good health <JESSICA Chi - Last Filed: 07/15/22 14:23> Social History Social History: Social History Household Members: Spouse and Children Housing: House Do you presently have visiting nurse or other home services: No Alcohol intake: never Patient Tobacco Use Status: Former Tobacco user Tobacco use type: Cigarette Cigarettes Per Day: 2 e-Cigarette/Vaping Use: Never Used Second Hand Smoke Exposure: No Advance Directives: Yes Advance Directives on File: Yes Advance Directives Date on File: 05/15/22 service: No Current occupational status: disabled Cognitive needs: No Hearing needs: No Vision needs: No <JESSICA Chi - Last Filed: 07/15/22 14:23> Physical Exam Vital Signs: Vital Signs: Last Vital Signs Temp 98.3 F 07/15/22 15:32 Pulse 78 07/15/22 16:09 Resp 17 07/15/22 16:09 BP 141/44 H 07/15/22 15:32 Pulse Ox 95 07/15/22 15:32 O2 Del Method 07/15/22 15:32 BMI result Body Mass Index 19.5 <JESSICA Chi - Last Filed: 07/15/22 14:23> Vital Signs: Last Vital Signs Temp 98.3 F 07/15/22 15:32 Pulse 78 07/15/22 16:09 Resp 17 07/15/22 16:09 BP 141/44 H 07/15/22 15:32 Pulse Ox 95 07/15/22 15:32 O2 Del Method 07/15/22 15:32 BMI result Body Mass Index 19.5 Vital signs have been reviewed as normal and appeared to be correct. Blood pressure 122/59. Heart rate normal. Respiration rate normal. Temperature normal. Oxygen saturation normal. <JESSICA Tierney - Last Filed: 07/15/22 19:26> Appearance: Alert. Oriented X3. No acute distress. Head: Normal external exam. Normocephalic. Atraumatic. Able to rotate head bilaterally. Eyes: PERRLA. EOMI. No nystagmus noted. Conjunctiva and sclera normal. Eyelids normal. Corneal reflex normal. ENT: EAC normal. TM's Normal. Hearing normal. Pharynx normal. Uvula midline. tongue midline. Moist mucous membranes. No trismus noted. No drooling noted. No muffled voice noted. No nystagmus noted. Neck: Normal inspection. Neck supple. FROM. No adenopathy. Trachea midline. Thyroid Normal. No meningeal signs. No neck mass noted. CVS: Normal heart rate and rhythm. Heart sound normal. No murmurs noted. Pulses normal throughout. Respiratory: No respiratory distress. Painless inspiration. Breath sounds normal. No wheezes/rales/rhonchi noted. Chest nontender. No accessory muscle usage noted or decreased air movement noted. Abdomen: Soft and nontender. Bowel sounds normal in all 4 quadrants. No distention noted. No organomegaly noted. No visible injury noted. Back: No CVA tenderness. Full range of motion noted. Skin: Skin warm and dry. Normal skin color. Normal skin turgor. No rashes/lesions/lacerations noted. Extremities: No lower extremity edema. Extremities exhibit normal range of motion. Extremities nontender. Able to shrug shoulders bilaterally and keep up against resistance. Neuro: Oriented X 3. No motor deficit. No sensory deficit. Reflexes normal. Moving all extremities. No focal motor deficits. Cranial nerves II-XI intact bilaterally. Facial strength normal. Normal cognition. Speech normal. Gait normal. Strength 5/5 throughout. No pronator drift. No tremor noted. No fasciculations noted. No rigidity noted. Muscle tone normal throughout. No asterixis noted. Fcbirp-pw-dnpb test normal. Heel to valiente test normal. Tandem gait normal. Does not sway with eyes open. Romberg test negative. Rapid alternating movement upper extremity normal. Rapid alternating movement lower extremity normal. Hand drop from overhead Misses face. NIHSS score 0. <JESSICA Tierney - Last Filed: 07/15/22 19:26> Course Course Course Narrative: RME - 82 yo F, with a hx of hypertension, aortic stenosis, CHF, hypothyroidism, dyslipidemia, iron deficiency anemia, and colonic ulcer, presenting today with complaints of dizziness, nausea, diarrhea (1 episode) and vomiting (1 episode) since 09:00AM this morning. Admits to having left sided abdominal pain this morning, improved after vomiting/diarrhea. She reports that her stool is black, but reports that she is on iron. No known sick contacts. Decreased appetite. Denies chest pain, shortness of breath. +neck pain. VSS in triage. Stable to return to waiting room until treatment room becomes available. Plan: Labs and EKG. <JESSICA Chi - Last Filed: 07/15/22 14:23> Reevaluation(s) Reevaluation #1: 82yoF with a PMHx of chronic hyponatremia, osteoporosis, aortic stenosis, CHF, HTN, hypothyroidism and HLD who is [place]ian-speaking presenting to the ER with her daughter at bedside with complaints of generalized lightheadedness/dizziness that started after she had 1 episode of nausea/vomiting and diarrhea this morning around 09:00. She reports she woke up at 06:00 and she felt completely fine was able to do some of her ADLs although started feeling a weird sensation in the back of her neck along with chills until she started having the episode of nausea/vomiting and diarrhea. She reports that this time she feels much better and does not have any lightheadedness/dizziness, sensation that she needs to vomit, nausea, chills or neck pain. Patient is currently on furosemide and spironolactone. Labs were obtained while the patient was in waiting room - anemia with H&H 10.1/30.9 which is similar compared to prior - sodium at 124 patient hyponatremic baseline appears to be 130 - potassium 6.2 - carbon dioxide 19 - BUN 33 baseline 11 - creatinine 1.3 baseline creatinine 0.86 - GFR 38 baseline greater than 60 - patient negative for COVID and influenza Otherwise all other labs are within normal limits EKG normal sinus rhythm with ventricular rate of [address] abnormalities no acute ischemic change are noted. Similar compared to prior EKG 05/13/2022. Therefore I gave the patient 10 mg of Lokelma, an hour long breathing treatment 1 L of IV fluid and repeat sodium is now 127 repeat potassium 5.5. Estimated GFR now 43 Although due to patient having worsening hyponatremia and hyperkalemia and LUCILLE and being on furosemide and spironolactone patient will need to be admitted for further evaluation treatment. Patient with daughter at bedside understand agree this plan. <JESSICA Tierney - Last Filed: 07/15/22 19:26> Time: 19:08 <JESSICA Tierney - Last Filed: 07/15/22 19:26> Medications Administered Discontinued Medications Generic Name Dose Route Start Last Admin Trade Name Freq PRN Reason Stop Dose Admin Albuterol Sulfate 10 mg 07/15/22 15:57 07/15/22 16:06 Albuterol Sulfate (0.083%) 2.5 Mg/3 Ml Vial.Neb INHALE 07/15/22 15:58 10 mg ONCE ONE Administration Sodium Chloride 1,000 mls @ 999 mls/hr 07/15/22 16:00 07/15/22 16:32 Ns IVCONT 07/15/22 17:00 999 mls/hr .Q1H1M IRENA Administration Sodium Zirconium Cyclosilicate 10 gm 07/15/22 15:57 07/15/22 16:20 Sodium Zirconium Cyclosilicate 10 Gm Powd.Pack PO 07/15/22 15:58 10 gm ONCE ONE Administration <JESSICA Chi - Last Filed: 07/15/22 14:23> Medications Administered Discontinued Medications Generic Name Dose Route Start Last Admin Trade Name Freq PRN Reason Stop Dose Admin Albuterol Sulfate 10 mg 07/15/22 15:57 07/15/22 16:06 Albuterol Sulfate (0.083%) 2.5 Mg/3 Ml Vial.Neb INHALE 07/15/22 15:58 10 mg ONCE ONE Administration Sodium Chloride 1,000 mls @ 999 mls/hr 07/15/22 16:00 07/15/22 16:32 Ns IVCONT 07/15/22 17:00 999 mls/hr .Q1H1M IRENA Administration Sodium Zirconium Cyclosilicate 10 gm 07/15/22 15:57 07/15/22 16:20 Sodium Zirconium Cyclosilicate 10 Gm Powd.Pack PO 07/15/22 15:58 10 gm ONCE ONE Administration <JESSICA Tierney - Last Filed: 07/15/22 19:26> Medical Decision Making Admission/Observation Consideration of admission/observation: Escalation of care including admission/observation considered (Patient will need to be admitted or placed on observation due to hyponatremia, hyperkalemia and LUCILLE) <JESSICA Tierney - Last Filed: 07/15/22 19:26> Consult Healthcare Provider Management of the patient was discussed with: Hospitalist <JESSICA Tierney - Last Filed: 07/15/22 19:26> Lab Data MDM Lab Attestation statement: I reviewed the patient's lab results. <JESSICA Tierney - Last Filed: 07/15/22 19:26> Result Diagrams: 07/15/22 15:01 07/15/22 17:23 <JESSICA Chi - Last Filed: 07/15/22 14:23> Labs: Lab Results 07/15/22 07/15/22 07/15/22 Range/Units 15:01 15:01 15:01 WBC 7.8 (4.8-10.8) X10*3/uL RBC 3.90 L (4.20-5.50) X10*6/uL Hgb 10.1 L (12.0-16.0) g/dl Hct 30.9 L (37.0-47.0) % MCV 79.2 L (80.0-98.0) fL MCH 25.9 L (27.0-33.0) pg MCHC 32.7 (31.0-35.0) g/dl RDW 23.5 H (11.0-16.0) % Plt Count 327 D (160-400) X10*3/uL MPV 8.6 L (9.4-12.3) fL Immature Gran % (Auto) 0.4 (0.0-0.4) % Neut % (Auto) 81.5 H (45-73) % Lymph % (Auto) 13.8 L (20-40) % [place] % (Auto) 3.7 (2-11) % Eos % (Auto) 0.1 (0-4) % Baso % (Auto) 0.5 (0-2) % Lymph # (Auto) 1.1 L (1.2-4.9) X10*3/uL [place] # (Auto) 0.3 (0.1-1.2) X10*3/uL Eos # (Auto) 0.0 (0.0-0.4) X10*3/uL Baso # (Auto) 0.0 (0.0-0.2) X10*3/uL Abs Immat Gran (auto) 0.03 (0.00-0.03) X10*3/uL Absolute Neuts (auto) 6.3 (2.0-8.3) x10*3/uL Absolute Nucleated RBC 0.000 (0.0-0.012) X10*3/uL Nucleated RBC % (auto) 0.0 (0.0-0.2) /100WBC Sodium 124 L (135-145) mmol/L Potassium 6.2 H* D (3.3-5.1) mmol/L Chloride 99 (96-108) mmol/L Carbon Dioxide 19 L (22-29) mmol/L Anion Gap 12 (12-20) BUN 33 H (9-16) mg/dL Creatinine 1.34 (0.5-1.4) mg/dL Estim Creat Clear Calc 20.1 Estimated GFR 38 Random Glucose 123 H (60-115) mg/dL Calcium 9.8 (8.4-10.2) mg/dL Magnesium 1.8 (1.6-2.6) mg/dL Total Bilirubin 0.4 (0.0-1.0) mg/dL Direct Bilirubin < 0.2 (0.0-0.5) mg/dL AST 26 (5-31) U/L ALT 21 (0-31) U/L Alkaline Phosphatase 76 (39-117) U/L Total Protein 8.0 (6.5-8.0) g/dL Albumin 4.4 (3.5-5.0) g/dL Lipase 40 (8-78) U/L COVID-19 ([facility]) (Negative) COVID-19 Clin Com Influenza Type A ([facility]) Negative (Negative) Influenza Type B ([facility]CA) Negative (Negative) Influenza A & B Note See Note 07/15/22 07/15/22 Range/Units 15:01 17:23 WBC (4.8-10.8) X10*3/uL RBC (4.20-5.50) X10*6/uL Hgb (12.0-16.0) g/dl Hct (37.0-47.0) % MCV (80.0-98.0) fL MCH (27.0-33.0) pg MCHC (31.0-35.0) g/dl RDW (11.0-16.0) % Plt Count (160-400) X10*3/uL MPV (9.4-12.3) fL Immature Gran % (Auto) (0.0-0.4) % Neut % (Auto) (45-73) % Lymph % (Auto) (20-40) % [place] % (Auto) (2-11) % Eos % (Auto) (0-4) % Baso % (Auto) (0-2) % Lymph # (Auto) (1.2-4.9) X10*3/uL [place] # (Auto) (0.1-1.2) X10*3/uL Eos # (Auto) (0.0-0.4) X10*3/uL Baso # (Auto) (0.0-0.2) X10*3/uL Abs Immat Gran (auto) (0.00-0.03) X10*3/uL Absolute Neuts (auto) (2.0-8.3) x10*3/uL Absolute Nucleated RBC (0.0-0.012) X10*3/uL Nucleated RBC % (auto) (0.0-0.2) /100WBC Sodium 127 L (135-145) mmol/L Potassium 5.5 H (3.3-5.1) mmol/L Chloride 101 (96-108) mmol/L Carbon Dioxide 17 L (22-29) mmol/L Anion Gap 15 (12-20) BUN 31 H (9-16) mg/dL Creatinine 1.20 (0.5-1.4) mg/dL Estim Creat Clear Calc 22.4 Estimated GFR 43 Random Glucose 135 H (60-115) mg/dL Calcium 9.2 D (8.4-10.2) mg/dL Magnesium (1.6-2.6) mg/dL Total Bilirubin (0.0-1.0) mg/dL Direct Bilirubin (0.0-0.5) mg/dL AST (5-31) U/L ALT (0-31) U/L Alkaline Phosphatase (39-117) U/L Total Protein (6.5-8.0) g/dL Albumin (3.5-5.0) g/dL Lipase (8-78) U/L COVID-19 ([facility]) Negative (Negative) COVID-19 Clin Com See Note Influenza Type A ([facility]) (Negative) Influenza Type B ([facility]CA) (Negative) Influenza A & B Note <JESSICA Chi - Last Filed: 07/15/22 14:23> Lab Results 07/15/22 07/15/22 07/15/22 Range/Units 15:01 15:01 15:01 WBC 7.8 (4.8-10.8) X10*3/uL RBC 3.90 L (4.20-5.50) X10*6/uL Hgb 10.1 L (12.0-16.0) g/dl Hct 30.9 L (37.0-47.0) % MCV 79.2 L (80.0-98.0) fL MCH 25.9 L (27.0-33.0) pg MCHC 32.7 (31.0-35.0) g/dl RDW 23.5 H (11.0-16.0) % Plt Count 327 D (160-400) X10*3/uL MPV 8.6 L (9.4-12.3) fL Immature Gran % (Auto) 0.4 (0.0-0.4) % Neut % (Auto) 81.5 H (45-73) % Lymph % (Auto) 13.8 L (20-40) % [place] % (Auto) 3.7 (2-11) % Eos % (Auto) 0.1 (0-4) % Baso % (Auto) 0.5 (0-2) % Lymph # (Auto) 1.1 L (1.2-4.9) X10*3/uL [place] # (Auto) 0.3 (0.1-1.2) X10*3/uL Eos # (Auto) 0.0 (0.0-0.4) X10*3/uL Baso # (Auto) 0.0 (0.0-0.2) X10*3/uL Abs Immat Gran (auto) 0.03 (0.00-0.03) X10*3/uL Absolute Neuts (auto) 6.3 (2.0-8.3) x10*3/uL Absolute Nucleated RBC 0.000 (0.0-0.012) X10*3/uL Nucleated RBC % (auto) 0.0 (0.0-0.2) /100WBC Sodium 124 L (135-145) mmol/L Potassium 6.2 H* D (3.3-5.1) mmol/L Chloride 99 (96-108) mmol/L Carbon Dioxide 19 L (22-29) mmol/L Anion Gap 12 (12-20) BUN 33 H (9-16) mg/dL Creatinine 1.34 (0.5-1.4) mg/dL Estim Creat Clear Calc 20.1 Estimated GFR 38 Random Glucose 123 H (60-115) mg/dL Calcium 9.8 (8.4-10.2) mg/dL Magnesium 1.8 (1.6-2.6) mg/dL Total Bilirubin 0.4 (0.0-1.0) mg/dL Direct Bilirubin < 0.2 (0.0-0.5) mg/dL AST 26 (5-31) U/L ALT 21 (0-31) U/L Alkaline Phosphatase 76 (39-117) U/L Total Protein 8.0 (6.5-8.0) g/dL Albumin 4.4 (3.5-5.0) g/dL Lipase 40 (8-78) U/L COVID-19 ([facility]) (Negative) COVID-19 Clin Com Influenza Type A ([facility]CA) Negative (Negative) Influenza Type B ([facility]CA) Negative (Negative) Influenza A & B Note See Note 07/15/22 07/15/22 Range/Units 15:01 17:23 WBC (4.8-10.8) X10*3/uL RBC (4.20-5.50) X10*6/uL Hgb (12.0-16.0) g/dl Hct (37.0-47.0) % MCV (80.0-98.0) fL MCH (27.0-33.0) pg MCHC (31.0-35.0) g/dl RDW (11.0-16.0) % Plt Count (160-400) X10*3/uL MPV (9.4-12.3) fL Immature Gran % (Auto) (0.0-0.4) % Neut % (Auto) (45-73) % Lymph % (Auto) (20-40) % [place] % (Auto) (2-11) % Eos % (Auto) (0-4) % Baso % (Auto) (0-2) % Lymph # (Auto) (1.2-4.9) X10*3/uL [place] # (Auto) (0.1-1.2) X10*3/uL Eos # (Auto) (0.0-0.4) X10*3/uL Baso # (Auto) (0.0-0.2) X10*3/uL Abs Immat Gran (auto) (0.00-0.03) X10*3/uL Absolute Neuts (auto) (2.0-8.3) x10*3/uL Absolute Nucleated RBC (0.0-0.012) X10*3/uL Nucleated RBC % (auto) (0.0-0.2) /100WBC Sodium 127 L (135-145) mmol/L Potassium 5.5 H (3.3-5.1) mmol/L Chloride 101 (96-108) mmol/L Carbon Dioxide 17 L (22-29) mmol/L Anion Gap 15 (12-20) BUN 31 H (9-16) mg/dL Creatinine 1.20 (0.5-1.4) mg/dL Estim Creat Clear Calc 22.4 Estimated GFR 43 Random Glucose 135 H (60-115) mg/dL Calcium 9.2 D (8.4-10.2) mg/dL Magnesium (1.6-2.6) mg/dL Total Bilirubin (0.0-1.0) mg/dL Direct Bilirubin (0.0-0.5) mg/dL AST (5-31) U/L ALT (0-31) U/L Alkaline Phosphatase (39-117) U/L Total Protein (6.5-8.0) g/dL Albumin (3.5-5.0) g/dL Lipase (8-78) U/L COVID-19 ([facility]) Negative (Negative) COVID-19 Clin Com See Note Influenza Type A ([facility]) (Negative) Influenza Type B ([facility]CA) (Negative) Influenza A & B Note <JESSICA Tierney - Last Filed: 07/15/22 19:26> Independent Interpretation I performed an independent interpretation of an: EKG (EKG normal sinus rhythm with ventricular rate of [address] abnormalities no acute ischemic change are noted. Similar compared to prior EKG 05/13/2022.) <JESSICA Tierney - Last Filed: 07/15/22 19:26> Independent Historian Clinical information obtained from an independent historian. History obtained from or confirmed by: Other (Daughter at bedside) <JESSICA Tierney - Last Filed: 07/15/22 19:26> External Record Review External record reviewed: Inpatient record, Office record, Outpatient record, Prior outpatient labs, Prior outpatient radiology, Primary care record and Outside ED record <JESSICA Tierney - Last Filed: 07/15/22 19:26> I reviewed all the patient's labs imaging and reports that is in our system. <JESSICA Tierney Last Filed: 07/15/22 19:26> Chronic Conditions Patient?s care impacted by: Hypertension and Other (CHF, hyperlipidemia, hypothyroidism) <JESSICA Tierney Last Filed: 07/15/22 19:26> Critical Care Time Critical Care Time Critical Care Time: Yes <JESSICA Tierney Last Filed: 07/15/22 19:26> Total Critical Care Time: 60 <JESSICA Tierney Last Filed: 07/15/22 19:26> Attestation: I personally attest to this time spent taking care of the patient <JESSICA Tierney - Last Filed: 07/15/22 19:26> Discharge Plan Discharge Clinical Impression: Hyponatremia, Acute hyperkalemia, LUCILLE (acute kidney injury) <JESSICA Chi - Last Filed: 07/15/22 14:23> Patient Disposition: Admitted As Inpatient <JESSICA Chi - Last Filed: 07/15/22 14:23>
--- NOTE | 2022-07-15 14:22 | ECG_ITS ---
Test Reason : DIZZINESS Blood Pressure : / mmHG Vent. Rate : 081 BPM Atrial Rate : 081 BPM P-R Int : 124 ms QRS Dur : 068 ms QT Int : 338 ms P-R-T Axes : 071 047 070 degrees QTc Int : 392 ms Normal sinus rhythm Septal infarct , age undetermined Abnormal ECG When compared with ECG of 13-MAY-2022 11:42, No significant change was found Referred By: Yessenia Oliva Electronically Signed By:FABRICIO RECIO MD
[2022-07-15 15:06] LABS: MANUAL DIFF FLAG NO
[2022-07-15 15:10] LABS: Basophils Percent Auto 0.5 % (0-2); Eosinophils Percent Auto 0.1 % (0-4); Hematocrit 30.9 % (37.0-47.0); Hemoglobin 10.1 g/dl (12.0-16.0); Imm Gran Abs Auto 0.03 X10*3/uL (0.00-0.03); Imm Gran Pct Auto 0.4 % (0.0-0.4); Lymphocytes Absolute Auto 1.1 X10*3/uL (1.2-4.9); Lymphocytes Percent Auto 13.8 % (20-40); Mean Corpuscular HGB Conc 32.7 g/dl (31.0-35.0); Mean Corpuscular Hemoglobin 25.9 pg (27.0-33.0); Mean Corpuscular Volume 79.2 fL (80.0-98.0); Mean Platelet Volume 8.6 fL (9.4-12.3); Monocytes Absolute Auto 0.3 X10*3/uL (0.1-1.2); Monocytes Percent Auto 3.7 % (2-11); Neutrophils Absolute Auto 6.3 x10*3/uL (2.0-8.3); Neutrophils Percent Auto 81.5 % (45-73); Platelet Count 327 X10*3/uL (160-400); Red Cell Distribution Width 23.5 % (11.0-16.0); White Blood Count 7.8 X10*3/uL (4.8-10.8)
[2022-07-15 15:23] LABS: COVID-19 Test Negative (Negative); IDNOW Serial# 6674DD1D
[2022-07-15 15:29] LABS: IDNOW Serial# 16C4AD1C; Influenza A Negative (Negative); Influenza B2 Negative (Negative)
[2022-07-15 15:32] VITALS: BP 141/44; PULSE 78; RESP 17; TEMP 36.8; O2SAT 95
[2022-07-15 15:38] LABS: Alanine Aminotransferase 21 U/L (0-31); Albumin Level 4.4 g/dL (3.5-5.0); Alkaline Phosphatase 76 U/L (39-117); Anion Gap 12 (12-20); Aspartate Amino Transferase 26 U/L (5-31); Bilirubin Direct < 0.2 mg/dL (0.0-0.5); Bilirubin Total 0.4 mg/dL (0.0-1.0); Blood Urea Nitrogen 33 mg/dL (9-16); Calcium 9.8 mg/dL (8.4-10.2); Carbon Dioxide 19 mmol/L (22-29); Chloride 99 mmol/L (96-108); Creatinine Clr Calc Pharmacy 20.1; Estimated Glomerular Filt Rate 38; Glucose Random 123 mg/dL (60-115); Lipase 40 U/L (8-78); Magnesium 1.8 mg/dL (1.6-2.6); Potassium 6.2 mmol/L (3.3-5.1); Sodium 124 mmol/L (135-145)
[2022-07-15] MEDS: Albuterol Sulfate (0.083%) 2.5 MG/3 ML VIAL.NEB 10 MG INHALE (16:06)
[2022-07-15 16:09] VITALS: PULSE 78; RESP 17; O2SAT 100
[2022-07-15] MEDS: Sodium Zirconium Cyclosilicate 10 GM POWD.PACK PO (16:20)
[2022-07-15] MEDS: 0.9 % Sodium Chloride 1,000 ML 999 ML IVCONT (16:32)
[2022-07-15 17:47] LABS: Anion Gap 15 (12-20); Blood Urea Nitrogen 31 mg/dL (9-16); Calcium 9.2 mg/dL (8.4-10.2); Carbon Dioxide 17 mmol/L (22-29); Chloride 101 mmol/L (96-108); Creatinine Clr Calc Pharmacy 22.4; Estimated Glomerular Filt Rate 43; Glucose Random 135 mg/dL (60-115); Potassium 5.5 mmol/L (3.3-5.1); Sodium 127 mmol/L (135-145)
--- NOTE | 2022-07-15 19:18 | PC.NURSE ---
bnp needs to be drawn, lab called and can not be added on to the labs.
[2022-07-15 20:25] VITALS: BP 116/42; PULSE 91; RESP 18
[2022-07-15 20:42] LABS: Appearance Urine Clear; Color Urine Yellow; Glucose Urine UA Negative (Negative); Leukocyte Esterase Urine Small (1+) (Negative); Nitrite Urine Negative (Negative); PH 5.5 (5.0-9.0); Specific Gravity - Urine <= 1.005 (1.005-1.025); UMIC TRIGGER UACC YES; Urine Blood Negative (Negative); Urine Ketones Negative (Negative); Urine Protein Negative (Neg-Trace)
--- NOTE | 2022-07-15 21:00 | P.HPHOSP_ITS ---
History of Present Illness Date of Service: 07/15/22 Attending physician on admission: Nakul Martin Chief Complaint: nausea, vomiting diarrhea 82-year-old female with history of aortic stenosis HFpEF, iron deficiency anemia, history of colon ulcer, osteoporosis, hypothyroidism, hyperlipidemia, hypertension earlier today with her daughter who assists with history and [place] interpretation for evaluation of generalized weakness, nausea, vomiting, and diarrhea. She states she has been having multiple episodes of watery diarrhea for the last week. This morning reports 1 episode of vomiting. Initially she had also had some lightheadedness but this has resolved but nausea does persist. She was recently started on spironolactone and furosemide for her CHF. She denies any fevers, chills, visual changes, abdominal pain, hematemesis, hematochezia, melena, dysuria, hematuria, lower extremity edema, shortness of breath, or chest pain. On arrival, vital signs stable. No leuk ocytosis. Microcytic anemia with H/H 10.1/30.9%, MCV 79.2 consistent with baseline. Creatinine 1.20, BUN 31, sodium 127, potassium 5.5, chloride 101, CO2 17. Urinalysis with 1+ leukocytes, otherwise unremarkable. In the ED, patient treated with 10 mg albuterol updraft, 10 g Lokelma, and 1000 mL IV NS. Review of Systems Review of Systems: Yes all other systems are reviewed and are negative [facility] Medical History Aortic stenosis Congestive heart failure Dyslipidemia Essential hypertension Hyponatremia Hypothyroidism Osteoporosis Family History Father No problems noted. Mother In good health Surgical History History of breast biopsy History of colonoscopy Social History Household Members: Spouse and Children Housing: House Do you presently have visiting nurse or other home services: No Alcohol intake: never Patient Tobacco Use Status: Former Tobacco user Tobacco use type: Cigarette Cigarettes Per Day: 2 Smoked in Last 30 Days: No e-Cigarette/Vaping Use: Never Used Second Hand Smoke Exposure: No Use of substances other than those prescribed or required for medical reasons: No Advance Directives: Yes Advance Directives on File: Yes Advance Directives Date on File: 05/15/22 service: No Current occupational status: disabled Cognitive needs: No Hearing needs: No Vision needs: No Meds Allergies Allergy/AdvReac Type Severity Reaction Status Date / Time hydrochlorothiazide Allergy Intermediate restlessnes Verified 06/10/22 08:07 s amlodipine AdvReac Intermediate dizziness, Verified 06/10/22 08:07 tiredness Active Medications: Current Medications Acetaminophen (Acetaminophen 325 Mg Tablet) 650 mg PO Q6H PRN PRN Reason: Pain, Mild, headache Docusate Sodium (Docusate Sodium 100 Mg Capsule) 100 mg PO DAILY PRN PRN Reason: Constipation Enoxaparin Sodium (Enoxaparin Sodium 30 Mg/0.3 Ml Syringe) 30 mg SUBCUT Q24H IRENA Sodium Chloride (Ns) 1,000 mls @ 100 mls/hr IVCONT .Q10H IRENA Ondansetron HCl (Ondansetron Hcl 4 Mg/2 Ml Vial) 4 mg IVPUSH Q8H PRN PRN Reason: Nausea and Vomiting Pharmacy Consult (Consult Rx Perform Med Rec) 1 each MISCELLANE ONCE PRN PRN Reason: Consult order Physical Exam Vital Signs and Narrative: Vital Signs: Last Vital Signs Temp 98.3 F 07/15/22 15:32 Pulse 91 07/15/22 20:25 Resp 18 07/15/22 20:25 BP 116/42 L 07/15/22 20:25 Pulse Ox 95 07/15/22 15:32 O2 Del Method 07/15/22 20:25 BMI result Body Mass Index 19.5 Constitutional - Awake and Alert, No apparent distress Eyes - PERRLA, EOMI Cardiovascular - S1S2, RRR, 1+ pitting edema BLE Respiratory - Normal lung expansion, Normal respiratory effort, No respiratory distress, CTA bilaterally Gastrointestinal - NT / ND; +BS; No rebound or guarding Extremities - no calf tenderness bilaterally, no swelling Skin - Warm/Dry Neurological - Alert & oriented x3, CN II-XII in tact, 5/5 strength BUE and BLE Psychological - Appropriate affect Results Labs 07/15/22 15:01 07/15/22 17:23 Labs: Laboratory Results - last 24 hr 07/15/22 07/15/22 07/15/22 15:01 15:01 15:01 MCV 79.2 L MCH 25.9 L MCHC 32.7 RDW 23.5 H Plt Count 327 D MPV 8.6 L Immature Gran % (Auto) 0.4 Neut % (Auto) 81.5 H Lymph % (Auto) 13.8 L Russell % (Auto) 3.7 Eos % (Auto) 0.1 Baso % (Auto) 0.5 Lymph # (Auto) 1.1 L Russell # (Auto) 0.3 Eos # (Auto) 0.0 Baso # (Auto) 0.0 Abs Immat Gran (auto) 0.03 Absolute Neuts (auto) 6.3 Absolute Nucleated RBC 0.000 Nucleated RBC % (auto) 0.0 Anion Gap 12 Estim Creat Clear Calc 20.1 Estimated GFR 38 Random Glucose 123 H Calcium 9.8 Magnesium 1.8 Total Bilirubin 0.4 Direct Bilirubin < 0.2 AST 26 ALT 21 Alkaline Phosphatase 76 Total Protein 8.0 Albumin 4.4 Lipase 40 Urine Color Urine Appearance Urine pH Ur Specific [place] Urine Protein Urine Glucose (UA) Urine Ketones Urine Blood Urine Nitrite Ur Leukocyte Esterase COVID-19 (KENNETH) COVID-19 Clin Com Influenza Type A (FRANCESCA) Negative Influenza Type B (FRANCESCA) Negative Influenza A & B Note See Note 07/15/22 07/15/22 07/15/22 15:01 17:23 20:29 MCV MCH MCHC RDW Plt Count MPV Immature Gran % (Auto) Neut % (Auto) Lymph % (Auto) Russell % (Auto) Eos % (Auto) Baso % (Auto) Lymph # (Auto) Russell # (Auto) Eos # (Auto) Baso # (Auto) Abs Immat Gran (auto) Absolute Neuts (auto) Absolute Nucleated RBC Nucleated RBC % (auto) Anion Gap 15 Estim Creat Clear Calc 22.4 Estimated GFR 43 Random Glucose 135 H Calcium 9.2 D Magnesium Total Bilirubin Direct Bilirubin AST ALT Alkaline Phosphatase Total Protein Albumin Lipase Urine Color Yellow Urine Appearance Clear Urine pH 5.5 Ur Specific [place] <= 1.005 Urine Protein Negative Urine Glucose (UA) Negative Urine Ketones Negative Urine Blood Negative Urine Nitrite Negative Ur Leukocyte Esterase Small (1+) H COVID-19 (KENNETH) Negative COVID-19 RepRegen Com See Note Influenza Type A (FRANCESCA) Influenza Type B (FRANCESCA) Influenza A & B Note Assessment and Plan (1) Acute hyperkalemia: Status: Acute (2) Hyponatremia: Status: Acute Plan 82-year-old female with history of aortic stenosis HFpEF, iron deficiency anemia, history of colon ulcer, osteoporosis, hypothyroidism, hyperlipidemia, hypertension admitted for further management of hyponatremia and hyperkalemia. # acute hyponatremia -likely related to diuretic use and GI loss -hold spironolactone, continue p.o. Lasix -continue IV normal saline -cardiac diet -appreciate Nephrology input -monitor I and O closely -urine studies pending -follow BMP # acute hyperkalemia -likely related to spironolactone use -hold spironolactone, continue p.o. Lasix -given albuterol, Lokelma, and IV fluids in the ED -No EKG changes, admit to telemetry -follow BMP # acute diarrhea -C diff and GI panel ordered # hypertension-reasonably controlled -continue home meds, hold spironolactone #HFpEF- without acute exacerbation -continue Lasix, hold spironolactone as above # chronic iron deficiency anemia related to chronic blood loss -follows outpatient with Gastroenterology, has colonic ulcer -continue ferrous sulfate # hypothyroidism -continue levothyroxine DVT prophylaxis-renally adjusted Lovenox Full code Patient requires inpatient stay of at least 2 midnights for management of acute hyponatremia and hyperkalemia Time Spent With Patient Time: Total time managing care of this patient today ____ minutes. Quality Stroke Does the patient have a stroke diagnosis?: No VTE Prior VTE?: No VTE Risk Level:: Medical - moderate - high VTE Device Contraindication: Treatment Not Indicated VTE Drug Contraindication: N/A - Med Ordered
[2022-07-15 21:02] LABS: Bacteria Urine None Seen (None Seen); Hyaline Casts Urine 0-2 /LPF (0-2); RBC Urine 0-2 /HPF (0-2); Squamous Epithelial Cell Urine 0-2 /HPF (0-2); UACC Culture Trigger YES; WBC Urine 0-5 /HPF (0-5)
--- NOTE | 2022-07-15 21:02 | PHA.MEDREC ---
Pharmacy Consult ? Medication Reconciliation Pharmacy has completed the medication reconciliation.Pharmacy has reviewed med rec done by Rose in [facility] – [place].
[2022-07-15 21:15] LABS: Creatinine Urine 25.01 mg/dL
[2022-07-15 21:24] LABS: Osmolality Urine 228 mosm/kg (373-1093)
[2022-07-15] MEDS: Enoxaparin Sodium 30 MG/0.3 ML SYRINGE SUBCUT (21:51)
[2022-07-15] MEDS: Atorvastatin Calcium 40 MG TABLET PO (21:51)
[2022-07-15] MEDS: Acetaminophen 325 MG TABLET 650 MG PO (21:51)
[2022-07-15] MEDS: 0.9 % Sodium Chloride 1,000 ML 100 ML IVCONT (21:55)
[2022-07-16 01:48] VITALS: BP 118/43; PULSE 85; RESP 16; O2SAT 98
--- NOTE | 2022-07-16 04:59 | PC.NURSE ---
Patient is sleeping at this time. RR 16, respirations are even, non-labored, O2 Sat 98% RA, no s/s of acute distress noted. Call agrawal within patient's reach.
[2022-07-16] MEDS: Acetaminophen 325 MG TABLET 650 MG PO ×2 (05:44→20:18)
[2022-07-16] MEDS: Levothyroxine Sodium 88 MCG TABLET PO (05:45)
[2022-07-16] MEDS: Omeprazole 20 MG CAPSULE.DR PO ×2 (05:45→16:57)
[2022-07-16 08:14] VITALS: BP 107/44; PULSE 86; RESP 16; TEMP 36.8; O2SAT 99
[2022-07-16] MEDS: Furosemide 20 MG TABLET PO (08:26)
[2022-07-16] MEDS: 0.9 % Sodium Chloride 1,000 ML 100 ML IVCONT (08:26)
[2022-07-16] MEDS: amLODIPine Besylate 5 MG TABLET PO (08:26)
[2022-07-16] MEDS: lisinopriL 40 MG TABLET PO (08:26)
[2022-07-16] MEDS: Ferrous Sulfate 324 MG TABLET.DR PO (08:26)
--- NOTE | 2022-07-16 10:34 | P.PNIM_ITS ---
Subjective Subjective Date of Service: 07/16/22 Interval History: Seen in follow for acute hyponatremia and hyperkalemia Interval history: Patient reports feeling well. No recurrent episodes diarrhea, nausea, vomiting. No arrhythmia noted on telemetry Review of Systems Review of Systems: Yes all other systems are reviewed and are negative Physical Exam Vital Signs: Vital Signs: Last Vital Signs Temp 98.3 F 07/16/22 08:14 Pulse 86 07/16/22 08:14 Resp 16 07/16/22 08:14 BP 107/44 L 07/16/22 08:14 Pulse Ox 99 07/16/22 08:14 O2 Del Method 07/16/22 08:14 BMI result Body Mass Index 19.5 Constitutional - Awake and Alert, No apparent distress Eyes - PERRLA, EOMI Cardiovascular - S1S2, RRR, No edema Respiratory - Normal lung expansion, Normal respiratory effort, No respiratory distress, CTA bilaterally Gastrointestinal - NT / ND; +BS; No rebound or guarding Extremities - no calf tenderness bilaterally, no swelling Skin - Warm/Dry Neurological - Alert & oriented x3 Psychological - Appropriate affect Objective Data Active Medications Acetaminophen (Acetaminophen 325 Mg Tablet) 650 mg PO Q6H PRN PRN Reason: Pain, Mild, headache Last Admin: 07/16/22 05:44 Dose: 650 mg Documented By: NAYE Amlodipine Besylate (Amlodipine Besylate 5 Mg Tablet) 5 mg PO DAILY [facility]; Protocol Last Admin: 07/16/22 08:26 Dose: 5 mg Documented By: ALBERTO Atorvastatin Calcium (Atorvastatin Calcium 40 Mg Tablet) 40 mg PO BEDTIME [facility] Last Admin: 07/15/22 21:51 Dose: 40 mg Documented By: BLANK Docusate Sodium (Docusate Sodium 100 Mg Capsule) 100 mg PO DAILY PRN PRN Reason: Constipation Enoxaparin Sodium (Enoxaparin Sodium 30 Mg/0.3 Ml Syringe) 30 mg SUBCUT Q24H [facility] Last Admin: 07/15/22 21:51 Dose: 30 mg Documented By: BLANK Ferrous Sulfate (Ferrous Sulfate 324 Mg Tablet.) 324 mg PO DAILY [facility] Last Admin: 07/16/22 08:26 Dose: 324 mg Documented By: ALBERTO Furosemide (Furosemide 20 Mg Tablet) 20 mg PO DAILY [facility]; Protocol Last Admin: 07/16/22 08:26 Dose: 20 mg Documented By: ALBERTO Sodium Chloride (Ns) 1,000 mls @ 100 mls/hr IVCONT .Q10H [facility] Last Admin: 07/16/22 08:26 Dose: 100 mls/hr Documented By: ALBERTO Levothyroxine Sodium (Levothyroxine Sodium 88 Mcg Tablet) 88 mcg PO DAILY@0600 [facility] Last Admin: 07/16/22 05:45 Dose: 88 mcg Documented By: NAYE Lisinopril (Lisinopril 40 Mg Tablet) 40 mg PO DAILY [facility]; Protocol Last Admin: 07/16/22 08:26 Dose: 40 mg Documented By: ALBERTO Omeprazole (Omeprazole 20 Mg Capsule.) 20 mg PO BID@0630,1630 [facility] Last Admin: 07/16/22 05:45 Dose: 20 mg Documented By: NAYE Ondansetron HCl (Ondansetron Hcl 4 Mg/2 Ml Vial) 4 mg IVPUSH Q8H PRN PRN Reason: Nausea and Vomiting Pharmacy Consult (Consult Rx Perform Med Rec) 1 each MISCELLANE ONCE PRN PRN Reason: Consult order Labs 07/15/22 15:01 07/15/22 17:23 Labs: Laboratory Results - last 24 hr 07/15/22 07/15/22 07/15/22 15:01 15:01 15:01 MCV 79.2 L MCH 25.9 L MCHC 32.7 RDW 23.5 H Plt Count 327 D MPV 8.6 L Immature Gran % (Auto) 0.4 Neut % (Auto) 81.5 H Lymph % (Auto) 13.8 L [place] % (Auto) 3.7 Eos % (Auto) 0.1 Baso % (Auto) 0.5 Lymph # (Auto) 1.1 L [place] # (Auto) 0.3 Eos # (Auto) 0.0 Baso # (Auto) 0.0 Abs Immat Gran (auto) 0.03 Absolute Neuts (auto) 6.3 Absolute Nucleated RBC 0.000 Nucleated RBC % (auto) 0.0 Anion Gap 12 Estim Creat Clear Calc 20.1 Estimated GFR 38 Random Glucose 123 H Calcium 9.8 Magnesium 1.8 Total Bilirubin 0.4 Direct Bilirubin < 0.2 AST 26 ALT 21 Alkaline Phosphatase 76 Total Protein 8.0 Albumin 4.4 Lipase 40 Urine Color Urine Appearance Urine pH Ur Specific [place] Urine Protein Urine Glucose (UA) Urine Ketones Urine Blood Urine Nitrite Ur Leukocyte Esterase Urine RBC Urine WBC Ur Squamous Epith Cells Urine Bacteria Hyaline Casts Urine Osmolality Ur Random Sodium Urine Creatinine COVID-19 (KENNETH) COVID-19 Clin Com Influenza Type A (FRANCESCA) Negative Influenza Type B (FRANCESCA) Negative Influenza A & B Note See Note 07/15/22 07/15/22 07/15/22 15:01 17:23 20:29 MCV MCH MCHC RDW Plt Count MPV Immature Gran % (Auto) Neut % (Auto) Lymph % (Auto) [place] % (Auto) Eos % (Auto) Baso % (Auto) Lymph # (Auto) [place] # (Auto) Eos # (Auto) Baso # (Auto) Abs Immat Gran (auto) Absolute Neuts (auto) Absolute Nucleated RBC Nucleated RBC % (auto) Anion Gap 15 Estim Creat Clear Calc 22.4 Estimated GFR 43 Random Glucose 135 H Calcium 9.2 D Magnesium Total Bilirubin Direct Bilirubin AST ALT Alkaline Phosphatase Total Protein Albumin Lipase Urine Color Yellow Urine Appearance Clear Urine pH 5.5 Ur Specific [place] <= 1.005 Urine Protein Negative Urine Glucose (UA) Negative Urine Ketones Negative Urine Blood Negative Urine Nitrite Negative Ur Leukocyte Esterase Small (1+) H Urine RBC 0-2 Urine WBC 0-5 Ur Squamous Epith Cells 0-2 Urine Bacteria None Seen Hyaline Casts 0-2 Urine Osmolality Ur Random Sodium Urine Creatinine COVID-19 (KENNETH) Negative COVID-19 Clin Com See Note Influenza Type A (FRANCESCA) Influenza Type B (FRANCESCA) Influenza A & B Note 07/15/22 07/15/22 20:29 20:30 MCV MCH MCHC RDW Plt Count MPV Immature Gran % (Auto) Neut % (Auto) Lymph % (Auto) [place] % (Auto) Eos % (Auto) Baso % (Auto) Lymph # (Auto) [place] # (Auto) Eos # (Auto) Baso # (Auto) Abs Immat Gran (auto) Absolute Neuts (auto) Absolute Nucleated RBC Nucleated RBC % (auto) Anion Gap Estim Creat Clear Calc Estimated GFR Random Glucose Calcium Magnesium Total Bilirubin Direct Bilirubin AST ALT Alkaline Phosphatase Total Protein Albumin Lipase Urine Color Urine Appearance Urine pH Ur Specific [place] Urine Protein Urine Glucose (UA) Urine Ketones Urine Blood Urine Nitrite Ur Leukocyte Esterase Urine RBC Urine WBC Ur Squamous Epith Cells Urine Bacteria Hyaline Casts Urine Osmolality 228 L Ur Random Sodium 42.0 Urine Creatinine 25.01 COVID-19 (KENNETH) COVID-19 Clin Com Influenza Type A (FRANCESCA) Influenza Type B (FRANCESCA) Influenza A & B Note Assessment and Plan (1) Acute hyperkalemia: Status: Acute (2) Hyponatremia: Status: Acute (3) LUCILLE (acute kidney injury): Status: Acute Plan 82-year-old female with history of aortic stenosis HFpEF, iron deficiency anemia, history of colon ulcer, osteoporosis, hypothyroidism, hyperlipidemia, hypertension admitted for further management of hyponatremia and hyperkalemia. # acute hyponatremia -likely related to diuretic use -hold spironolactone, continue p.o. Lasix -Improved 124 -> 127 -> 132 -Urine osmolality- 228 -Hold IV NS -cardiac diet -appreciate Nephrology input -follow BMP # acute hyperkalemia- resolved -likely related to combination spironolactone and lisinopril and LUCILLE -hold spironolactone and lisinopril, continue p.o. Lasix -follow BMP #Acute kidney injury- prerenal likely related to GI losses- resolved -Continue IVF -appreciate nephrology input # acute diarrhea- resolve -C diff and GI panel canceled- no longer needed # hypertension-bp soft -continue home meds, hold spironolactone and lisinopril #HFpEF- without acute exacerbation -continue Lasix, hold spironolactone as above # chronic iron deficiency anemia related to chronic blood loss -follows outpatient with Gastroenterology, has colonic ulcer -continue ferrous sulfate # hypothyroidism -continue levothyroxine DVT prophylaxis-renally adjusted Lovenox Full code Patient requires ongoing inpatient stay for management of acute hyponatremia and hyperkalemia requiring close monitoring or electrolytes and renal function as well as expert consultation Time Spent With Patient Time: Total time managing care of this patient today ____ minutes. Quality Stroke Does the patient have a stroke diagnosis?: No VTE Prior VTE?: No VTE Risk Level:: Medical - moderate - high VTE Device Contraindication: Treatment Not Indicated VTE Drug Contraindication: N/A - Med Ordered
[2022-07-16 10:42] LABS: MANUAL DIFF FLAG NO
[2022-07-16 10:45] LABS: Basophils Percent Auto 0.5 % (0-2); Eosinophils Absolute Auto 0.1 X10*3/uL (0.0-0.4); Eosinophils Percent Auto 1.1 % (0-4); Hematocrit 26.8 % (37.0-47.0); Hemoglobin 8.7 g/dl (12.0-16.0); Imm Gran Abs Auto 0.01 X10*3/uL (0.00-0.03); Imm Gran Pct Auto 0.2 % (0.0-0.4); Lymphocytes Absolute Auto 0.9 X10*3/uL (1.2-4.9); Lymphocytes Percent Auto 16.7 % (20-40); Mean Corpuscular HGB Conc 32.5 g/dl (31.0-35.0); Mean Corpuscular Hemoglobin 25.7 pg (27.0-33.0); Mean Corpuscular Volume 79.3 fL (80.0-98.0); Mean Platelet Volume 8.4 fL (9.4-12.3); Monocytes Absolute Auto 0.6 X10*3/uL (0.1-1.2); Monocytes Percent Auto 10.6 % (2-11); Neutrophils Absolute Auto 3.9 x10*3/uL (2.0-8.3); Neutrophils Percent Auto 70.9 % (45-73); Platelet Count 264 X10*3/uL (160-400); Red Blood Count 3.38 X10*6/uL (4.20-5.50); Red Cell Distribution Width 23.5 % (11.0-16.0); White Blood Count 5.6 X10*3/uL (4.8-10.8)
[2022-07-16 10:56] LABS: Anion Gap 11 (12-20); Blood Urea Nitrogen 17 mg/dL (9-16); Calcium 8.7 mg/dL (8.4-10.2); Carbon Dioxide 20 mmol/L (22-29); Chloride 106 mmol/L (96-108); Creatinine Clr Calc Pharmacy 32.7; Estimated Glomerular Filt Rate > 60; Glucose Random 109 mg/dL (60-115); Potassium 4.9 mmol/L (3.3-5.1); Sodium 132 mmol/L (135-145)
[2022-07-16 11:58] VITALS: BMI 21.2
[2022-07-16 12:00] VITALS: BP 96/59; PULSE 78; RESP 18; TEMP 36.7; O2SAT 98
--- NOTE | 2022-07-16 12:34 | MHC.CM.PN ---
Addendum entered by Shanell Puente 07/16/22 12:39: Correction: PCP DR Allegra Blum Original Note: FEMALE 82 DX Hypo Na+ Hypre K+ She lives with her spouse and son. She has 2 dtrs locally that assist too. Patient is independent with all functional mobility. PCP is Dr Erazo. VAXX x 4. Her HCP is on file. DP home with family assist and transport.
[2022-07-16 15:47] VITALS: BP 116/57; PULSE 79; RESP 14; TEMP 36.3; O2SAT 98
[2022-07-16 17:23] LABS: Anion Gap 13 (12-20); Carbon Dioxide 19 mmol/L (22-29); Chloride 105 mmol/L (96-108); Potassium 5.1 mmol/L (3.3-5.1); Sodium 132 mmol/L (135-145)
[2022-07-16 20:00] VITALS: BP 112/55; PULSE 94; RESP 14; TEMP 36.2; O2SAT 98
[2022-07-16] MEDS: Enoxaparin Sodium 30 MG/0.3 ML SYRINGE SUBCUT (20:18)
[2022-07-16] MEDS: Atorvastatin Calcium 40 MG TABLET PO (20:19)
[2022-07-17] VITALS: BP 102/55; PULSE 74; RESP 20; TEMP 36.9; O2SAT 98
[2022-07-17 04:00] VITALS: BP 130/60; PULSE 78; RESP 18; TEMP 36.1; O2SAT 99
[2022-07-17] MEDS: Levothyroxine Sodium 88 MCG TABLET PO (05:43)
[2022-07-17] MEDS: Omeprazole 20 MG CAPSULE.DR PO (05:43)
[2022-07-17 06:47] LABS: Basophils Percent Auto 0.8 % (0-2); Eosinophils Absolute Auto 0.1 X10*3/uL (0.0-0.4); Eosinophils Percent Auto 2.5 % (0-4); Hematocrit 29.1 % (37.0-47.0); Hemoglobin 9.1 g/dl (12.0-16.0); Imm Gran Abs Auto 0.01 X10*3/uL (0.00-0.03); Imm Gran Pct Auto 0.2 % (0.0-0.4); Lymphocytes Percent Auto 37.2 % (20-40); MANUAL DIFF FLAG SCAN; Mean Corpuscular HGB Conc 31.3 g/dl (31.0-35.0); Mean Corpuscular Hemoglobin 25.6 pg (27.0-33.0); Monocytes Absolute Auto 0.5 X10*3/uL (0.1-1.2); Monocytes Percent Auto 9.9 % (2-11); Neutrophils Absolute Auto 2.6 x10*3/uL (2.0-8.3); Neutrophils Percent Auto 49.4 % (45-73); PLT CLUMP 1; Red Blood Count 3.55 X10*6/uL (4.20-5.50); Red Cell Distribution Width 23.9 % (11.0-16.0); SCAN SMEAR FLAG 1; White Blood Count 5.2 X10*3/uL (4.8-10.8)
[2022-07-17 07:07] LABS: Anion Gap 9 (12-20); Blood Urea Nitrogen 22 mg/dL (9-16); Calcium 8.8 mg/dL (8.4-10.2); Carbon Dioxide 21 mmol/L (22-29); Chloride 105 mmol/L (96-108); Creatinine Clr Calc Pharmacy 30.9; Estimated Glomerular Filt Rate > 60; Glucose Random 85 mg/dL (60-115); Potassium 4.4 mmol/L (3.3-5.1); Sodium 131 mmol/L (135-145)
[2022-07-17 07:21] LABS: Cortisol Random 19.9 ug/dL; TSH reflex Free T4 0.12 uIU/mL (0.32-4.0)
[2022-07-17 07:43] VITALS: BP 110/49; PULSE 66; RESP 12; TEMP 36.6; O2SAT 99
[2022-07-17 07:55] LABS: Free T4 (Free Thyroxine) 1.33 ng/dL (0.71-1.85)
[2022-07-17 08:08] LABS: Platelet Count 301 X10*3/uL (160-400)
[2022-07-17 08:09] LABS: SLIDE REVIEW VERIFIED
[2022-07-17] MEDS: amLODIPine Besylate 5 MG TABLET PO (09:55)
[2022-07-17] MEDS: Ferrous Sulfate 324 MG TABLET.DR PO (09:55)
[2022-07-17] MEDS: Furosemide 20 MG TABLET PO (09:55)
--- NOTE | 2022-07-17 10:26 | CONS_ITS ---
DATE OF SERVICE: 07/16/2022 REASON FOR CONSULTATION: I was asked to see patient to assist in evaluation and management of patient's electrolyte abnormalities as reflected by a serum sodium that was 127 and potassium of 5.5 and a serum bicarb of 17. HISTORY OF PRESENT ILLNESS: In summary, the patient is 82-year-old patient with multiple chronic medical problems including aortic stenosis, heart failure with preserved EF, iron deficiency anemia, osteoporosis, hypothyroidism, hyperlipidemia, hypertension, who presented to the emergency room complaining of generalized weakness, nausea, vomiting, diarrhea. The patient apparently is on multiple diuretics including spironolactone and Lasix for her heart failure management. As mentioned, in the emergency room, she was noted to have multiple metabolic abnormalities, hence her current consultation. PAST MEDICAL HISTORY: As noted above. MEDICATIONS: Medications on admission are noted in the admitting notes. Current medications on the JUL. SOCIAL HISTORY: She is nonsmoker, nondrinker. No illicit drug use. Denies any NSAIDs. FAMILY HISTORY: Noncontributory. REVIEW OF SYSTEMS: As noted above. PHYSICAL EXAMINATION: VITAL SIGNS: Blood pressure of 118/60 with a heart rate in the 90s. HEAD: Atraumatic and normocephalic. NECK: Supple. Mucous membranes are moist. LUNGS: Breath sounds bilaterally. CARDIAC: Regular rate and rhythm without rub. ABDOMEN: Soft, nontender. Good bowel sounds. No CVA tenderness. EXTREMITIES: Show no edema. LABORATORY DATA: Showed a sodium of 127, potassium 5.5, chloride 101, bicarb 17, BUN 31, creatinine 1.2. Hemoglobin 10.1, hematocrit 30.9, white count 7.8. I do see there was an earlier serum sodium from 3 p.m. yesterday of 124 and potassium at that time 6.2. Had urine studies done, which showed urine sodium of 42 and urine osmo 228. Repeat labs from 10 a.m. today shows a sodium 132, potassium 4.9, bicarb up to 20. BUN 17, creatinine 0.8. IMPRESSION: AN 82-YEAR-OLD HEART FAILURE PATIENT ADMITTED TO THE HOSPITAL WITH HYPONATREMIA AND HYPERKALEMIA IN THE SETTING OF VOLUME DEPLETION AND DIARRHEA. 1. Hyponatremia. Clinically, patient fits the bill for hypovolemic hyponatremia despite urine sodium of 42. The urine sodium of 42, may reflect ongoing use of diuretics, which is causing inappropriately increased urine sodium loss in the setting of hypovolemia. The good news is that her serum sodium continues to improve with IV hydration. Other possibilities such as adrenal insufficiency and hypothyroidism need to rule out with laboratory tests. Need to avoid too rapid rate of correction of her serum sodium, as mentioned. Her serum sodium was 124 at 3 p.m. yesterday and it is 132, which would be a rise of 8 mEq. We will repeat the serum sodium. If it has gone up any further, may need to give her gentle IV D5W. 2. Hyperkalemia. This is likely due to her being on spironolactone and volume depletion, which can cause hyperkalemia as well due to the renal dysfunction. Again, the good news this is resolved. 3. Acute kidney injury. Creatinine down to 0.82. RECOMMENDATIONS: At this time include continue to hold her diuretics. I would hold her IV fluids. Repeat lytes on her serum sodium has gone up then we will give her gentle D5W infusion. We will check a.m. TSH and an a.m. cortisol level. We will follow the patient with the team. MD SASHA Newell/FERNANDO / [id number]
--- NOTE | 2022-07-17 10:31 | MHC.CM.PN ---
IMM 07/16/22 DX Lytes imbalance She is discharged to home self care today. She has arranged for transportation home. Family will provide assist @ discharge including transportation.
[2022-07-17 11:07] VITALS: BP 101/42; PULSE 62; RESP 16; TEMP 36.7; O2SAT 99
--- NOTE | 2022-07-17 12:40 | PM.DS ---
DS: Providers Provider Date of Service: 07/17/22 Date of admission: 07/15/22 20:32 Date of discharge: 07/17/22 Primary care physician: Allegra Blum MD Admitting clinician: Doreen Huggins Attending physician on admission: Nakul Martin Consults: 07/15/22 20:31 Consult to Nephrology Routine Consulting Provider: Otf Kothari Reason for consultation: hyponatremia, hyperkalemia Attending physician on discharge: Jayme Reyes Discharging clinician: Doreen Huggins DS: Diagnosis Discharge Diagnosis (1) Acute hyperkalemia: Status: Acute (2) Hyponatremia: Status: Acute (3) LUCILLE (acute kidney injury): Status: Acute DS: Summary Hospital Course Hospital Course: HPI on admission 07/15/22 by this author: 82-year-old female with history of aortic stenosis HFpEF, iron deficiency anemia, history of colon ulcer, osteoporosis, hypothyroidism, hyperlipidemia, hypertension earlier today with her daughter who assists with history and Turkmen interpretation for evaluation of generalized weakness, nausea, vomiting, and diarrhea.? She states she has been having multiple episodes of watery diarrhea for the last week.? This morning reports 1 episode of vomiting.? Initially she had also had some lightheadedness but this has resolved but nausea does persist.? She was recently started on spironolactone and furosemide for her CHF.? She denies any fevers, chills, visual changes, abdominal pain, hematemesis, hematochezia, melena, dysuria, hematuria, lower extremity edema, shortness of breath, or chest pain.? On arrival, vital signs stable.? No leukocytosis.? Microcytic anemia with H/H 10.1/30.9%, MCV 79.2 consistent with baseline.? Creatinine 1.20, BUN 31, sodium 127, potassium 5.5, chloride 101, CO2 17.? Urinalysis with 1+ leukocytes, otherwise unremarkable.? In the ED, patient treated with 10 mg albuterol updraft, 10 g Lokelma, and 1000 mL IV NS. Hospital Course: Hospital course uneventful. Pt admitted with hyponatremia and hyperkalemia following brief GI illness with vomiting and diarrhea as well as combination of spironolactone, lasix, and lisinopril. On admission, spironolactone and lisinopril held. She was given IV NS with gradual improvement to from 124-132 and K improved to 4.9. LUCILLE also resolved following IVF. There were no recurrent episodes of diarrhea or vomiting during admission. BP remained soft throughout admission. She was evaluated by nephrology and spironolactone was resumed on day of discharge at 12.5mg. She should remain off RAMIRO/ARB indefinitely while taking potassium-sparing diuretic. K 4.5 and Na 131 on day of discharge. Urine osmolality 228. She will continue on lasix 20mg daily with the spironolactone in the setting of CHF and continue amlodipine 5mg daily. Repeat BMP in around 7 days. Follow up with PCP soon and nephrology. Status at Discharge Functional status at discharge: independent ambulation Overall status at discharge: patient is not back to baseline Time Spent with Patient Time attestation: Total time managing care of this patient today ____ minutes. Discharge coordination time: Greater than 30 minutes Quality: Safe Use of Opioids Does Pt have an Active Cancer Diagnosis on the Problem List?: No Quality: Stroke Does the patient have a stroke diagnosis?: No Physical Exam Vital Signs: Vital Signs: Last Vital Signs Temp 98.0 F 07/17/22 11:07 Pulse 62 07/17/22 11:07 Resp 16 07/17/22 11:07 BP 101/42 L 07/17/22 11:07 Pulse Ox 99 07/17/22 11:07 O2 Del Method 07/17/22 11:07 BMI result Body Mass Index 21.2 Constitutional - Awake and Alert, No apparent distress Eyes - PERRLA, EOMI Cardiovascular - S1S2, RRR, No edema Respiratory - Normal lung expansion, Normal respiratory effort, No respiratory distress, CTA bilaterally Gastrointestinal - NT / ND; +BS; No rebound or guarding - No CVA tenderness Extremities - no calf tenderness bilaterally, no swelling Skin - Warm/Dry Neurological - Alert & oriented x3, CN II-XII in tact, 5/5 strength BUE and BLE Psychological - Appropriate affect DS: Data Data Completed and Pending Completed studies during hospitalization [Text1]: Procedures Excision of Duodenum, Via Natural or Artificial Opening Endoscopic, Diagnostic (05/13/22) Excision of Left Large Intestine, Via Natural or Artificial Opening Endoscopic, Diagnostic (05/13/22) Excision of Right Large Intestine, Via Natural or Artificial Opening Endoscopic, Diagnostic (05/13/22) Excision of Stomach, Pylorus, Via Natural or Artificial Opening Endoscopic, Diagnostic (05/13/22) Transfusion of Nonautologous Red Blood Cells into Peripheral Vein, Percutaneous Approach (05/13/22) Labs on day of discharge: Laboratory Results - last 24 hr 07/16/22 07/17/22 07/17/22 16:41 06:09 06:09 WBC RBC Hgb Hct MCV MCH MCHC RDW Plt Count MPV Immature Gran % (Auto) Neut % (Auto) Lymph % (Auto) [place] % (Auto) Eos % (Auto) Baso % (Auto) Lymph # (Auto) [place] # (Auto) Eos # (Auto) Baso # (Auto) Abs Immat Gran (auto) Absolute Neuts (auto) Absolute Nucleated RBC Nucleated RBC % (auto) Smear Tech's Comments Sodium 132 L Potassium 5.1 Chloride 105 Carbon Dioxide 19 L Anion Gap 13 BUN Creatinine Estim Creat Clear Calc Estimated GFR Random Glucose Calcium TSH 0.12 L Free T4 1.33 Random Cortisol 19.9 07/17/22 07/17/22 06:09 06:09 WBC 5.2 RBC 3.55 L Hgb 9.1 L Hct 29.1 L MCV 82.0 MCH 25.6 L MCHC 31.3 RDW 23.9 H Plt Count 301 MPV Not Reportable Immature Gran % (Auto) 0.2 Neut % (Auto) 49.4 Lymph % (Auto) 37.2 [place] % (Auto) 9.9 Eos % (Auto) 2.5 Baso % (Auto) 0.8 Lymph # (Auto) 2.0 [place] # (Auto) 0.5 Eos # (Auto) 0.1 Baso # (Auto) 0.0 Abs Immat Gran (auto) 0.01 Absolute Neuts (auto) 2.6 Absolute Nucleated RBC 0.000 Nucleated RBC % (auto) 0.0 Smear Tech's Comments VERIFIED Sodium 131 L Potassium 4.4 Chloride 105 Carbon Dioxide 21 L Anion Gap 9 L BUN 22 H Creatinine 0.87 Estim Creat Clear Calc 30.9 Estimated GFR > 60 Random Glucose 85 Calcium 8.8 TSH Free T4 Random Cortisol Discharge Plan Discharge Anticipated Discharge Date/Time: 07/17/22 12:56 Patient Disposition: Home, Self-Care Discharge Diagnosis: Hyponatremia, hyperkalemia, LUCILLE Referrals: Allegra Figueroa MD [Primary Care Provider] - 1 Week Otf Kothari MD [Physician] - 1 Week Discharge Medications: New spironolactone 25 mg tablet 12.5 mg PO DAILY Qty: 30 0RF Continued ferrous sulfate 325 mg (65 mg iron) tablet 325 mg PO DAILY 90 Days Qty: 90 1RF furosemide 20 mg tablet 20 mg PO DAILY 90 Days Qty: 90 1RF Protocol: Hold for SBP< HOLD for SBP < : 90 atorvastatin 40 mg tablet 40 mg PO BEDTIME 90 Days Qty: 90 3RF levothyroxine 88 mcg tablet 88 mcg PO DAILY Qty: 90 0RF amlodipine 5 mg tablet 5 mg PO DAILY 90 Days Qty: 90 1RF Protocol: Hold for SBP< HOLD for SBP < : 90 omeprazole 20 mg capsule,delayed release(DR/EC) 20 mg PO BID 90 Days Qty: 180 0RF Discontinued lisinopril 40 mg tablet 40 mg PO DAILY 90 Days Qty: 90 3RF spironolactone 25 mg tablet 25 mg PO DAILY 90 Days Qty: 90 1RF Protocol: Hold for SBP< HOLD for SBP < : 90 Discharge Orders: Discharge Order (Routine); Ordered 07/17/22 Ordered By: Doreen Huggins Diet: Advance to usual diet Activity on Discharge: As tolerated Stand Alone Forms: Patient Portal Discharge page Other Ambulatory Orders: Basic Metabolic Panel (Routine) Timeframe: 1 Week Facility: [facility] - Location: Laboratory Ordered By: Doreen Huggins Care Plan Goals: Manage electrolyte levels Health Concerns: Electrolyte abnormality Acute kidney injury due to volume depletion Plan of Treatment: On admission, salt was low and potassium high. This is likely related to diuretic use in combination with lisinopril as well as recent GI illness. Your levels were corrected by holding lisinopril and spironolactone during admission and giving IV fluids. Your kidney function improved to baseline with fluids. Your blood pressure was low normal throughout admission. Recommend lisinopril be held indefintely while taking spironolactone which was resume at 12.5mg daily and should be continued on discharge. Follow up with PCP and Dr. Kothari (nephrology). Assessment: As above
[2022-07-17] MEDS: Spironolactone 25 MG TABLET 12.5 MG PO (13:11)
== END 2022-07-17 14:50 | disposition home or self-care (01) | DRG 683 ==
LOC: HO.ED 19:13 → HO.EDOVER 21:10 → HO.IMC 07-16 06:29
PROVIDERS: Internal Medicine Nephrology; Physician Assistant; Physician Assistant Medical; Admitting Provider Physician Assistant; Emergency Provider Emergency Medicine; PCP Internal Medicine; Visit Provider Physician Assistant
DX: N17.9 Acute kidney failure, unspecified (principal); E87.1 Hypo-osmolality and hyponatremia; I50.32 Chronic diastolic (congestive) heart failure; E78.5 Hyperlipidemia, unspecified; E03.9 Hypothyroidism, unspecified; I11.0 Hypertensive heart disease with heart failure; D50.0 Iron deficiency anemia secondary to blood loss (chronic); E87.5 Hyperkalemia; T50.0X5A Adverse effect of mineralocorticoids and their antagonists, initial encounter; T50.2X5A Adverse effect of carbonic-anhydrase inhibitors, benzothiadiazides and other diuretics, initial encounter; Z87.891 Personal history of nicotine dependence; Z88.8 Allergy status to other drugs, medicaments and biological substances; Z79.890 Hormone replacement therapy; Z79.899 Other long term (current) drug therapy
CPT/HCPCS: 36415; 80048; 80051; 80076; 81001; 82533; 83690; 83735; 83935; 84300; 84439; 84443; 85025; 87086; 87502; 87635; 93005; 94640; 96360; 96361; 99285; J1650

== ENCOUNTER → 2022-08-23 08:22 | Outpatient (BNVA) | payer MEDICARE, SELFPAY | PROVIDERS: PCP Internal Medicine; Referring Provider Internal Medicine; Visit Provider Internal Medicine Cardiovascular Disease | DX: I50.9 Heart failure, unspecified (principal); I35.0 Nonrheumatic aortic (valve) stenosis | CPT/HCPCS: 99212 ==

== ENCOUNTER 2022-08-29 10:04 | Outpatient (REF) | payer MEDICARE, SELFPAY ==
[2022-08-29 11:28] LABS: Hematocrit 38.3 % (37.0-47.0); Hemoglobin 12.8 g/dl (12.0-16.0); Mean Corpuscular HGB Conc 33.4 g/dl (31.0-35.0); Mean Corpuscular Hemoglobin 28.2 pg (27.0-33.0); Mean Corpuscular Volume 84.4 fL (80.0-98.0); Mean Platelet Volume 8.4 fL (9.4-12.3); Platelet Count 410 X10*3/uL (160-400); Red Blood Count 4.54 X10*6/uL (4.20-5.50); Red Cell Distribution Width 15.6 % (11.0-16.0); White Blood Count 7.9 X10*3/uL (4.8-10.8)
[2022-08-29 12:07] LABS: C Reactive Protein < 0.10 mg/dL (< or = 0.50)
[2022-08-29 12:40] LABS: Ferritin 29 ng/mL (10-250); Folate 14.7 ng/mL (> or = 4.0); Vitamin B12 716 pg/mL (200-900); Vitamin D 25-OH Total 29.9 ng/mL (>30)
[2022-09-04 00:44] LABS: Zinc 54 mcg/dL (60-130)
== END 2022-08-29 10:05 | disposition home or self-care (01) ==
LOC: HO.LAB 10:04
PROVIDERS: PCP Internal Medicine; Visit Provider Internal Medicine Gastroenterology
DX: D50.0 Iron deficiency anemia secondary to blood loss (chronic) (principal); K63.3 Ulcer of intestine; K25.9 Gastric ulcer, unspecified as acute or chronic, without hemorrhage or perforation; I10 Essential (primary) hypertension; E03.9 Hypothyroidism, unspecified; E78.5 Hyperlipidemia, unspecified; Z87.891 Personal history of nicotine dependence; Z79.899 Other long term (current) drug therapy
CPT/HCPCS: 36415; 82306; 82607; 82728; 82746; 84630; 85027; 86140; 99212

== ENCOUNTER 2022-09-04 07:22 | Day surgery (SDC) | payer MEDICARE, OTHER, SELFPAY ==
--- NOTE | 2022-09-03 11:49 | HO.ANESPROP2 ---
Documented by User: Salina Huynh NP 09/03/22 11:56 HPI - Anesthesia Eval Consult details Narrative: 82yo F for Upper Endoscopy and Colonoscopy s/p same 04/2022 with MAC Per 08/2022 Cardiac note: Referred to GI and heme for anemia. Euvolemic at appointment. Cardiology following aortic stenosis. [facility] Active Problems Active Problems: All Active Problems (Updated 08/02/22 @ 10:52 by LAYNE Mckoy) Impacted cerumen of right ear (Acute) Acute hyperkalemia (Acute) Hyponatremia (Acute) LUCILLE (acute kidney injury) (Acute) Colonic ulcer (Acute) Iron deficiency anemia due to chronic blood loss (Acute) Essential hypertension (Acute) Aortic stenosis (Acute) Congestive heart failure (Acute) Hypokalemia (Acute) Osteoporosis (Acute) Hypothyroidism (Acute) Dyslipidemia (Acute) Past Medical History Medical History Aortic stenosis Congestive heart failure Dyslipidemia Essential hypertension Hyponatremia Hypothyroidism Impacted cerumen of right ear Osteoporosis Family History Family History Father No problems noted. Mother In good health Family history of problems with anesthesia: No Surgical History Surgical History History of breast biopsy History of colonoscopy History of esophagogastroduodenoscopy (EGD) History of Problems with Anesthesia: No Social History Social History Household Members: Spouse and Family Housing: House Do you presently have visiting nurse or other home services: No Alcohol intake: never Patient Tobacco Use Status: Former Tobacco user Quit Date: 4 months ago Tobacco use type: Cigarette Cigarettes Per Day: 2 e-Cigarette/Vaping Use: Never Used Second Hand Smoke Exposure: No Use of substances other than those prescribed or required for medical reasons: No Advance Directives: Yes Advance Directives on File: Yes Advance Directives Date on File: 05/15/22 service: No Current occupational status: disabled Cognitive needs: No Hearing needs: No Vision needs: No Meds Allergies Allergy/AdvReac Type Severity Reaction Status Date / Time hydrochlorothiazide Allergy Intermediate restlessnes Verified 08/29/22 10:13 s amlodipine AdvReac Intermediate dizziness, Verified 08/29/22 10:13 tiredness Home Medications Medication Instructions Recorded Confirmed Last Taken Type lisinopril 40 mg tablet 40 mg PO DAILY 08/29/22 Unknown History Exam Exam Date and Time: September 03, 2022 1149 Pertinent Lab Results Pertinent Lab Results: Laboratory Tests 07/17/22 08/29/22 06:09 11:17 WBC 7.9 Hgb 12.8 D Hct 38.3 D Plt Count 410 H D Sodium 131 L Potassium 4.4 Chloride 105 Carbon Dioxide 21 L BUN 22 H Creatinine 0.87 Narrative Narrative: EKG 06/2022 Vent. Rate : 081 BPM ? ? Atrial Rate : 081 BPM ?? P-R Int : 124 ms? QRS Dur : 068 ms ? ? QT Int : 338 ms ? ? ? P-R-T Axes : 071 047 070 degrees ?? QTc Int : 392 ms ? Normal sinus rhythm Septal infarct , age undetermined Abnormal ECG When compared with ECG of 13-MAY-2022 11:42, No significant change was found ECHO 04/2022 Conclusions: - 1. Normal LV systolic function with mild LVH with grade 2? ? ? diastolic dysfunction? 2. Mildly dilated left atrium? 3. Moderate to severe aortic stenosis with valve area of about ? 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 4. Normal RV systolic pressure ? 5. No gross pericardial effusion ? Assessment and Plan Assessment Anesthesia Assessment: Chart Reviewed Final Anesthetic Review Family History of Problems with Anesthesia: No History of Problems with Anesthesia: No Documented by User: Amanda Yao MD 09/04/22 08:19 [facility] Past Medical History Medical History Aortic stenosis Congestive heart failure Dyslipidemia Essential hypertension Hyponatremia Hypothyroidism Impacted cerumen of right ear Osteoporosis Family History Family History Father No problems noted. Mother In good health Surgical History Surgical History History of breast biopsy History of colonoscopy History of esophagogastroduodenoscopy (EGD) Social History Social History Household Members: Spouse and Family Housing: House Do you presently have visiting nurse or other home services: No Alcohol intake: never Patient Tobacco Use Status: Former Tobacco user Quit Date: 4 months ago Tobacco use type: Cigarette Cigarettes Per Day: 2 e-Cigarette/Vaping Use: Never Used Second Hand Smoke Exposure: No Use of substances other than those prescribed or required for medical reasons: No Advance Directives: Yes Advance Directives on File: Yes Advance Directives Date on File: 05/15/22 service: No Current occupational status: disabled Cognitive needs: No Hearing needs: No Vision needs: No Meds Allergies Allergy/AdvReac Type Severity Reaction Status Date / Time hydrochlorothiazide Allergy Intermediate restlessnes Verified 08/29/22 10:13 s amlodipine AdvReac Intermediate dizziness, Verified 08/29/22 10:13 tiredness Home Medications Medication Instructions Recorded Confirmed Last Taken Type lisinopril 40 mg tablet 40 mg PO DAILY 08/29/22 Unknown History Exam Airway Mallampati Class: II TM Dist: >3cm Neck ROM: Full Denture: Upper and Lower Assessment and Plan Assessment Anesthesia Assessment: Anesthesia Plan Discussed Final Anesthetic Review NPO: Yes ASA Class: III Final Preanesthetic Review: No Changes in Pt Med Stat, Meds/Allgs Chart Reviewed, Consent Obtained/Reviewed and Anes Risks/Benef Reviewed Patient Risk: Intermediate Procedure Risk: Low Anesthetic Plan Anesthetic Plan: MAC: Disposition: Standard PACU
[2022-09-04 07:51] VITALS: BMI 18.3
--- NOTE | 2022-09-04 08:09 | MHC.SHP ---
Pre-Procedural Eval Section A Date of Service: 09/04/22 The patient is an INPATIENT: No Changes since office visit: Yes Patient answered all questions; No Cold of Flu in the past 2 weeks, No New Medical Problems and No Changes in Medication The History & Physical has been completed within 30 days and I have reviewed it.: Yes Section B Chief Complaint: Iron deficiency anemia secondary to blood loss Allergies: Allergies Allergy/AdvReac Type Severity Reaction Status Date / Time hydrochlorothiazide Allergy Intermediate restlessnes Verified 08/29/22 10:13 s amlodipine AdvReac Intermediate dizziness, Verified 08/29/22 10:13 tiredness Plan I have reviewed the history and physical and performed a pertinent physical examination on my patient. No changes have occurred unless specified. Time Spent With Patient Time: Total time managing care of this patient today ____ minutes.
[2022-09-04 08:10] VITALS: BP 186/69; PULSE 80; RESP 18; TEMP 36.3; O2SAT 99
[2022-09-04 08:13] VITALS: BMI 18.3
[2022-09-04] MEDS: Lactated Ringers 1,000 ML 50 ML IVCONT (08:14)
--- NOTE | 2022-09-04 08:40 | W.PM.OPN ---
Operative Note Operative Note Date of Service: 09/04/22 Narrative: FLEXIBLE TRANSORAL UPPER GASTROINTESTINAL ENDOSCOPY WITH BIOPSIES AND FLEXIBLE SIGMOIDOSCOPY TILL 25 CMS WITH BIOPSIES Pre-op diagnosis: Iron def anemia, FU of gastric ulcers and colitis Post-op diagnosis: Gastritis, gastric polyp, diverticulosis, hemorrhoids Endoscopist:Jolly Cheek MD Anesthesia:?MAC UPPER ENDOSCOPY Consent: Indications for the procedure and potential complications of bleeding, perforation, reaction to medications and missed diagnosis were discussed with the patient and informed consent was obtained. Instrument: Olympus GIF H 190 mid size upper endoscope Monitoring: Vital signs and clinical assessment, continuous EKG monitoring, Pulse oximetry, Carbon Dioxide monitoring and blood pressure monitoring were done throughout the procedure. Procedure: The patient was placed in the left lateral decubitis position and pre-procedure medications were administered and a bite block was placed. The endoscope was inserted into the mouth and advanced under direct vision to the third part of duodenum. A careful inspection was made as the upper endoscope was withdrawn including a retroflexed examination of the proximal stomach; Findings and interventions are described below. Findings: Larynx: Normal Esophagus: GE junction at 35 cms. No esophagitis or Rosales's. Stomach: Moderate patchy gastric antral erythema. Biopsies were obtained. Ulcers seen on past EGD healed completely. A 2-3 mm benign appearing polyp in the gastric body - biopsied. Grade 2 flap valve on retroflexed examination of the cardia. Duodenum: Normal bulb and descending duodenum Intervention: Biopsies as noted above FLEXIBLE SIGMOIDOSCOPY PROCEDURE NOTE Consent: Indications for the procedure and potential complications of bleeding, perforation, reaction to medications and missed diagnosis were discussed with the patient and informed consent was obtained. Instrument: Olympus GIF H 190 mid size upper endoscope Monitoring: Vital signs and clinical assessment, intermittent blood pressure monitoring, continuous EKG monitoring, Pulse oximetry and Carbon Dioxide monitoring were done throughout the procedure. Procedure: The patient was placed in the left lateral decubitis position and pre-procedure medications were administered. After a digital rectal examination of the ano-rectum, the video colonoscope was inserted into the rectum and advanced through the colon to the sigmoid colon at 25 cms. The colonoscope was slowly withdrawn in a retrograde panoramic fashion and the colon mucosa was carefully examined including a retroflexed view of the rectum. Findings and interventions are described below. Procedure Difficulty: : Without difficulty Findings: Sigmoid Colon: Severe diverticulosis with luminal narrowing Rectum: Normal Ano-rectum: Moderate internal hemorrhoids Colon preparation: Good Impression and Post Procedure Diagnosis: Endoscopy Findings: STOMACH: Gastritis and a small gastric polyp Ulcer seen on previous EGD have healed completely Colonoscopy Findings: No polyps were detected Colitis seen on previous colonoscopy appears to have healed completely. Random biopsies were obtained from the sigmoid colon Severe diverticulosis seen in the sigmoid colon Moderate hemorrhoids on retroflexed exam. Plan: Await pathology results Patient has an appointment on 11/01/22 in the GI Clinic with Clara Cheek M.D. Repeat Colonoscopy is not recommended given advanced age. Above findings were reviewed with the patient and gastric polyps and diverticulosis handouts were given in the discharge area BIOPSIES: A- ANTRUM BXS B- GASTRIC POLYP C- SIGMOID BXS? R/O COLITIS
[2022-09-04] MEDS: Sodium Phosphate,Mono-Dibasic 133 ML ENEMA PR (08:50)
--- NOTE | 2022-09-04 08:50 | PC.NURSE ---
Patient will have flex sigmoidoscopy today, fleets enema given
[2022-09-04 09:29] VITALS: BP 130/60; PULSE 72; RESP 14; TEMP 37.1; O2SAT 97
[2022-09-04 09:44] VITALS: BP 143/62; PULSE 70; RESP 16; TEMP 37.1; O2SAT 99
== END 2022-09-04 10:30 | disposition home or self-care (01) ==
PROVIDERS: PCP Internal Medicine; Visit Provider Internal Medicine Gastroenterology
PROC: 0DJ08ZZ Inspection of Upper Intestinal Tract, Via Natural or Artificial Opening Endoscopic (ICD-10-PCS; CPT 43235; principal; 2022-09-04 08:30)
DX: D50.0 Iron deficiency anemia secondary to blood loss (chronic) (principal); K57.30 Diverticulosis of large intestine without perforation or abscess without bleeding; K64.8 Other hemorrhoids; K29.50 Unspecified chronic gastritis without bleeding; K31.7 Polyp of stomach and duodenum; Z87.11 Personal history of peptic ulcer disease; I11.0 Hypertensive heart disease with heart failure; I50.9 Heart failure, unspecified; I35.0 Nonrheumatic aortic (valve) stenosis; E78.5 Hyperlipidemia, unspecified; E87.1 Hypo-osmolality and hyponatremia; E03.9 Hypothyroidism, unspecified; M81.0 Age-related osteoporosis without current pathological fracture; Z79.899 Other long term (current) drug therapy; Z88.8 Allergy status to other drugs, medicaments and biological substances; Z87.891 Personal history of nicotine dependence
CPT/HCPCS: 45331; 43239; 88305; 88342

== ENCOUNTER 2022-10-30 06:41 | Outpatient (REF) | payer MEDICARE, OTHER, SELFPAY ==
[2022-10-30 06:55] LABS: MANUAL DIFF FLAG NO
[2022-10-30 07:24] LABS: Basophils Absolute Auto 0.1 X10*3/uL (0.0-0.2); Basophils Percent Auto 0.9 % (0-2); Eosinophils Absolute Auto 0.3 X10*3/uL (0.0-0.4); Eosinophils Percent Auto 4.7 % (0-4); Hematocrit 39.5 % (37.0-47.0); Hemoglobin 13.4 g/dl (12.0-16.0); Imm Gran Abs Auto 0.02 X10*3/uL (0.00-0.03); Imm Gran Pct Auto 0.3 % (0.0-0.4); Lymphocytes Absolute Auto 1.5 X10*3/uL (1.2-4.9); Lymphocytes Percent Auto 23.3 % (20-40); Mean Corpuscular HGB Conc 33.9 g/dl (31.0-35.0); Mean Corpuscular Hemoglobin 30.4 pg (27.0-33.0); Mean Corpuscular Volume 89.6 fL (80.0-98.0); Mean Platelet Volume 8.5 fL (9.4-12.3); Monocytes Absolute Auto 0.6 X10*3/uL (0.1-1.2); Monocytes Percent Auto 9.5 % (2-11); Neutrophils Percent Auto 61.3 % (45-73); Platelet Count 331 X10*3/uL (160-400); Red Blood Count 4.41 X10*6/uL (4.20-5.50); Red Cell Distribution Width 14.9 % (11.0-16.0); White Blood Count 6.6 X10*3/uL (4.8-10.8)
[2022-10-30 07:57] LABS: B Type Natriuretic Peptide 37 pg/mL (<100)
[2022-10-30 08:04] LABS: Alanine Aminotransferase 29 U/L (0-31); Albumin Level 4.4 g/dL (3.5-5.0); Alkaline Phosphatase 95 U/L (39-117); Anion Gap 11 (12-20); Aspartate Amino Transferase 34 U/L (5-31); Bilirubin Total 0.4 mg/dL (0.0-1.0); Blood Urea Nitrogen 9 mg/dL (9-16); Calcium 9.9 mg/dL (8.4-10.2); Carbon Dioxide 30 mmol/L (22-29); Chloride 94 mmol/L (96-108); Cholesterol 153 mg/dL; Estimated Glomerular Filt Rate > 60; Glucose Fasting 101 mg/dL (60-99); Glucose Random 100 mg/dL (60-115); HDL Cholesterol 58 mg/dL; Iron 53 mcg/dL (30-160); LDL Cholesterol Calculated 77 mg/dl; Percent Iron Saturation 18 % (15-50); Potassium 4.3 mmol/L (3.3-5.1); Sodium 131 mmol/L (135-145); Total Iron Binding Capacity 297 mcg/dL (228-428); Total Protein 8.2 g/dL (6.5-8.0); Triglycerides 91 mg/dL; Unsaturated Iron Binding 244 ug/dL
[2022-10-30 08:22] LABS: Thyroid Stimulating Hormone 36.55 uIU/mL (0.32-4.0)
== END 2022-10-30 06:42 | disposition home or self-care (01) ==
LOC: HO.LAB 06:41
PROVIDERS: Nurse Practitioner Family; PCP Internal Medicine; Visit Provider Internal Medicine
DX: Z13.1 Encounter for screening for diabetes mellitus (principal); I50.9 Heart failure, unspecified; D64.9 Anemia, unspecified; E78.5 Hyperlipidemia, unspecified; E03.9 Hypothyroidism, unspecified
CPT/HCPCS: 36415; 80048; 80053; 80061; 83540; 83880; 84443; 85025

== ENCOUNTER → 2022-11-01 07:22 | Outpatient (BNVA) | payer MEDICARE, SELFPAY | PROVIDERS: PCP Internal Medicine; Visit Provider Internal Medicine Gastroenterology | DX: D50.0 Iron deficiency anemia secondary to blood loss (chronic) (principal); K25.9 Gastric ulcer, unspecified as acute or chronic, without hemorrhage or perforation | CPT/HCPCS: 99212 ==

== ENCOUNTER → 2022-11-22 07:48 | Outpatient (REF) | payer MEDICARE, SELFPAY | LOC: HO.CARD 07:48 | PROVIDERS: PCP Internal Medicine; Visit Provider Internal Medicine Cardiovascular Disease | DX: I35.0 Nonrheumatic aortic (valve) stenosis (principal) | CPT/HCPCS: 93306 ==

== ENCOUNTER 2022-12-27 06:28 | Outpatient (REF) | payer MEDICARE, SELFPAY ==
[2022-12-27 08:26] LABS: Thyroid Stimulating Hormone 0.21 uIU/mL (0.32-4.0)
[2022-12-27 09:24] LABS: Creatinine Urine 78.68 mg/dL
[2022-12-27 10:18] LABS: Osmolality Urine 380 mosm/kg (373-1093)
== END 2022-12-27 06:29 | disposition home or self-care (01) ==
LOC: HO.LAB 06:28
PROVIDERS: PCP Internal Medicine; Visit Provider Internal Medicine
DX: E87.1 Hypo-osmolality and hyponatremia (principal); E03.9 Hypothyroidism, unspecified
CPT/HCPCS: 36415; 83935; 84300; 84443

== ENCOUNTER 2023-01-01 07:51 | Outpatient (AMB) | payer MEDICARE, SELFPAY ==
[2023-01-01 07:54] VITALS: BP 140/78; PULSE 80; O2SAT 96; BMI 19.2
--- NOTE | 2023-01-01 07:54 | A.OFFPC_ITS ---
Vital Signs 01/01/23 07:54 01/01/23 08:28 Height 4 ft 11 in Weight 95 lb BMI 19.2 BP 140/78 H 138/80 Blood Pressure Location Lt brachial Lt brachial Position Sitting Sitting Pulse 80 Pulse Source Pulse Oximeter Pulse Oximetry (%) 96 Oxygen Delivery Method Room Air Intake Visit Reasons: Check Thyroid Chief Controller Tower Required: No Accompanied by: Self / Same As Patient Allergies hydrochlorothiazide Allergy (Intermediate, Verified 01/01/23 08:01) restlessness amlodipine Adverse Reaction (Intermediate, Verified 01/01/23 08:01) dizziness, tiredness Medication List - Last Reconciled 01/01/23 by Allegra Blum MD amlodipine 5 mg See Protocol PO DAILY 90 days atorvastatin 40 mg PO BEDTIME 90 days ferrous sulfate 325 mg PO Q OTHER DAY 90 days furosemide 20 mg See Protocol PO DAILY PRN 90 days levothyroxine 100 mcg PO DAILY 90 days mv,Ca,min-folic acid-vit K1 400-20 mcg (One-A-Day Women's 50 Plus) 1 tab PO DAILY 90 days omeprazole 20 mg PO BID PRN 90 days spironolactone 12.5 mg (1/2 x 25 mg) PO DAILY 90 days Tobacco use date assessed: 06/10/22 Fall risk assessment: No Falls in past year Last assessed Fall Risk: 01/01/23 Dental Screening Dental Screen Date: 01/01/23 Did you have a dental visit in the last 12 months?: No Did you have a dental problem in the last 6 months where you did not have access to dental care?: No Was dental information given to patient?: No HPI HPI Comments History of Present Illness Details This is an 82-year-old female with congestive heart failure in the setting of severe anemia and moderate aortic stenosis, hypothyroidism, hypertension and dyslipidemia that comes today for follow-up on TSH which is decreased therefore I have to decrease levothyroxine from 100 mcg to 88 mcg. She has not gain 5 lb in a week. Blood pressure has improved. On statins for cholesterol and lipid panel will be repeated in February. TSH will be repeated in 8 weeks. She denies any chest pain or shortness of breath. No leg swelling. Accompanied by daughter. [facility] Medical History LUCILLE (acute kidney injury) Aortic stenosis Congestive heart failure Dyslipidemia Essential hypertension Hyponatremia Hypothyroidism Impacted cerumen of right ear Osteoporosis Surgical History History of breast biopsy History of colonoscopy History of esophagogastroduodenoscopy (EGD) Family History Father No problems noted. Mother In good health Social History Household Members: Spouse and Family Housing: House Do you presently have visiting nurse or other home services: No Alcohol intake: never Patient Tobacco Use Status: Former Tobacco user Quit Date: 4 months ago Tobacco use type: Cigarette Cigarettes Per Day: 2 e-Cigarette/Vaping Use: Never Used Second Hand Smoke Exposure: No Advance Directives Date on File: 05/15/22 service: No Current occupational status: disabled Cognitive needs: No Hearing needs: No Vision needs: No Questionnaire PHQ-9 Over the last 2 weeks, how often have you been bothered by any of the following problems? 1. Little interest or pleasure in doing things: not at all 2. Feeling down, depressed, or hopeless: not at all 3. Trouble falling or staying asleep, or sleeping too much: not at all 4. Feeling tired or having little energy: not at all 5. Poor appetite or overeating: not at all 6. Feeling bad about yourself - or that you are a failure or have let yourself or your family down: not at all 7. Trouble concentrating on things, such as reading the newspaper or watching television: not at all 8. Moving or speaking so slowly that other people could have noticed. Or the opposite - being so fidgety or restless that you have been moving around a lot more than usual: not at all 9. Thoughts that you would be better off or of hurting yourself in some way: not at all Total score: 0 Depression Screening Interpretation: Negative 59409 - PHQ-9 Billing: Yes Source: Developed by Drs. Sanket Drew, Sanjuanita Lockhart, Dominick Klein and colleagues, with an educational hermelindo from [employer]. Thrive Questionnaire Date Thrive assessed: 06/10/22 AUDIT C Alcohol Use Questionnaire (AUDIT-C) 1. How often do you have a drink containing alcohol?: Never Total Score: 0 ZAID-7 AMB Questionnaire ZAID-7 Date ZAID - 7 assessed: 06/10/22 Source: Developed by Drs. Sanket Drew, Sanjuanita Lockhart, Dominick Klein and colleagues, with an educational hermelindo from [employer]. Review of Systems Const All systems reviewed & are unremarkable except as noted in HPI and below Eyes Reports no additional complaints, Denies change in vision and Denies other visual disturbances Card Denies chest pain at rest, Denies chest pain with activity, Denies edema, Denies irregular heart rhythm, Denies claudication, Denies dyspnea, Denies dyspnea on exertion, Denies orthopnea, Denies paroxysmal nocturnal dyspnea and Denies slow heart rate Resp Denies cough, Denies dyspnea and Denies dyspnea on exertion GI Denies abdominal pain, Denies change in bowel habits, Denies excessive flatus, Denies nausea and Denies vomiting Denies urinary incontinence, Denies urinary hesitancy and Denies urinary urgency Musc Denies abnormal gait, Denies atrophy, Denies deformity and Denies limited range of motion Skin/Breast Denies bleeding lesions, Denies changing lesions and Denies rash Neuro Denies abnormal gait and Denies lack of coordination Physical exam (Primary Care) Vital Signs: Last Vital Signs Pulse 80 01/01/23 07:54 BP 140/78 H 01/01/23 07:54 Pulse Ox 96 01/01/23 07:54 Oxygen Delivery Method Room Air 01/01/23 07:54 BMI result Body Mass Index 19.2 Tobacco/Smoking Status: Tobacco use Status Tobacco use date assessed 06/10/22 01/01/23 07:58 Patient Tobacco Use Status Former Tobacco user 01/01/23 07:58 Tobacco use type Cigarette 01/01/23 07:58 e-Cigarette/Vaping Use Never Used 01/01/23 07:58 PHQ-9: PHQ-9 Score PHQ-9: Total score 0 01/01/23 07:58 Depression Screening Interpretation: Negative Thrive Assessment: Date of Thrive Assessment Date Thrive assessed 06/10/22 01/01/23 07:58 Eyes General: appearance normal, both eyes and all related structures Eyelids: Yes eyelids normal Conjunctivae: conjunctivae normal Neck Neck: Yes normal visual inspection and Yes supple Resp Effort & Inspection: normal respiratory effort Auscultation: clear to auscultation bilaterally Cardio Jugular venous distension: no JVD Rate: regular rate Rhythm: regular rhythm Heart sounds: S1 normal heart sound present and S2 normal heart sound present Extrem General: Yes full ROM Assessment and Plan Assessment & Plan (1) Congestive heart failure: Code(s): I50.9 - Heart failure, unspecified Plan: Continue Aldactone. The goal is to not gain 5 lb in a week. (2) Hypothyroidism: Code(s): E03.9 - Hypothyroidism, unspecified Qualifiers: Hypothyroidism type: unspecified Qualified Code(s): E03.9 - Hypothyroidism, unspecified Plan: Decrease levothyroxine to 88 mcg and repeat TSH in 8 weeks. (3) Dyslipidemia: Code(s): E78.5 - Hyperlipidemia, unspecified Plan: Continue statins (4) Essential hypertension: Code(s): I10 - Essential (primary) hypertension Plan: Continue amlodipine and Aldactone. Blood pressure goal is equal or less than 130/80 Orders: Orders Thyroid Stimulating Hormone 8 Weeks E03.9 - Hypothyroidism, unspecified Medications: New levothyroxine 88 mcg PO DAILY 90 days 90 tabs 0RF Discontinued levothyroxine Discontinued Reason: Patient Completed Course 100 mcg PO DAILY 90 days 90 tabs 1RF E03.9 - Hypothyroidism, unspecified Coding Level of Care Code Est Pt Level 4 (20860) Diagnoses Congestive heart failure I50.9 Hypothyroidism E03.9 Hypothyroidism type: unspecified Dyslipidemia E78.5 Essential hypertension I10 Time Spent (min) 22
[2023-01-01 08:28] VITALS: BP 138/80
== END 2023-01-01 08:22 | disposition home or self-care (01) ==
PROVIDERS: PCP Internal Medicine; Visit Provider Internal Medicine
DX: I11.0 Hypertensive heart disease with heart failure (principal); I50.9 Heart failure, unspecified; E03.9 Hypothyroidism, unspecified; E78.5 Hyperlipidemia, unspecified
CPT/HCPCS: 99214

== ENCOUNTER 2023-05-02 07:21 | Outpatient (AMB) | payer MEDICARE, SELFPAY ==
--- NOTE | 2023-05-02 07:32 | A.OFFVIS_ITS ---
Intake Vital Signs 05/02/23 07:34 Height 4 ft 11 in Weight 94 lb BMI 19.0 BP 177/72 H Blood Pressure Location Lt brachial Position Sitting Pulse 94 Intake Visit Reasons: Anemia Intake Note: Patient follow up for Anemia. Patient denies any GI issues. [employer] Specialist Required: No Accompanied by: Daughter Allergies hydrochlorothiazide Allergy (Intermediate, Verified 05/02/23 07:37) restlessness amlodipine Adverse Reaction (Intermediate, Verified 05/02/23 07:37) dizziness, tiredness Medication List - Last Reconciled 05/02/23 by Clara Cheek MD amlodipine 5 mg See Protocol PO DAILY 90 days ascorbic acid (vitamin C) 500 mg PO DAILY 90 days atorvastatin 40 mg PO BEDTIME 90 days ferrous sulfate 325 mg PO Q OTHER DAY 90 days furosemide 20 mg See Protocol PO DAILY PRN 90 days levothyroxine 88 mcg PO DAILY 90 days mv,Ca,min-folic acid-vit K1 400-20 mcg (One-A-Day Women's 50 Plus) 1 tab PO DAILY 90 days omeprazole 20 mg PO BID PRN 90 days spironolactone 12.5 mg (1/2 x 25 mg) PO DAILY 90 days HPI Anemia HPI Details GI clinic visit for this 83 year old [place]ian-speaking female with chronic hyopnateremia, osteoporosis, HTN, hypothyroid, hld for FU after past hospitalization ?[place] [facility] with sob and le edema. ENDOSCOPIC STUDIES: 09/04/22 EGD AND FLEX SIG SHOWED: Endoscopy Findings: STOMACH:? Gastritis and a small gastric polyp (fundic gland polyp on bx) Ulcer seen on previous EGD have healed completely Gastric bx was negative for H Pylori Colonoscopy Findings: No polyps were detected Colitis seen on previous colonoscopy appears to have healed completely. Random biopsies were obtained from the sigmoid colon - normal Severe diverticulosis seen in the sigmoid colon Moderate hemorrhoids on retroflexed exam. Plan: Repeat Colonoscopy is not recommended given advanced age. 05/15/23 EGD AND COLON SHOWED: STOMACH:?Moderate diffuse gastric erythema with nodular appearing mucosa in the gastric body. Biopsies were obtained from the gastric body and antrum.? Two chronic appearing 10 to 12 mm clean based non-bleeding ulcers in the antrum - one was biopsied. DUODENUM: Normal - biopsied to check for celiac sprue Colonoscopy Findings: No polyps were detected. Scattered 5 to 8 mm aphthoid ulcers throughout the colon with normal intervening mucosa - random biopsies were obtained from the right and left colon - likely due to NSAID use versus IBD. Moderate to severe diverticulosis seen in the entire colon (left > right) Moderate hemorrhoids on retroflexed exam. Iron deficiency anemia likely due to chronic slow blood loss from gastric ulcers and aphthoid ulcers seen in the colon (worse in the right colon) Plan:? Repeat Colonoscopy not recommended due to advanced age (if colon biopsies are normal). Above findings were reviewed with the patient's daughter and PUD and handout was given in the discharge area.? Daughter was advised to stop Naproxen and increase Omeprazole to 20 mg twice daily. Transfuse 1 additonal unit of PRBC today and ok to discharge home tomorrow (if no additional cardiac pruett planned) if hct > 30 %.? Pt needs to start oral iron replacement. ADDENDUM:? BIOPSIES SHOWED: A.? Small bowel, biopsy:? Small intestinal mucosa within normal limits; negative for celiac disease. B.? Stomach, ulcer, biopsy:? Antral-type mucosa with moderate chronic active inflammation and regenerative changes consistent with sampling near an ulcer; no Helicobacter organisms seen. C.? Stomach, antrum, biopsy:? Antral-type mucosa with mild chronic, focally active, inflammation; no Helicobacter organisms seen. D.? Stomach, body, biopsy:? Oxyntic mucosa with moderate chronic inactive inflammation; no Helicobacter organisms seen. E.? Colon, right, biopsy:? Mildly active colitis. F.? Colon, left, biopsy:? Focally active colitis with crypt disarray. COMMENT:? There are some features of chronicity in the colon; however, fully- developed chronic injury is not identified. TODAY'S VISIT: Accompanied by her daughter who interpreted for the patient. Pt denies abdominal pain, diarrhea or constipation Appetite is good and denies heartburn or dysphagia PAST VISITS: Lab and EGD and colon results reviewed with the patient. Patient cc: fatigue, dizziness, due her Anemia, denies any other GI issues. Pt is feeling a little fuzzy with low energy. Taking iron pills 45 mg for 3 weeks now Appetite is good. Pt denies abdominal pain, diarrhea or constipation. Has a BM every other day - normal. Patient denies symptoms of heartburn, dysphagia, nausea, vomiting, change in appetite or weight.? Denies recent change in bowel habits, constipation, diarrhea, black stools or rectal bleeding. States her wt is at her baseline Patient has a hx of mild and last seen by Cardiology in 2018 She denies major pulmonary problems, loud snoring or sleep apnea (admits to disruptive sleep) Patient has a history of vertigo years ago - still feels dizzy if she moves quickly. Denies problems with anesthesia in the past. Patient admits to taking Aleve 2 pills a day for the past several years and denies being on chronic anticoagulation. Quit smoking in Apr, 2022 - previously smoked 1-2 cigarettes daily since she was in her 40s. Pt lives with her and an adult son and was independent with ADLs until 2 weeks ago. Patient denies known family history of colon polyps, colon cancer or other GI malignancies. Patient denies major cardiac or pulmonary problems, loud snoring or sleep apnea Denies problems with anesthesia in the past. Denies being on chronic anticoagulation. PAST GI HISTORY BY REVIEW OF MEDICAL RECORDS: 04/2022 PATIENT WAS SEEN IN CONSULTATION DURING HOSPITALIZATION History obtained with the help of her daughter and HCP,Jolly Yu. Patient reported difficulty with blood pressure control for past 2 months. over past 2 weeks has had progressive lower extremity edema and sob. Sob is present at rest, worse on exertion, positive orthopnea. Pt admits to symptoms of heartburn and denies abdominal pain, dysphagia, nausea, vomiting, change in appetite.? She generally eats very little.? Patient admits to taking Prilosec 20 mg once daily for GERD. She denies recent change in bowel habits, constipation, diarrhea, black stools or rectal bleeding. She had constipation 4 months ago and none recently. Pt denied coughing, sputum production, fever, chills, or CP. subjectively patient thinks she gained weight and more heavier. PAST EGD/COLONOSCOPY:??Pt reports having an EGD for GERD symptoms > 10 yrs ago She admits to having colonoscopies x 2 - one in her 60's and 2nd at age 76 yrs? Per patient - EGD and both colonoscopies were negative? (? at [facility] [place] Labs in ED showed severe microcytic anemia with hgb 4.6. and hct of 18.9, elevated BNP. She she was transfused 2 units of packed red blood cells overnight. Repeat H&H this morning was 8.8 and 29.3 Iron studies cw iron def anemia Stool occult blood was negative [facility] Medical History (Updated 03/07/23 @ 07:51 by Doreen Mares PA-C) LUCILLE (acute kidney injury) Congestive heart failure Aortic stenosis Essential hypertension Dyslipidemia Hypothyroidism Iron deficiency anemia due to chronic blood loss Osteoporosis (~2003) Hyponatremia Surgical History History of esophagogastroduodenoscopy (EGD) History of colonoscopy History of breast biopsy Family History Father No problems noted. Mother In good health Social History Household Members: Spouse and Family Housing: House Do you presently have visiting nurse or other home services: No Alcohol intake: never Patient Tobacco Use Status: Former Tobacco user Quit Date: 4 months ago Tobacco use type: Cigarette Cigarettes Per Day: 2 e-Cigarette/Vaping Use: Never Used Second Hand Smoke Exposure: No Advance Directives Date on File: 05/15/22 service: No Current occupational status: disabled Cognitive needs: No Hearing needs: No Vision needs: No Review of Systems Const All systems reviewed & are unremarkable except as noted in HPI and below Physical Exam Vital Signs: Last Vital Signs Pulse 94 05/02/23 07:34 BP 177/72 H 05/02/23 07:34 BMI result Body Mass Index 19.0 Const General: healthy appearing and no acute distress Nutritional Appearance: underweight Orientation/consciousness: patient oriented x3 Limitations: language barrier HEENT Head: Yes normal to inspection Ears: hearing grossly normal bilaterally Eyes Sclerae: sclerae normal Pupils: Equal, round and reactive pupils present Neck Neck: Yes normal visual inspection Chest Chest palpation & inspection: normal inspection of the chest Resp Effort & Inspection: normal respiratory effort Auscultation: clear to auscultation bilaterally Cardio Palpation: normal PMI Rate: regular rate Rhythm: regular rhythm Heart sounds: S1 normal heart sound present, S2 normal heart sound present and no murmurs GI Palpation (GI): Soft to palpation, nontender and No hepatosplenomegaly present Auscultation: normal bowel sounds Rectal Exam - Female: deferred Skin General skin exam: no rashes or lesions noted Neuro General: patient oriented x3, gait normal and moves all extremities Cranial nerves: Yes Equal, round and reactive pupils present Psych Appearance: grossly normal Mental Status: mental status grossly normal Assessment & Plan Assessment & Plan (1) Iron deficiency anemia due to chronic blood loss: Code(s): D50.0 - Iron deficiency anemia secondary to blood loss (chronic) Plan 83 year old [place]ian-speaking female [place] [facility] [place] admitted with severe microcytic anemia (hgb 4.6. and hct of 18.9). Iron studies cw iron def anemia.? Stool occult blood was negative EGD showed?two chronic appearing 10 to 12 mm clean based non-bleeding ulcers in the antrum. Colonoscopy showed?Scattered 5 to 8 mm aphthoid ulcers throughout the colon with normal intervening mucosa - random biopsies were obtained from the right and left colon - likely due to NSAID use versus IBD, moderate to severe diverticulosis seen in the entire colon (left > right) Iron deficiency anemia likely due to chronic slow blood loss from gastric ulcers and aphthoid ulcers seen in the colon (worse in the right colon) 08/2022 EGD (FU of gastric ulcers) and a flexible sigmoidoscopy (FU of colitis) was performed and findings as noted above 11/01/22 NIGEL - resolved, pt advised to decrease iron to every other day and avoid NSAIDS. 05/02/23 Pt advised to decrease Omeprazole to once daily (instead of BID) and continue iron every other day (Daughter reports pt is a picky eater which may be contributing to iron def) Repeat labs for FU of NIGEL FU in 6 months Orders: Orders Ferritin Today D50.0 - Iron deficiency anemia secondary to blood loss (chronic) Medications: Changed From omeprazole 20 mg PO BID 90 days PRN 180 caps 1RF heartburn E03.9 - Hypothyroidism, unspecified To omeprazole 20 mg PO DAILY 90 days PRN 90 caps 1RF heartburn E03.9 - Hypothyroidism, unspecified Coding Level of Care Code Est Pt Level 3 (02232) Diagnoses Iron deficiency anemia due to chronic blood loss D50.0 Time Spent (min) 18
[2023-05-02 07:34] VITALS: BP 177/72; PULSE 94; BMI 19.0
== END 2023-05-02 09:09 | disposition home or self-care (01) ==
PROVIDERS: PCP Internal Medicine; Visit Provider Internal Medicine Gastroenterology
DX: D50.0 Iron deficiency anemia secondary to blood loss (chronic) (principal)
CPT/HCPCS: 99213

== ENCOUNTER → 2023-05-02 07:21 | Outpatient (BNVA) | payer MEDICARE, SELFPAY | PROVIDERS: PCP Internal Medicine; Visit Provider Internal Medicine Gastroenterology | DX: D50.0 Iron deficiency anemia secondary to blood loss (chronic) (principal) | CPT/HCPCS: 99212 ==

== ENCOUNTER 2023-05-05 06:34 | Outpatient (REF) | payer MEDICARE, SELFPAY ==
[2023-05-05 06:47] LABS: MANUAL DIFF FLAG NO
[2023-05-05 07:21] LABS: Basophils Absolute Auto 0.1 X10*3/uL (0.0-0.2); Basophils Percent Auto 0.8 % (0-2); Eosinophils Absolute Auto 0.2 X10*3/uL (0.0-0.4); Hematocrit 39.7 % (37.0-47.0); Hemoglobin 12.8 g/dl (12.0-16.0); Imm Gran Abs Auto 0.02 X10*3/uL (0.00-0.03); Imm Gran Pct Auto 0.3 % (0.0-0.4); Lymphocytes Absolute Auto 1.3 X10*3/uL (1.2-4.9); Lymphocytes Percent Auto 21.3 % (20-40); Mean Corpuscular HGB Conc 32.2 g/dl (31.0-35.0); Mean Corpuscular Hemoglobin 29.1 pg (27.0-33.0); Mean Corpuscular Volume 90.2 fL (80.0-98.0); Mean Platelet Volume 9.1 fL (9.4-12.3); Monocytes Absolute Auto 0.4 X10*3/uL (0.1-1.2); Monocytes Percent Auto 6.8 % (2-11); Neutrophils Percent Auto 66.8 % (45-73); Platelet Count 404 X10*3/uL (160-400); Red Cell Distribution Width 13.2 % (11.0-16.0); White Blood Count 6.1 X10*3/uL (4.8-10.8)
[2023-05-05 07:42] LABS: Osmolality, Serum 291 mosm/kg (281-305)
[2023-05-05 07:44] LABS: Anion Gap 12 (12-20); Blood Urea Nitrogen 8 mg/dL (9-16); Carbon Dioxide 27 mmol/L (22-29); Chloride 100 mmol/L (96-108); Estimated Glomerular Filt Rate > 60; Glucose Fasting 101 mg/dL (60-99); Potassium 4.2 mmol/L (3.3-5.1); Sodium 135 mmol/L (135-145)
[2023-05-05 07:45] LABS: Alanine Aminotransferase 35 U/L (0-31); Albumin Level 4.1 g/dL (3.5-5.0); Alkaline Phosphatase 114 U/L (39-117); Aspartate Amino Transferase 38 U/L (5-31); Bilirubin Total 0.5 mg/dL (0.0-1.0); Calcium 10.1 mg/dL (8.4-10.2); Cholesterol 133 mg/dL (<200); HDL Cholesterol 46 mg/dL (>40); Iron 85 mcg/dL (30-160); LDL Cholesterol Calculated 58 mg/dL (<100); Percent Iron Saturation 30 % (15-50); Total Iron Binding Capacity 287 mcg/dL (228-428); Total Protein 8.6 g/dL (6.5-8.0); Triglycerides 145 mg/dL (<150); Unsaturated Iron Binding 202 ug/dL
[2023-05-05 08:00] LABS: Thyroid Stimulating Hormone 0.22 uIU/mL (0.32-4.0); Vitamin D 25-OH Total 45.1 ng/mL (>30)
[2023-05-05 08:39] LABS: Osmolality Urine 389 mosm/kg (373-1093)
[2023-05-08 21:13] LABS: NT-proBNP 170 pg/mL (<450)
== END 2023-05-05 06:35 | disposition home or self-care (01) ==
LOC: HO.LAB 06:34
PROVIDERS: PCP Internal Medicine; Visit Provider Internal Medicine Gastroenterology
DX: D64.9 Anemia, unspecified (principal); E87.1 Hypo-osmolality and hyponatremia; I50.9 Heart failure, unspecified; E55.9 Vitamin D deficiency, unspecified; E03.9 Hypothyroidism, unspecified; E78.5 Hyperlipidemia, unspecified
CPT/HCPCS: 36415; 80053; 80061; 82306; 83540; 83880; 83930; 83935; 84300; 84443; 85025

== ENCOUNTER 2023-07-11 06:35 | Outpatient (REF) | payer MEDICARE, SELFPAY ==
[2023-07-11 08:13] LABS: Thyroid Stimulating Hormone 1.89 uIU/mL (0.32-4.0)
== END 2023-07-11 06:36 | disposition home or self-care (01) ==
LOC: HO.LAB 06:35
PROVIDERS: PCP Internal Medicine; Visit Provider Internal Medicine
DX: E03.9 Hypothyroidism, unspecified (principal)
CPT/HCPCS: 36415; 84443

== ENCOUNTER 2023-07-23 08:26 | Outpatient (AMB) | payer MEDICARE, SELFPAY ==
[2023-07-23 08:43] VITALS: BP 157/60; PULSE 79; BMI 20.9
--- NOTE | 2023-07-23 08:43 | MHC.OFFVIS ---
Intake Vital Signs 07/23/23 08:43 Height 4 ft 11 in Weight 103 lb 9.876 oz BMI 20.9 BP 157/60 H Blood Pressure Location Lt brachial Position Sitting Pulse 79 Pulse Source Monitor Intake Visit Reasons: f/u after Echo Intake Note: follow up on ECHO with EKG PT feels good Children'S Aide Required: Yes Children'S Aide Name: Daughter Allergies hydrochlorothiazide Allergy (Intermediate, Verified 05/02/23 07:37) restlessness amlodipine Adverse Reaction (Intermediate, Verified 05/02/23 07:37) dizziness, tiredness Medication List - Last Reconciled 07/23/23 by Amanuel Hitchcock MD amlodipine 5 mg See Protocol PO DAILY 90 days ascorbic acid (vitamin C) 500 mg PO DAILY 90 days atorvastatin 40 mg PO BEDTIME 90 days ferrous sulfate 325 mg PO Q OTHER DAY 90 days furosemide 20 mg See Protocol PO DAILY PRN 90 days levothyroxine 75 mcg PO DAILY 90 days mv,Ca,min-folic acid-vit K1 400-20 mcg (One-A-Day Women's 50 Plus) 1 tab PO DAILY 90 days omeprazole 20 mg PO DAILY PRN 90 days spironolactone 12.5 mg (1/2 x 25 mg) PO DAILY 90 days HPI HPI Comments History of Present Illness Details Carly comes for follow-up. History was obtained with help of the daughter, they declined a commodity loan clerk. Patient says she has been doing very well. She has no signs or symptoms of heart failure. She has lot of energy and can do her routine activity without limitations. Denies orthopnea, PND, leg edema. Currently on Lasix on every day basis. Denies any exertional chest pain or lightheadedness. Her iron deficiency anemia has improved significantly. A blood pressure is well controlled. She is taking all her medications. She denies any palpitations, lightheadedness, syncope. [facility] Medical History LUCILLE (acute kidney injury) Congestive heart failure Aortic stenosis Essential hypertension Dyslipidemia Hypothyroidism Iron deficiency anemia due to chronic blood loss Osteoporosis (~2003) Hyponatremia Surgical History History of esophagogastroduodenoscopy (EGD) History of colonoscopy History of breast biopsy Family History Father No problems noted. Mother In good health Social History Household Members: Spouse and Family Housing: House Do you presently have visiting nurse or other home services: No Alcohol intake: never Patient Tobacco Use Status: Former Tobacco user Quit Date: 4 months ago Tobacco use type: Cigarette Cigarettes Per Day: 2 e-Cigarette/Vaping Use: Never Used Second Hand Smoke Exposure: No Advance Directives Date on File: 05/15/22 service: No Current occupational status: disabled Cognitive needs: No Hearing needs: No Vision needs: No Review of Systems Const Denies weakness ENT Denies dizziness Card Denies chest pain, Denies chest pain with activity, Denies syncope, Denies rapid heart rate, Denies pedal edema, Denies edema, Denies leg edema, Denies lightheadedness, Denies palpitations, Denies dyspnea, Denies dyspnea on exertion and Denies orthopnea Resp Denies cough, Denies dyspnea and Denies dyspnea on exertion GI Denies hematochezia and Denies change in stool character Musc Denies abnormal gait, Denies muscle cramps, Denies muscle weakness, Denies numbness, Denies radiating pain into limb and Denies tingling Neuro Denies abnormal gait, Denies dizziness, Denies syncope, Denies numbness, Denies tingling and Denies weakness Endo Denies palpitations Physical Exam Vital Signs: Last Vital Signs Pulse 79 07/23/23 08:43 BP 157/60 H 07/23/23 08:43 BMI result Body Mass Index 20.9 Const General: cooperative, comfortable, no acute distress, alert and awake Nutritional Appearance: thin Orientation/consciousness: patient oriented x3 Limitations: no limitations Neck Neck: Yes trachea midline, Yes supple and Yes no JVD Resp Effort & Inspection: normal respiratory effort Auscultation: clear to auscultation bilaterally Cardio Jugular venous distension: no JVD Palpation: normal PMI Rate: regular rate Rhythm: regular rhythm Heart sounds: S1 normal heart sound present, S2 normal heart sound present and Murmur heart sound present systolic late, decrescendo and crescendo GI Auscultation: normal bowel sounds Skin General skin exam: no rashes or lesions noted and ecchymosis Neuro General: patient oriented x3 and no focal motor deficits Extrem General: Yes no clubbing, cyanosis or edema Psych Appearance: grossly normal Office Procedures EKG Details: EKG shows normal sinus rhythm with incomplete right bundle-branch block with septal QS pattern. [id number]-Ynclsenzydjuolkyr, Complete Assessment & Plan Assessment & Plan (1) Congestive heart failure: Code(s): I50.9 - Heart failure, unspecified Plan: Congestive heart failure in the setting of severe anemia which was eventually diagnosed to be iron deficiency anemia. She has done very well with correction of anemia and normal hemoglobin. Clinically euvolemic and well compensated. NYHA class 1 symptoms. Advised to lower Lasix to every other day and call me back in 2 weeks. Signs and symptoms of heart failure were discussed. Daily weight monitoring avoidance of salt loading was discussed. Continue spironolactone therapy for neurohormonal modulation. If in 2 weeks she has no further evidence of fluid overload will discuss to discontinue Lasix and use it on a p.r.n. basis. Continue aggressive blood pressure control which is currently well optimized. Will follow-up echocardiogram near future, see below. (2) Aortic stenosis: Code(s): I35.0 - Nonrheumatic aortic (valve) stenosis Plan: Aortic stenosis which clinically appears to be moderately severe. Will follow-up echocardiogram in near future. Continue aggressive risk factor modification. Continue statin therapy with target goal LDL less than 70 mg/dL. Blood pressure is well optimized. If GI is okay should restart low-dose aspirin therapy to reduce neurologic complications. Will follow up in the clinic in 6 months time, sooner p.r.n.. Thank you for allowing me to partake in her care Medications: Changed From furosemide 20 mg See Protocol PO DAILY 90 days PRN 90 tabs 1RF weight gain I35.0 - Nonrheumatic aortic (valve) stenosis To furosemide 20 mg See Protocol PO Q OTHER DAY 90 tabs 1RF weight gain 90 days I35.0 - Nonrheumatic aortic (valve) stenosis Coding Level of Care Code Est Pt Level 4 (41704) Diagnoses Congestive heart failure I50.9 Aortic stenosis I35.0 CPT Codes EKG - CPT: 93505-[id number], Complete ([id number])
== END 2023-07-23 09:17 | disposition home or self-care (01) ==
PROVIDERS: PCP Internal Medicine; Visit Provider Internal Medicine Cardiovascular Disease
DX: I50.9 Heart failure, unspecified (principal); I35.0 Nonrheumatic aortic (valve) stenosis
CPT/HCPCS: 93010; 99214

== ENCOUNTER → 2023-07-23 08:26 | Outpatient (BNVA) | payer MEDICARE, SELFPAY | PROVIDERS: PCP Internal Medicine; Visit Provider Internal Medicine Cardiovascular Disease | DX: I50.9 Heart failure, unspecified (principal); I35.0 Nonrheumatic aortic (valve) stenosis | CPT/HCPCS: 93005; 99212 ==

== ENCOUNTER 2024-04-19 06:30 | Outpatient (REF) | payer MEDICARE, SELFPAY ==
[2024-04-19 06:57] LABS: MANUAL DIFF FLAG NO
[2024-04-19 06:59] LABS: Basophils Absolute Auto 0.1 X10*3/uL (0.0-0.2); Basophils Percent Auto 0.8 % (0-2); Eosinophils Absolute Auto 0.2 X10*3/uL (0.0-0.4); Eosinophils Percent Auto 2.5 % (0-4); Hematocrit 40.7 % (37.0-47.0); Hemoglobin 13.7 g/dl (12.0-16.0); Imm Gran Abs Auto 0.05 X10*3/uL (0.00-0.03); Imm Gran Pct Auto 0.6 % (0.0-0.4); Lymphocytes Absolute Auto 1.3 X10*3/uL (1.2-4.9); Lymphocytes Percent Auto 16.7 % (20-40); Mean Corpuscular HGB Conc 33.7 g/dl (31.0-35.0); Mean Corpuscular Hemoglobin 31.1 pg (27.0-33.0); Mean Corpuscular Volume 92.3 fL (80.0-98.0); Mean Platelet Volume 8.7 fL (9.4-12.3); Monocytes Absolute Auto 0.4 X10*3/uL (0.1-1.2); Monocytes Percent Auto 5.4 % (2-11); Neutrophils Absolute Auto 5.7 x10*3/uL (2.0-8.3); Platelet Count 319 X10*3/uL (160-400); Red Blood Count 4.41 X10*6/uL (4.20-5.50); Red Cell Distribution Width 12.8 % (11.0-16.0); White Blood Count 7.7 X10*3/uL (4.8-10.8)
[2024-04-19 07:23] LABS: Alanine Aminotransferase 52 U/L (0-31); Albumin Level 4.4 g/dL (3.5-5.0); Alkaline Phosphatase 94 U/L (39-117); Anion Gap 12 (12-20); Aspartate Amino Transferase 46 U/L (5-31); Bilirubin Total 0.4 mg/dL (0.0-1.0); Blood Urea Nitrogen 13 mg/dL (9-16); Calcium 10.3 mg/dL (8.4-10.2); Carbon Dioxide 27 mmol/L (22-29); Chloride 102 mmol/L (96-108); Cholesterol 168 mg/dL (<200); Estimated Glomerular Filt Rate > 60; Glucose Fasting 113 mg/dL (60-99); HDL Cholesterol 49 mg/dL (>40); Iron 104 mcg/dL (30-160); LDL Cholesterol Calculated 82 mg/dL (<100); Percent Iron Saturation 33 % (15-50); Potassium 4.4 mmol/L (3.3-5.1); Sodium 137 mmol/L (135-145); Total Iron Binding Capacity 311 mcg/dL (228-428); Total Protein 8.3 g/dL (6.5-8.0); Triglycerides 185 mg/dL (<150); Unsaturated Iron Binding 207 ug/dL
[2024-04-19 07:37] LABS: Ferritin 30 ng/mL (10-250); Thyroid Stimulating Hormone 4.87 uIU/mL (0.32-4.0)
[2024-04-22 21:59] LABS: NT-proBNP 168 pg/mL (<450)
== END 2024-04-19 06:31 | disposition home or self-care (01) ==
LOC: HO.LAB 06:30
PROVIDERS: Internal Medicine Gastroenterology; PCP Internal Medicine; Visit Provider Internal Medicine
DX: E78.5 Hyperlipidemia, unspecified (principal); D50.0 Iron deficiency anemia secondary to blood loss (chronic); D64.9 Anemia, unspecified; E03.9 Hypothyroidism, unspecified; I50.9 Heart failure, unspecified
CPT/HCPCS: 36415; 80053; 80061; 82728; 83540; 83880; 84443; 85025

== ENCOUNTER 2024-04-21 07:42 | Outpatient (AMB) | payer MEDICARE, SELFPAY ==
[2024-04-21 07:45] VITALS: BP 172/66; BMI 21.4
--- NOTE | 2024-04-21 07:45 | MHC.PC.OV ---
Vital Signs 04/21/24 07:45 Height 4 ft 11 in Weight 106 lb BMI 21.4 BP 172/66 H Blood Pressure Location Lt brachial Position Sitting Intake Visit Reasons: No Visit Reason Listed:Booked on Portal by Pt Distribution Coordinator Required: No Accompanied by: Daughter Allergies hydrochlorothiazide Allergy (Intermediate, Verified 04/21/24 07:56) restlessness amlodipine Adverse Reaction (Intermediate, Verified 04/21/24 07:56) dizziness, tiredness Medication List - Last Reconciled 04/21/24 by Allegra Blum MD amlodipine 5 mg See Protocol PO DAILY 90 days ascorbic acid (vitamin C) 500 mg PO DAILY 90 days atorvastatin 40 mg PO BEDTIME 90 days ferrous sulfate 325 mg PO Q OTHER DAY 90 days furosemide 20 mg See Protocol PO Q OTHER DAY 90 days levothyroxine 75 mcg PO DAILY 90 days mv,Ca,min-folic acid-vit K1 400-20 mcg (One-A-Day Women's 50 Plus) 1 tab PO DAILY 90 days omeprazole 20 mg PO DAILY PRN 90 days spironolactone 12.5 mg (1/2 x 25 mg) PO DAILY 90 days Tobacco use date assessed: 04/21/24 Fall risk assessment: No Falls in past year Last assessed Fall Risk: 04/21/24 Dental Screening Dental Screen Date: 04/21/24 Did you have a dental visit in the last 12 months?: No Did you have a dental problem in the last 6 months where you did not have access to dental care?: No Was dental information given to patient?: Patient has dentist HPI HPI Comments History of Present Illness Details The patient is an 84-year-old female presenting with a follow-up for blood pressure management and chronic condition monitoring. She has a history of essential hypertension, typically well-controlled but noted to be high at this visit. The patient is currently on 5 mg amlodipine, which has been tolerated without significant side effects. Previously attempted hydrochlorothiazide caused restlessness, while amlodipine initially resulted in fatigue and dizziness, which subsided. Hypercholesterolemia is managed with atorvastatin 40 mg at night, showing good control with a recent lab showing total cholesterol at 168 mg/dL. The patient has a resolved history of anemia, previously attributed to dietary insufficiency and an ulcer, with hemoglobin levels recently increased to 13.7 g/dL. As a result, her iron supplementation schedule is being adjusted from every other day to once weekly to prevent hyperviscosity risks. She has hypothyroidism with autoimmune thyroiditis, currently on levothyroxine 75 mcg, which is under consideration for dose adjustment due to TSH levels at 4.8, slightly higher than normal. The management involves regular reassessment, with previous dose titrations from 100 mcg reducing over time as needed. Other chronic issues include prediabetes, for which she has been counseled on dietary changes emphasizing protein intake and reducing sweets. She has moderate aortic stenosis with a stable condition as per the last echocardiogram, for which she will likely need follow-up imaging next summer. There is no family history of diabetes, and her lifestyle reflects an avoidance of sugars. [facility] Medical History [place] (acute kidney injury) Congestive heart failure Aortic stenosis Essential hypertension Dyslipidemia Hypothyroidism Iron deficiency anemia due to chronic blood loss Osteoporosis (~2003) Hyponatremia Surgical History History of esophagogastroduodenoscopy (EGD) History of colonoscopy History of breast biopsy Family History Father No problems noted. Mother In good health Social History Household Members: Spouse and Family Housing: House Do you presently have visiting nurse or other home services: No Alcohol intake: never Patient Tobacco Use Status: Former Tobacco user Tobacco use type: Cigarette Cigarettes Per Day: 2 e-Cigarette/Vaping Use: Never Used Second Hand Smoke Exposure: No Advance Directives Date on File: 05/15/22 service: No Current occupational status: disabled Cognitive needs: No Hearing needs: No Vision needs: No Questionnaire PHQ-9 Over the last 2 weeks, how often have you been bothered by any of the following problems? 1. Little interest or pleasure in doing things: not at all 2. Feeling down, depressed, or hopeless: not at all 3. Trouble falling or staying asleep, or sleeping too much: not at all 4. Feeling tired or having little energy: not at all 5. Poor appetite or overeating: not at all 6. Feeling bad about yourself - or that you are a failure or have let yourself or your family down: not at all 7. Trouble concentrating on things, such as reading the newspaper or watching television: not at all 8. Moving or speaking so slowly that other people could have noticed. Or the opposite - being so fidgety or restless that you have been moving around a lot more than usual: not at all 9. Thoughts that you would be better off or of hurting yourself in some way: not at all Total score: 0 Depression Screening Interpretation: Negative Depression Screening Done: Yes 53563 - PHQ-9 Billing: Yes Source: Developed by Drs. Sanket Drew, Sanjuanita Lockhart, Dominick Klein and colleagues, with an educational hermelindo from Location. Thrive Questionnaire Date Thrive assessed: 04/21/24 I am a: Patient What is your living situation today?: I have a steady place to live Within the past 12 months, did the food you bought not last and you didn't have the money to get more?: Never true Within the past 12 months, did you worry whether your food would run out before you got money to buy more?: Never true Do you have trouble paying for medicines?: No Do you have trouble getting transportation to medical appointments?: No Do you have trouble paying your heating and electricity bill?: No Do you have trouble taking care of your child, family member or friend?: No Do you have trouble with day-to-day activities such as bathing, preparing meals, shopping, managing finances, etc.?: No Are you currently unemployed and looking for a job?: No Are you interested in more education?: No Please select the resources that you would like help with: None Currently or been in a relationship where the following occur: No concerns reported THRIVE Score: 0 AUDIT C Alcohol Use Questionnaire (AUDIT-C) 1. How often do you have a drink containing alcohol?: Never Total Score: 0 ZAID-7 AMB Questionnaire ZAID-7 Date ZAID - 7 assessed: 04/21/24 Feeling nervous, anxious, or on edge: 0 = Not at all Not being able to stop or control worryin = Not at all Worrying too much about different things: 0 = Not at all Trouble relaxin = Not at all Being so restless that it is hard to sit still: 0 = Not at all Becoming easily annoyed or irritable: 0 = Not at all Feeling afraid as if something awful might happen: 0 = Not at all Total ZAID-7 score (0-4 normal; 5-9 mild; 10-14 moderate; 15-21 severe): 0 Source: Developed by Drs. Sanket Drew, Sanjuanita Lockhart, Dominick Klein and colleagues, with an educational hermelindo from Location. ZAID-7 Assessment Billing ZAID-7 Assessment Tool: ZAID-7 Assessment 20858 Review of Systems Const All systems reviewed & are unremarkable except as noted in HPI and below Card Denies chest pain at rest, Denies chest pain with activity, Denies edema, Denies irregular heart rhythm, Denies claudication, Denies dyspnea, Denies dyspnea on exertion, Denies orthopnea, Denies paroxysmal nocturnal dyspnea and Denies slow heart rate Resp Denies cough, Denies dyspnea and Denies dyspnea on exertion GI Denies abdominal pain, Denies change in bowel habits, Denies excessive flatus, Denies nausea and Denies vomiting Neuro Denies behavioral changes and Denies lack of coordination Psych Denies behavioral changes Physical exam (Primary Care) Vital Signs: Last Vital Signs BP 172/66 H 04/21/24 07:45 BMI result Body Mass Index 21.4 Tobacco/Smoking Status: Tobacco use Status Tobacco use date assessed 04/21/24 04/21/24 07:50 Patient Tobacco Use Status Former Tobacco user 04/21/24 07:50 Tobacco use type Cigarette 04/21/24 07:50 e-Cigarette/Vaping Use Never Used 04/21/24 07:50 PHQ-9: PHQ-9 Score PHQ-9: Total score 0 04/21/24 12:38 Depression Screening Interpretation: Negative Thrive Assessment: Date of Thrive Assessment Date Thrive assessed 04/21/24 04/21/24 07:50 Currently or been in a relationship where the following occur: No concerns reported Resp Effort & Inspection: normal respiratory effort Auscultation: clear to auscultation bilaterally Cardio Jugular venous distension: no JVD Rate: regular rate Rhythm: regular rhythm Heart sounds: Murmur heart sound present systolic Extrem General: Yes full ROM Office Procedures Flu Questionnaire Does the patient have a severe egg allergy?: No Does the patient have severe life threatening allergies?: No Does the patient have a fever or illness today?: No Has the patient ever had Guillain-[place] Syndrome?: No Has the patient ever had any past reaction to a flu shot?: No Immunizations Fluarix Triv [id number] (PF) 45 mcg (15 mcg x 3)/0.5 mL IM syringe Performing Provider: Allegra Blum MD [facility] Administered by: RUDY Garcia on 04/21/24 08:23 Dose Route Admin Location Dispensed Lot Number Expiration Date NDC [employer] 0.5 mL IM Left Deltoid 0.5 mL [id number] 11/15/24 [id number] APSX VIS Given Date VIS Provided VIS Publication Date 04/21/24 Single Vaccine 20 Eligibility Eligibility Date Funding Source Not [facility] Eligible 04/21/24 Private Coding Level of Care Code Est Pt Level 4 (84014) Complex EM visit Add On G2211 Diagnoses Essential hypertension I10 Dyslipidemia E78.5 Hypothyroidism, unspecified type E03.9 Hypothyroidism type: unspecified Impaired glucose tolerance R73.02 Iron deficiency anemia due to chronic blood loss D50.0 Aortic stenosis I35.0 Additional Codes ZAID-7 Assessment Billing - ZAID-7 Assessment Tool: ZAID-7 Assessment 85596 ([id number]) PHQ-9 - 71988 - PHQ-9 Billing: Yes ([id number]) Time Spent (min) 25 Assessment & Plan Assessment & Plan (1) Essential hypertension: Code(s): I10 - Essential (primary) hypertension Category: Medical (2) Dyslipidemia: Code(s): E78.5 - Hyperlipidemia, unspecified Category: Medical (3) Hypothyroidism: Code(s): E03.9 - Hypothyroidism, unspecified Category: Medical Qualifiers: Hypothyroidism type: unspecified Qualified Code(s): E03.9 - Hypothyroidism, unspecified (4) Impaired glucose tolerance: Code(s): R73.02 - Impaired glucose tolerance (oral) Category: Medical (5) Iron deficiency anemia due to chronic blood loss: Code(s): D50.0 - Iron deficiency anemia secondary to blood loss (chronic) Category: Medical (6) Aortic stenosis: Code(s): I35.0 - Nonrheumatic aortic (valve) stenosis Category: Medical Plan - Essential Hypertension: Continue current antihypertensive therapy with amlodipine. Monitor blood pressure closely with home recordings. - Hypercholesterolemia: Continue atorvastatin therapy, monitor liver function due to mild enzyme elevations. - Hypothyroidism: Increase levothyroxine to 88 mcg once daily, follow-up TSH in six weeks for reevaluation. - Anemia: Reduce iron supplementation to once a week, monitor hemoglobin and adjust as necessary. - Prediabetes: Reinforce dietary modifications focusing on increased protein intake and carbohydrate management. - Autoimmune Thyroiditis: Monitor thyroid levels given variable control, adjust dosing based on regular lab results. - Moderate Aortic Stenosis: Plan for repeat echocardiogram in approximately one year unless symptoms develop sooner. Patient was informed and verbally consented to the use of an ambient scribe for clinic note documentation during this visit. I discussed the management of the patient's chronic conditions, emphasizing the importance of maintaining controlled blood pressure and cholesterol levels. We evaluated the recent lab results, noting the need to reduce iron intake due to improved hemoglobin levels, thus adjusting supplement frequency. I explained the rationale for modifying the levothyroxine dose in response to slightly elevated TSH levels, reassuring the patient that these changes are part of ongoing management for her autoimmune thyroiditis. Regarding her moderate aortic stenosis, I advised that she is stable and will not require immediate echocardiographic reassessment, though scheduling around the summer would be appropriate. We also reviewed the impact of prediabetes on her health and reinforced lifestyle modifications to manage this condition effectively. Orders: Orders Influenza [id number] Immunization Today Z23 - Encounter for immunization Thyroid Stimulating Hormone 6 Weeks E03.9 - Hypothyroidism, unspecified Total Protein 6 Weeks R77.8 - Other specified abnormalities of plasma proteins IRON PROFILE 4 Months D64.9 - Anemia, unspecified Comprehensive Dillon. Panel Fast 4 Months R73.02 - Impaired glucose tolerance (oral) Protein Electrophoresis, Serum 6 Weeks R77.8 - Other specified abnormalities of plasma proteins Lipid Panel 4 Months E78.5 - Hyperlipidemia, unspecified Complete Blood Count Auto Diff 4 Months D64.9 - Anemia, unspecified NT-proBNP 4 Months I50.9 - Heart failure, unspecified Medications: New levothyroxine 88 mcg PO DAILY 90 tabs 1RF 90 days Discontinued levothyroxine Discontinued Reason: Patient Completed Course 75 mcg PO DAILY 90 days 90 tabs 1RF Patient Instructions: - Continue current antihypertensive and hypercholesterolemia medications. Blood pressure home monitoring was advised to do it at least 3 times a week. - Implement dietary changes to manage prediabetes, focusing on protein-rich meals. - Reduce iron intake to once weekly. - Follow up with me in six weeks for thyroid reassessment and lab testing. - Schedule an echocardiogram for summer to monitor aortic stenosis. - Keep a detailed blood pressure log to review at subsequent appointments.
== END 2024-04-21 08:25 | disposition home or self-care (01) ==
PROVIDERS: PCP Internal Medicine; Visit Provider Internal Medicine
DX: I10 Essential (primary) hypertension (principal); E78.5 Hyperlipidemia, unspecified; E03.9 Hypothyroidism, unspecified; R73.02 Impaired glucose tolerance (oral); D50.0 Iron deficiency anemia secondary to blood loss (chronic); I35.0 Nonrheumatic aortic (valve) stenosis; Z23 Encounter for immunization

== ENCOUNTER → 2024-04-21 07:42 | Outpatient (BNVA) | payer MEDICARE, SELFPAY | PROVIDERS: PCP Internal Medicine; Visit Provider Internal Medicine | DX: Z23 Encounter for immunization (principal); I10 Essential (primary) hypertension; E78.5 Hyperlipidemia, unspecified; E03.9 Hypothyroidism, unspecified; R73.02 Impaired glucose tolerance (oral); D50.0 Iron deficiency anemia secondary to blood loss (chronic); I35.0 Nonrheumatic aortic (valve) stenosis | CPT/HCPCS: 90471; 90656; 96127; 99212 ==

== ENCOUNTER 2025-04-11 06:32 | Outpatient (REF) | payer MEDICARE, SELFPAY ==
--- OUTSIDE RECORDS SUMMARY | 2025-04-11 06:49 | XMS_ITS | Clinical Summary ---
Author Organization [facility] Address [address] [place] [phone] Phone Care Team Providers Care Dental Insurance Biller Name Role Phone Unavailable Primary Care Provider Unavailabl e Social History Tobacco Use Types Packs/Day Years Used Date Smoking Tobacco: Never Assessed Education Answer Date Recorded Are you interested in more education? Not on mike e 09/14/2022 Are you concerned about learning? Not on file 09/14/2022 No 09/14/2022 No 09/14/2022 Digital Access Answer Date Recorded No 10/15/2022 No 10/15/2022 Reliable internet access at home? Not on file 10/15/2022 Device with a working camera? Not on file Comments Unknown Sex and Gender Information Value Date Recorded Sex Assigned at Not on file Legal Sex Female 10:09 AM EST Gender Identity Not on file Sexual Orientation Not on file Plan of Treatment Not on file Medical Devices Not on file Additional Source Comments The information contained in this document represents components of the legal health record. It is not the complete legal health record.[facility]
--- OUTSIDE RECORDS SUMMARY | 2025-04-11 06:49 | XMS_ITS | Clinical Summary ---
Author Organization [facility] Facility Address [address] [place] [address], [place] [address] Care Team Providers Care Metal Plater Name Role Phone Allegra Figueroa MD Primary Care Provider [phone] Social History Tobacco Use Types Packs/Day Years Used Date Smoking Tobacco: Never Assessed Comments Unknown Sex and Gender Information Value Date Recorded Sex Assigned at Not on file Legal Sex Female 1:27 PM EDT Gender Identity Not on file Sexual Orientation Not on file Plan of Treatment Health Maintenance Due Date Last Done Comments Pneumococcal Vaccine: 50+ Ye ars (1 of 1 - PCV) 1991 Influenza Vaccine (#1) 2025 Hepatitis B Vaccine Aged Out No longe r eligible based on patient's age to complete this topic Insurance [facility] Care Teams Metal Plater Relationship Specialty Start Date End Date Allegra Figueroa MD [address] [place] [address] PCP - General Internal Medicine 08/29/21
[2025-04-11 06:53] LABS: MANUAL DIFF FLAG NO
[2025-04-11 08:12] LABS: Hematocrit 43.4 % (37.0-47.0); Hemoglobin 14.4 g/dl (12.0-16.0); Imm Gran Abs Auto 0.02 X10*3/uL (0.00-0.03); Imm Gran Pct Auto 0.3 % (0.0-0.4); Lymphocytes Absolute Auto 1.0 X10*3/uL (1.2-4.9); Mean Corpuscular HGB Conc 33.2 g/dl (31.0-35.0); Mean Corpuscular Hemoglobin 30.0 pg (27.0-33.0); Mean Corpuscular Volume 90.4 fL (80.0-98.0); NRBC Abs Auto 0.000 X10*3/uL (0.0-0.012); NRBC Pct Auto 0.0 /100WBC (0.0-0.2); Platelet Count 408 X10*3/uL (160-400); Red Blood Count 4.80 X10*6/uL (4.20-5.50); White Blood Count 6.0 X10*3/uL (4.8-10.8)
[2025-04-11 08:43] LABS: NT Pro B Type Natriuretic Pept 206.2 pg/mL (<300)
[2025-04-11 08:51] LABS: Alanine Aminotransferase 38 U/L (0-31); Albumin Level 5.0 g/dL (3.5-5.0); Anion Gap 12 (12-20); Aspartate Amino Transferase 41 U/L (5-31); Blood Urea Nitrogen 10 mg/dL (9-16); Calcium 9.9 mg/dL (8.4-10.2); Carbon Dioxide 27 mmol/L (22-29); Chloride 101 mmol/L (96-108); Cholesterol 155 mg/dL (<200); Estimated Glomerular Filt Rate > 60; HDL Cholesterol 53 mg/dL (>40); Iron 91 mcg/dL (30-160); Percent Iron Saturation 27 % (15-50); Potassium 4.1 mmol/L (3.3-5.1); Sodium 136 mmol/L (135-145); Total Iron Binding Capacity 343 mcg/dL (228-428); Total Protein 8.7 g/dL (6.5-8.0); Triglycerides 184 mg/dL (<150); Unsaturated Iron Binding 252 ug/dL
[2025-04-11 08:52] LABS: Alkaline Phosphatase 100 U/L (39-117)
[2025-04-11 08:55] LABS: Thyroid Stimulating Hormone 1.69 uIU/mL (0.32-4.0)
[2025-04-18 21:19] LABS: Prot Elec - Albumin 4.6 g/dL (3.8-4.8); Prot Elec - Alpha1 0.3 g/dL (0.2-0.3); Prot Elec - Alpha2 1.0 g/dL (0.5-0.9); Prot Elec - Beta 1 0.5 g/dL (0.4-0.6); Prot Elec - Beta 2 0.3 g/dL (0.2-0.5); Prot Elec - Gamma 1.5 g/dL (0.8-1.7); Prot Elec - Total Protein 8.1 g/dL (6.1-8.1)
== END 2025-04-11 06:33 | disposition home or self-care (01) ==
LOC: HO.LAB 06:32
PROVIDERS: PCP Internal Medicine; Visit Provider Internal Medicine
DX: R77.8 Other specified abnormalities of plasma proteins (principal); D50.0 Iron deficiency anemia secondary to blood loss (chronic); I50.9 Heart failure, unspecified; R73.02 Impaired glucose tolerance (oral); E78.5 Hyperlipidemia, unspecified; E03.9 Hypothyroidism, unspecified
CPT/HCPCS: 36415; 80053; 80061; 83540; 83880; 84165; 84443; 85025

== ENCOUNTER 2025-04-13 07:59 | Outpatient (AMB) | payer MEDICARE, SELFPAY ==
--- OUTSIDE RECORDS SUMMARY | 2025-04-13 08:09 | XMS_ITS | Clinical Summary ---
Author Organization [facility] Facility Address [address] [place] [address], [place] [address] Care Team Providers Care Talent Assistant Name Role Phone Allegra Figueroa MD Primary Care Provider [phone] Social History Tobacco Use Types Packs/Day Years [...] patient's age to complete this topic Insurance [facility] Care Teams Talent Assistant Relationship Specialty Start Date End Date Allegra Figueroa MD [address] [place] [address] PCP - General Internal Medicine 08/29/21
--- OUTSIDE RECORDS SUMMARY | 2025-04-13 08:09 | XMS_ITS | Clinical Summary ---
Author Organization [facility] Address [address] [place] [id number] Phone Care Team Providers Care Machine Installer Name Role Phone Unavailable Primary Care Provider [...] It is not the complete legal health record.[facility]
[2025-04-13 08:10] VITALS: BP 144/60; PULSE 82; TEMP 36.1; O2SAT 98; BMI 21.3
--- NOTE | 2025-04-13 08:10 | A.OFFPC_ITS ---
Vital Signs 04/13/25 08:10 Height 4 ft 11 in Weight 105 lb 8 oz BMI 21.3 BP 144/60 H Blood Pressure Location Lt brachial Position Sitting Pulse 82 Pulse Source Pulse Oximeter Temp 97.0 F Temp Source Temporal Artery Scan Pulse Oximetry (%) 98 Oxygen Delivery Method Room Air Intake Visit Reasons: follow up Event Staff Required: No Accompanied by: Daughter Allergies hydrochlorothiazide Allergy (Intermediate, Verified 04/13/25 08:31) restlessness amlodipine Adverse Reaction (Intermediate, Verified 04/13/25 08:31) dizziness, tiredness Medication List - Last Reconciled 04/13/25 by Allegra Blum MD amlodipine 5 mg See Protocol PO DAILY 90 days ascorbic acid (vitamin C) 500 mg PO DAILY 90 days atorvastatin 40 mg PO BEDTIME 90 days ferrous sulfate 325 mg PO Q OTHER DAY 90 days furosemide 20 mg See Protocol PO Q OTHER DAY 90 days levothyroxine 88 mcg PO DAILY 90 days mv,Ca,min-folic acid-vit K1 400-20 mcg (One-A-Day Women's 50 Plus) 1 tab PO DAILY 90 days omeprazole 20 mg PO DAILY PRN 90 days spironolactone 12.5 mg (1/2 x 25 mg) PO DAILY 90 days Tobacco use date assessed: 04/13/25 Fall risk assessment: No Falls in past year Last assessed Fall Risk: 04/13/25 Dental Screening Dental Screen Date: 04/13/25 Did you have a dental visit in the last 12 months?: No Did you have a dental problem in the last 6 months where you did not have access to dental care?: No Was dental information given to patient?: No HPI HPI Comments History of Present Illness Details The patient is an 85 year old individual with hypertension, hypothyroidism, hyperlipidemia, anemia and congestive heart failure presenting for follow-up and management of chronic conditions, including a review of recent lab results. Current medications include vitamin C, atorvastatin 40 mg for cholesterol, levothyroxine 88 mcg for hypothyroidism, a daily multivitamin, and omeprazole as needed. Furosemide 20 mg has been discontinued. The patient was previously taking ferrous sulfate once a week, but this has been discontinued due to consistently high hemoglobin levels, with a prior reading of 13.7. Blood pressure is noted to be better controlled. Hypothyroidism is well-managed on the current levothyroxine 88 mcg dose, with normal thyroid labs. Fasting blood glucose has improved from 113 to 109. The pat ient has persistently mildly elevated liver enzymes, which may be related to medications. Total protein was noted to be slightly elevated, and further testing has been ordered, with results pending. The patient has a history of congestive heart failure, which is currently controlled, and the last echocardiogram was in 2022. [facility] Medical History [place]UC[place] (acute kidney injury) Congestive heart failure Aortic stenosis Essential hypertension Dyslipidemia Hypothyroidism Iron deficiency anemia due to chronic blood loss Osteoporosis (~2003) Hyponatremia Surgical History History of esophagogastroduodenoscopy (EGD) History of colonoscopy History of breast biopsy Family History Father No problems noted. Mother In good health Social History Household Members: Spouse and Family Housing: House Do you presently have visiting nurse or other home services: No Alcohol intake: never Patient Tobacco Use Status: Former Tobacco user Tobacco use type: Cigarette Cigarettes Per Day: 2 e-Cigarette/Vaping Use: Never Used Second Hand Smoke Exposure: No Advance Directives Date on File: 05/15/22 service: No Current occupational status: disabled Cognitive needs: No Hearing needs: No Vision needs: No Questionnaire PHQ-9 Over the last 2 weeks, how often have you been bothered by any of the following problems? 1. Little interest or pleasure in doing things: not at all 2. Feeling down, depressed, or hopeless: not at all 3. Trouble falling or staying asleep, or sleeping too much: not at all 4. Feeling tired or having little energy: not at all 5. Poor appetite or overeating: not at all 6. Feeling bad about yourself - or that you are a failure or have let yourself or your family down: not at all 7. Trouble concentrating on things, such as reading the newspaper or watching television: not at all 8. Moving or speaking so slowly that other people could have noticed. Or the opposite - being so fidgety or restless that you have been moving around a lot more than usual: not at all 9. Thoughts that you would be better off or of hurting yourself in some way: not at all Total score: 0 Depression Screening Interpretation: Negative Depression Screening Done: Yes 88720 - PHQ-9 Billing: Yes Source: Developed by Drs. Sanket Drew, Sanjuanita Lockhart, Dominick Klein and colleagues, with an educational hermelindo from [employer]. Thrive Questionnaire Date Thrive assessed: 04/13/25 I am a: Patient What is your living situation today?: I have a steady place to live Within the past 12 months, did the food you bought not last and you didn't have the money to get more?: I choose not to answer this question Within the past 12 months, did you worry whether your food would run out before you got money to buy more?: I choose not to answer this question Do you have trouble paying for medicines?: I choose not to answer this question Do you have trouble getting transportation to medical appointments?: I choose not to answer this question Do you have trouble paying your heating and electricity bill?: I choose not to answer this question Do you have trouble taking care of your child, family member or friend?: I choose not to answer this question Do you have trouble with day-to-day activities such as bathing, preparing meals, shopping, managing finances, etc.?: I choose not to answer this question Are you currently unemployed and looking for a job?: I choose not to answer this question Are you interested in more education?: I choose not to answer this question Please select the resources that you would like help with: None Currently or been in a relationship where the following occur: I choose not to answer THRIVE Score: 0 AUDIT C Alcohol Use Questionnaire (AUDIT-C) 1. How often do you have a drink containing alcohol?: Never 3. How often do you have six or more drinks on one occasion?: Never Total Score: 0 ZAID-7 AMB Questionnaire ZAID-7 Date ZAID - 7 assessed: 04/13/25 Feeling nervous, anxious, or on edge: 0 = Not at all Not being able to stop or control worryin = Not at all Worrying too much about different things: 0 = Not at all Trouble relaxin = Not at all Being so restless that it is hard to sit still: 0 = Not at all Becoming easily annoyed or irritable: 0 = Not at all Feeling afraid as if something awful might happen: 0 = Not at all Total ZAID-7 score (0-4 normal; 5-9 mild; 10-14 moderate; 15-21 severe): 0 Source: Developed by Drs. Sanket Drew, Sanjuanita Lockhart, Dominick Klein and colleagues, with an educational hermelindo from [employer]. ZAID-7 Assessment Billing ZAID-7 Assessment Tool: ZAID-7 Assessment 23380 Review of Systems Const All systems reviewed & are unremarkable except as noted in HPI and below Card Denies chest pain at rest, Denies chest pain with activity, Denies edema, Denies irregular heart rhythm, Denies claudication, Denies dyspnea, Denies dyspnea on exertion, Denies orthopnea, Denies paroxysmal nocturnal dyspnea and Denies slow heart rate Resp Denies cough, Denies dyspnea and Denies dyspnea on exertion GI Denies abdominal pain, Denies change in bowel habits, Denies excessive flatus, Denies nausea and Denies vomiting Physical exam (Primary Care) Vital Signs: Last Vital Signs Temp 97.0 F 04/13/25 08:10 Pulse 82 04/13/25 08:10 BP 144/60 H 04/13/25 08:10 Pulse Ox 98 04/13/25 08:10 Oxygen Delivery Method Room Air 04/13/25 08:10 BMI result Body Mass Index 21.3 Tobacco/Smoking Status: Tobacco use Status Tobacco use date assessed 04/13/25 04/13/25 08:15 Patient Tobacco Use Status Former Tobacco user 04/13/25 08:15 Tobacco use type Cigarette 04/13/25 08:15 e-Cigarette/Vaping Use Never Used 04/13/25 08:15 PHQ-9: PHQ-9 Score PHQ-9: Total score 0 04/13/25 08:33 Depression Screening Interpretation: Negative Thrive Assessment: Date of Thrive Assessment Date Thrive assessed 04/13/25 04/13/25 08:15 Currently or been in a relationship where the following occur: I choose not to answer Resp Effort & Inspection: normal respiratory effort Auscultation: clear to auscultation bilaterally Cardio Jugular venous distension: no JVD Rate: regular rate Rhythm: regular rhythm Heart sounds: S1 normal heart sound present and S2 normal heart sound present Extrem General: Yes full ROM Office Procedures Flu Questionnaire Does the patient have a severe egg allergy?: No Does the patient have severe life threatening allergies?: No Does the patient have a fever or illness today?: No Has the patient ever had Guillain-[employer] Syndrome?: No Has the patient ever had any past reaction to a flu shot?: No Immunizations Fluarix [id number] (PF) 45 mcg (15 mcg x 3)/0.5 mL IM syringe Performing Provider: Allegra Blum MD [facility] [place] Administered by: Carrie Thibodeaux RN on 04/13/25 08:55 Dose Route Admin Location Dispensed Lot Number Expiration Date [facility] 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 VIS Given Date VIS Provided VIS Publication Date 04/13/25 Single Vaccine 24 Eligibility Eligibility Date Funding Source Not [facility] Eligible 04/13/25 Private Coding Level of Care Code Complex visit Add On G2211 Diagnoses Essential hypertension I10 Congestive heart failure I50.9 Dyslipidemia E78.5 Impaired glucose tolerance R73.02 Hypothyroidism, unspecified type E03.9 Hypothyroidism type: unspecified Iron deficiency anemia due to chronic blood loss D50.0 Elevated total protein R77.8 Additional Codes ZAID-7 Assessment Billing - ZAID-7 Assessment Tool: ZAID-7 Assessment 86674 ([id number]) PHQ-9 - 99800 - PHQ-9 Billing: Yes ([id number]) Time Spent (min) 24 Assessment & Plan Assessment & Plan (1) Essential hypertension: Code(s): I10 - Essential (primary) hypertension Category: Medical (2) Congestive heart failure: Code(s): I50.9 - Heart failure, unspecified Category: Medical (3) Dyslipidemia: Code(s): E78.5 - Hyperlipidemia, unspecified Category: Medical (4) Impaired glucose tolerance: Code(s): R73.02 - Impaired glucose tolerance (oral) Category: Medical (5) Hypothyroidism: Code(s): E03.9 - Hypothyroidism, unspecified Category: Medical Qualifiers: Hypothyroidism type: unspecified Qualified Code(s): E03.9 - Hypothyroidism, unspecified (6) Iron deficiency anemia due to chronic blood loss: Code(s): D50.0 - Iron deficiency anemia secondary to blood loss (chronic) Category: Medical (7) Elevated total protein: Code(s): R77.8 - Other specified abnormalities of plasma proteins Category: Medical Plan Plan 1. Congestive Heart Failure And Systolic Murmur The patient has a history of congestive heart failure which is controlled, and an NT-proBNP is less than 500. An echocardiogram will be ordered due to a systolic murmur and because the last one was performed in 2022. The patient follows with cardiology, though a recent appointment has not occurred. 2. History Of Iron Deficiency Anemia / Elevated Hemoglobin The patient's hemoglobin has been consistently high despite being on once-a-week ferrous sulfate supplementation. The decision was made to discontinue ferrous sulfate entirely. Dietary sources of iron were discussed. 3. Hypothyroidism The patient's hypothyroidism is well controlled with levothyroxine 88 mcg, and thyroid labs are normal. Will continue the current dose of levothyroxine 88 mcg daily. 4. Hypertension Continue spironolactone and amlodipine. Blood pressure goal is equal or less than 130/80. 5. Hyperlipidemia Continue statins. Orders: Orders CA echo transthoracic complete Today I50.9 - Heart failure, unspecified Lipid Panel 6 Months E78.5 - Hyperlipidemia, unspecified NT Pro B Type Natriuretic Pept 6 Months I50.9 - Heart failure, unspecified Influenza [id number] Immunization Today Z23 - Encounter for immunization Complete Blood Count Auto Diff 6 Months D64.9 - Anemia, unspecified IRON PROFILE 6 Months D64.9 - Anemia, unspecified Vitamin D 25-OH Total 6 Months E55.9 - Vitamin D deficiency, unspecified Comprehensive [place]. Panel Fast 6 Months I50.9 - Heart failure, unspecified Thyroid Stimulating Hormone 6 Months E03.9 - Hypothyroidism, unspecified
== END 2025-04-13 09:33 | disposition home or self-care (01) ==
LOC: HO.HMCH 08:00
PROVIDERS: PCP Internal Medicine; Visit Provider Internal Medicine
DX: I10 Essential (primary) hypertension (principal); I50.9 Heart failure, unspecified; E78.5 Hyperlipidemia, unspecified; R73.02 Impaired glucose tolerance (oral); E03.9 Hypothyroidism, unspecified; D50.0 Iron deficiency anemia secondary to blood loss (chronic); R77.8 Other specified abnormalities of plasma proteins; Z23 Encounter for immunization

== ENCOUNTER → 2025-04-13 07:59 | Outpatient (BNVA) | payer MEDICARE, SELFPAY | PROVIDERS: PCP Internal Medicine; Visit Provider Internal Medicine | DX: I11.0 Hypertensive heart disease with heart failure (principal); E78.5 Hyperlipidemia, unspecified; E03.9 Hypothyroidism, unspecified; I50.9 Heart failure, unspecified; D50.0 Iron deficiency anemia secondary to blood loss (chronic); R77.8 Other specified abnormalities of plasma proteins; Z23 Encounter for immunization; Z79.899 Other long term (current) drug therapy | CPT/HCPCS: 90471; 90656; 96127; 99212 ==